=== PATIENT | male | born 1950 | race Hispanic/Latino ===

== ENCOUNTER 2017-08-15 17:18 | Inpatient (IN) | payer MEDICARE ==
[~2017-08-15] VITALS: Ht 175.3 cm; Wt 84.6 kg
--- NOTE | 2017-08-15 18:51 | Diagnostic Imaging Report ---
PROCEDURE: A single AP view of the chest. COMPARISON: None. INDICATIONS: SHORT OF BREATH FINDINGS: Lines/tubes: None. Lungs: Lungs are well-inflated. Diffuse interstitial opacities extending from the bailee, predominantly involving the left lung, and to a lesser degree, the right lower lung. No consolidation. Pleura: There is no pleural effusion or pneumothorax. Heart and mediastinum: Enlarged cardiac silhouette. Central pulmonary venous congestion. Bones: No acute bony abnormality. IMPRESSION: 1. findings may represent interstitial pulmonary edema/decompensated CHF. Atypical pneumonia/ infection is a consideration, in the appropriate clinical setting Ismael Elliott M.D. Dictated by: Ismael Elliott M.D. on 08/15/2017 at 19:00 Electronically approved by: Ismael Elliott M.D. on 08/15/2017 at 19:00
[2017-08-15 18:55] LABS: BASOPHILS % 0.4 % (0.0-1.0); EOSINOPHILS # (AUTO) 0.3 (0.0-0.4); EOSINOPHILS % 2.9 % (0.0-6.0); LYMPHOCYTES % 9.2 % (18.0-39.1); MEAN CORPUSCULAR HEMOGLOBIN 17.7 pg (28-32); MEAN CORPUSCULAR HGB CONC 27.8 g/dL (31-35); MEAN CORPUSCULAR VOLUME 63.9 fL (81-99); MONOCYTES # (AUTO) 1.6 (0.2-0.8); NEUTROPHILS # (AUTO) 7.5 (2.1-6.9); NEUTROPHILS % 71.4 % (38.7-80.0); PLATELET COUNT 135 x10e3/uL (140-360); RED CELL DISTRIBUTION WIDTH 20.9 % (11.7-14.4)
[2017-08-15 18:58] LABS: HEMOGLOBIN 5.5 g/dL (14.0-18.0)
[2017-08-15 18:59] LABS: HEMATOCRIT 19.8 % (38.2-49.6)
[2017-08-15 19:02] LABS: INR 1.41
[2017-08-15 19:03] LABS: PARTIAL THROMBOPLASTIN TIME 38.5 seconds (23.8-35.5)
[2017-08-15 19:04] LABS: CLARITY,URINE SL CLOUDY (CLEAR); COLOR,URINE STRAW (YELLOW)
[2017-08-15 19:05] LABS: KETONES,URINE TRACE (NEGATIVE); LEUKOCYTE ESTERASE ,URINE NEGATIVE (NEGATIVE); NITRITE,URINE NEGATIVE (NEGATIVE); PROTEIN,URINE DIPSTICK NEGATIVE (NEGATIVE); URINE UROBILINOGEN 8 mg/dL (0.2 - 1)
[2017-08-15 19:08] LABS: BILIRUBIN,URINE 1+ (NEGATIVE)
[2017-08-15 19:11] LABS: ALANINE AMINOTRANSFERASE 23 IU/L (0-55); ALBUMIN 2.3 g/dL (3.5-5.0); ALBUMIN/GLOBULIN RATIO 0.6 (0.8-2.0); ALKALINE PHOSPHATASE 85 IU/L (40-150); ANION GAP 9.3 mmol/L (8-16); BLOOD UREA NITROGEN 16 mg/dL (7-26); BUN/CREATININE RATIO 19 (6-25); CALCIUM 7.4 mg/dL (8.4-10.2); CARBON DIOXIDE 23 mmol/L (22-29); CHLORIDE 109 mmol/L (98-107); CREATINE KINASE 191 IU/L (30-200); CREATININE, SERUM 0.85 mg/dL (0.72-1.25); EST GLOMERULAR FILTRATION RATE > 60 ML/MIN (60-); GLUCOSE 157 mg/dL (74-118); POTASSIUM 3.3 mmol/L (3.5-5.1); SODIUM 138 mmol/L (136-145)
[2017-08-15 19:21] LABS: EPITHELIAL CELLS,URINE FEW /LPF
[2017-08-15] MEDS ORDERED: PANTOPRAZOLE 40 MG 10ML VIAL IV STA (20:09)
[2017-08-15] MEDS ORDERED: OCTREOTIDE ACETATE 0.05 MG/ML AMP IV STA (20:09)
[2017-08-15 20:56] LABS: HYPOCHROMASIA MARKED; LYMPHOCYTES % (MANUAL) 4 % (19-48); MONOCYTES % (MANUAL) 12 % (3.4-9.0); NEUTROPHILS % (MANUAL) 84 % (40-74)
[2017-08-15 20:57] LABS: ANISOCYTOSIS SLIG; PLATELET ESTIMATE SLIGHTLY DECREASED; PLATELET MORPHOLOGY COMMENT FEW LARGE; POIKILOCYTOSIS SLIGHT; RBC MORPHOLOGY COMMENT ABNORMAL
[2017-08-15] MEDS ORDERED: SODIUM CHLORIDE 0.9% 250ML 250 ML IV ONE (21:00)
[2017-08-15] MEDS: OCTREOTIDE ACETATE 500 MCG in SODIUM CHLORIDE 0.9% 250ML 250 ML IV SCH (21:14)
[2017-08-15] MEDS: AZITHROMYCIN 500MG/NS 250 ML 250 ML IV SCH (23:15)
[2017-08-15] MEDS ORDERED: PHYTONADIONE 10 MG/ML AMP PO ONE (23:15)
[2017-08-15] MEDS ORDERED: ALBUTEROL SULF 0.083% NEB SOLN 3 ML NEB NEB STA (23:23)
[2017-08-15] MEDS ORDERED: FUROSEMIDE INJ 10 MG/ML 2 ML VIAL IV ONE (23:30)
[2017-08-15] MEDS ORDERED: IPRATROPIUM BROMIDE 0.02% 2.5 ML NEB NEB ONE (23:30)
--- NOTE | 2017-08-15 23:35 | Diagnostic Imaging Report ---
EXAM: US ABDOMEN COMPLETE DATE: 08/15/2017 12:00 AM Time stamp on exam: 2245 hours INDICATION: Cirrhosis COMPARISON: None TECHNIQUE: Transverse and longitudinal avery scale and color doppler sonographic images of the upper abdomen were obtained. FINDINGS: LIVER 13.3 cm in the right midclavicular line. Cirrhotic liver morphology. SPLEEN 13.2 cm in maximum diameter. Normal echogenicity, no masses. GALLBLADDER No gallstones. Mild wall thickening likely related to portal hypertension. Negative sonographic Gadrner's sign. BILE DUCTS No intra nor extra-hepatic biliary dilation. Common bile duct measures 0.3 cm PANCREAS: Obscured by bowel gas RIGHT KIDNEY: 11.5 x 6 x 6.1 cm Echogenicity: Normal Collecting System: No hydronephrosis Stones: None Cyst/Mass: None LEFT KIDNEY: 11 x 5.8 x 5.8 cm Echogenicity: Normal Collecting System: No hydronephrosis Stones: None Cyst/Mass: None VESSELS: Aorta: Poorly visualized secondary to bowel gas Inferior Vena Cava: Poorly visualized secondary to bowel gas Main Portal Vein: 0.9 cm, normal size with hepatopetal flow. FREE FLUID: Partially visualized right pleural effusion and moderate volume ascites right upper quadrant. IMPRESSION: Cirrhosis with portal hypertension and moderate volume ascites in the right upper quadrant. Signed by: Dr. Mai Tracy M.D. on 08/15/2017 11:31 PM
[2017-08-15] MEDS: CEFTRIAXONE SOD 1 GM VIAL IV SCH (23:50)
[2017-08-16] MEDS ORDERED: SODIUM CHLORIDE 0.9% 50ML 50 ML ONE (00:20)
[2017-08-16] MEDS ORDERED: IOPAMIDOL 370 MG/ML 200 ML INFUS..BTL INJ ONE (00:20)
[2017-08-16] MEDS ORDERED: SODIUM CHLORIDE 0.9% 250ML 250 ML ONE ×3 (01:14→14:08)
--- NOTE | 2017-08-16 01:15 | Diagnostic Imaging Report ---
EXAM: CT CHEST W DATE: 08/16/2017 12:02 AM Time stamp on exam: 0033 hours INDICATION: Shortness of breath with positive d-dimer, cirrhosis and ascites COMPARISON: None TECHNIQUE: Multidetector CT scanning of the chest was performed. Coronal and sagittal multiplanar reformations were obtained. PE protocol performed. IV Contrast: 62 cc Isovue-370 CTDIvol has been reviewed. It is below the limits set by the Radiation Protocol Committee (RPC). FINDINGS: LUNGS AND AIRWAYS: The trachea and major bronchi are unremarkable. Interstitial thickening and dense centrilobular groundglass opacities predominantly in the bilateral upper lobes and to a lesser extent the lung bases and middle lobe. PLEURA: Moderate layering pleural effusions bilaterally. HEART, MEDIASTINUM, VESSELS: The heart is mildly enlarged. Trace pericardial effusion. No mediastinal mass or lymphadenopathy. No thoracic aortic aneurysm. No evidence of a pulmonary embolism. UPPER ABDOMEN: Cirrhotic liver morphology, splenomegaly, moderate volume ascites and splenic varices. MUSCULOSKELETAL: No acute findings. IMPRESSION: 1. No evidence of a pulmonary embolism. 2. Lung findings likely represent endobronchial spread of atypical infection. The differential diagnosis includes hypersensitivity pneumonitis. 3. Cirrhosis with portal hypertension, moderate volume ascites in the upper abdomen and moderate bilateral layering pleural effusions. Signed by: Dr. Mai Tracy M.D. on 08/16/2017 1:11 AM
[2017-08-16] MEDS ORDERED: METHYLPREDNISOLONE SOD SUCC 125 MG/2ML VIAL ONE (02:36)
[2017-08-16] MEDS ORDERED: DIPHENHYDRAMINE HCL INJ 1 ML ONE (02:37)
[2017-08-16] MEDS ORDERED: DIPHENHYDRAMINE HCL INJ 50 MG/ML VIAL IV ONE (03:00)
[2017-08-16] MEDS ORDERED: METHYLPREDNISOLONE SOD SUCC 125 MG/2ML VIAL IV ONE (03:00)
[2017-08-16] MEDS ORDERED: PHYTONADIONE 10 MG/ML AMP SQ ONE (04:15)
[2017-08-16 04:22] LABS: ABG PH 7.38 (7.31-7.41)
--- NOTE | 2017-08-16 04:35 | Diagnostic Imaging Report ---
EXAM: CHEST SINGLE (PORTABLE), AP 1 view ORDER DATE: 08/16/2017 4:10 AM Time stamp on exam: 0419 hours INDICATION: Worsening shortness of breath COMPARISON: CT of the chest August 16, 2017 FINDINGS: LINES/TUBES: None LUNGS: Bilateral reticulonodular changes and confluent airspace opacities predominantly in the bilateral upper lungs and to a lesser extent the lung bases. PLEURA: No effusions or pneumothorax. HEART AND MEDIASTINUM: Mild cardiac enlargement. BONES AND SOFT TISSUES: No acute findings. IMPRESSION: Findings consistent with multifocal atypical infection. Signed by: Dr. Mai Tracy M.D. on 08/16/2017 4:32 AM
[2017-08-16 06:34] LABS: INR 1.46
[2017-08-16 06:35] LABS: PARTIAL THROMBOPLASTIN TIME 39.5 seconds (23.8-35.5)
[2017-08-16 06:40] LABS: BASOPHILS % 0.2 % (0.0-1.0); EOSINOPHILS # (AUTO) 0.1 (0.0-0.4); EOSINOPHILS % 1.1 % (0.0-6.0); LYMPHOCYTES # (AUTO) 0.5 (1.0-3.2); LYMPHOCYTES % 4.4 % (18.0-39.1); MEAN CORPUSCULAR HEMOGLOBIN 18.2 pg (28-32); MEAN CORPUSCULAR HGB CONC 28.7 g/dL (31-35); MEAN CORPUSCULAR VOLUME 63.6 fL (81-99); MONOCYTES # (AUTO) 0.6 (0.2-0.8); MONOCYTES % 5.3 % (4.4-11.3); NEUTROPHILS # (AUTO) 9.2 (2.1-6.9); NEUTROPHILS % 87.9 % (38.7-80.0); PLATELET COUNT 112 x10e3/uL (140-360); RED BLOOD COUNT 2.58 x10e6/uL (4.3-5.7); RED CELL DISTRIBUTION WIDTH 20.6 % (11.7-14.4)
[2017-08-16 06:44] LABS: HEMATOCRIT 16.4 % (38.2-49.6); HEMOGLOBIN 4.7 g/dL (14.0-18.0)
[2017-08-16 06:49] LABS: PROTHROMBIN TIME 18.5 seconds (11.9-14.5)
[2017-08-16 07:00] LABS: ALANINE AMINOTRANSFERASE 21 IU/L (0-55); ALBUMIN 2.1 g/dL (3.5-5.0); ALBUMIN/GLOBULIN RATIO 0.6 (0.8-2.0); ALKALINE PHOSPHATASE 79 IU/L (40-150); ANION GAP 8.8 mmol/L (8-16); BLOOD UREA NITROGEN 14 mg/dL (7-26); BUN/CREATININE RATIO 18 (6-25); CALCIUM 7.2 mg/dL (8.4-10.2); CARBON DIOXIDE 24 mmol/L (22-29); CHLORIDE 110 mmol/L (98-107); CREATINE KINASE 199 IU/L (30-200); CREATININE, SERUM 0.78 mg/dL (0.72-1.25); EST GLOMERULAR FILTRATION RATE > 60 ML/MIN (60-); GLUCOSE 128 mg/dL (74-118); POTASSIUM 3.8 mmol/L (3.5-5.1); SODIUM 139 mmol/L (136-145)
[2017-08-16 07:20] VITALS: BP 123/79
[2017-08-16 07:30] VITALS: BP 123/79
[2017-08-16] MEDS ORDERED: FUROSEMIDE INJ 10 MG/ML 4 ML VIAL IV ONE (07:30)
[2017-08-16 07:50] VITALS: BP 130/75
--- NOTE | 2017-08-16 08:17 | Diagnostic Imaging Report ---
PROCEDURE:CHEST SINGLE (PORTABLE) TECHNIQUE:Portable AP chest INDICATION:Central line placement COMPARISON:[facility], DX, CHEST SINGLE (PORTABLE), 08/16/2017, 4:19. FINDINGS: See conclusion. CONCLUSION: 1. Right internal jugular central venous catheter tip about 7 cm from the atrial caval junction, terminating in the upper SVC. 2. Bilateral airspace opacities consistent with pulmonary edema increased from 4:19 AM. No evidence of pneumothorax. 3. No sizable pleural effusion. 4. Stable cardiomegaly. Dictated by: Cornelius Lainez M.D. on 08/16/2017 at 8:26 Electronically approved by: Cornelius Lainez M.D. on 08/16/2017 at 8:26
[2017-08-16] MEDS: OCTREOTIDE ACETATE 500 MCG in SODIUM CHLORIDE 0.9% 250ML 250 ML IV SCH ×2 (08:48→20:48)
[2017-08-16 08:53] LABS: LYMPHOCYTES % (MANUAL) 1 % (19-48); NEUTROPHILS % (MANUAL) 98 % (40-74); NUCLEATED RED BLOOD CELLS 2; PLATELET ESTIMATE ADEQUATE; PLATELET MORPHOLOGY COMMENT FEW LARGE; RBC MORPHOLOGY COMMENT ABNORMAL
[2017-08-16 08:54] LABS: ANISOCYTOSIS SLIG; MICROCYTOSIS SLIG; POIKILOCYTOSIS SLIG; TARGET CELLS FEW
[2017-08-16] MEDS ORDERED: ETOMIDATE 2 MG/ML 10 ML INJ IV STA (09:00)
[2017-08-16] MEDS ORDERED: SUCCINYLCHOLINE 200 MG/10 ML SYR IV STA (09:00)
[2017-08-16] MEDS: PANTOPRAZOLE 40 MG 10ML VIAL IV SCH ×2 (09:02→21:53)
[2017-08-16] MEDS ORDERED: PHYTONADIONE 10 MG/ML AMP SQ SCH (09:15)
[2017-08-16] MEDS: PROPOFOL IV EMULSION 10MG/ML 100 ML IV SCH (09:18)
[2017-08-16] MEDS: AZITHROMYCIN 500MG/NS 250 ML 250 ML IV SCH (09:52)
--- NOTE | 2017-08-16 10:11 | Diagnostic Imaging Report ---
PROCEDURE:CHEST SINGLE (PORTABLE) TECHNIQUE:Portable AP chest INDICATION:Intubation COMPARISON:[facility], , CHEST SINGLE (PORTABLE), 08/16/2017, 8:07. FINDINGS: See conclusion. CONCLUSION: 1. Endotracheal tube tip is 6 cm from the mariposa. 2. Other findings are unchanged from 8:07 AM. Dictated by: Cornelius Lainez M.D. on 08/16/2017 at 10:20 Electronically approved by: Cornelius Lainez M.D. on 08/16/2017 at 10:20
[2017-08-16] MEDS: CEFTRIAXONE SOD 1 GM VIAL IV SCH ×2 (11:00→23:18)
[2017-08-16 11:22] LABS: ABG HCO3 25 mmol/L (23-28); ABG PCO2 52 mmHg (41-51); ABG PH 7.28 (7.31-7.41); ABG PO2 247 mmHg (80-105)
[2017-08-16] MEDS: FUROSEMIDE INJ 10 MG/ML 2 ML VIAL IV PRN (17:10)
[2017-08-16 18:28] LABS: BASOPHILS % 0.1 % (0.0-1.0); LYMPHOCYTES # (AUTO) 0.6 (1.0-3.2); LYMPHOCYTES % 5.2 % (18.0-39.1); MEAN CORPUSCULAR HEMOGLOBIN 21.3 pg (28-32); MEAN CORPUSCULAR HGB CONC 30.7 g/dL (31-35); MEAN CORPUSCULAR VOLUME 69.3 fL (81-99); MONOCYTES # (AUTO) 0.6 (0.2-0.8); MONOCYTES % 4.6 % (4.4-11.3); NEUTROPHILS # (AUTO) 10.7 (2.1-6.9); NEUTROPHILS % 89.2 % (38.7-80.0); PLATELET COUNT 106 x10e3/uL (140-360); RED BLOOD COUNT 3.29 x10e6/uL (4.3-5.7)
[2017-08-16] MEDS ORDERED: SUCCINYLCHOLINE CHLORIDE 20 MG/ML 10ML VIAL ONE (18:33)
[2017-08-16] MEDS ORDERED: ETOMIDATE 2 MG/ML 10 ML INJ IV ONE (18:33)
[2017-08-16 18:34] LABS: HEMATOCRIT 22.8 % (38.2-49.6)
[2017-08-16 18:49] LABS: CREATINE KINASE MB 2.2 ng/mL (0.00-5.00)
[2017-08-16 19:00] VITALS: BP 102/58
[2017-08-16] MEDS ORDERED: CALCIUM GLUCONATE 10% INJ 9.3 MEQ in SODIUM CHLORIDE 0.9% 100 ML 100 ML IV ONE (19:00)
[2017-08-16] MEDS ORDERED: SODIUM CHLORIDE 0.9% 250ML 250 ML IV ONE (19:15)
[2017-08-16] MEDS ORDERED: CALCIUM GLUCONATE 10% INJ 0.465 MEQ/ML VIAL ONE (21:39)
[2017-08-16 21:44] LABS: HEMATOCRIT 23.6 % (38.2-49.6)
[2017-08-16 21:46] LABS: HEMOGLOBIN 7.2 g/dL (14.0-18.0)
[2017-08-16 21:53] LABS: ANION GAP 9.7 mmol/L (8-16); BLOOD UREA NITROGEN 18 mg/dL (7-26); BUN/CREATININE RATIO 21 (6-25); CARBON DIOXIDE 25 mmol/L (22-29); CHLORIDE 108 mmol/L (98-107); CREATININE, SERUM 0.84 mg/dL (0.72-1.25); EST GLOMERULAR FILTRATION RATE > 60 ML/MIN (60-); GLUCOSE 148 mg/dL (74-118); POTASSIUM 3.7 mmol/L (3.5-5.1); SODIUM 139 mmol/L (136-145)
[2017-08-16] MEDS: FUROSEMIDE INJ 10 MG/ML 4 ML VIAL IV SCH (21:54)
[2017-08-16] MEDS ORDERED: PHYTONADIONE 10MG/ML 20 MG in SODIUM CHLORIDE 0.9% 100 ML 100 ML IV ONE (23:45)
[2017-08-17] VITALS (17 sets, daily range): BP systolic 80–118; BP diastolic 46–66
[2017-08-17] MEDS ORDERED: PHYTONADIONE 10 MG/ML AMP IV ONE
[2017-08-17] MEDS ORDERED: SODIUM CHLORIDE 0.9% 250ML 250 ML ONE ×2 (00:02→01:24)
[2017-08-17] MEDS: OCTREOTIDE ACETATE 500 MCG in SODIUM CHLORIDE 0.9% 250ML 250 ML IV SCH ×3 (00:05→21:37)
[2017-08-17] MEDS: MIDAZOLAM HCL 25 MG in SODIUM CHLORIDE 0.9% 50ML 45 ML IV PRN ×2 (00:30→06:22)
[2017-08-17] MEDS ORDERED: SODIUM CHLORIDE 0.9% IV ONE (03:00)
[2017-08-17] MEDS ORDERED: VANCOMYCIN HCL IV ONE (03:00)
[2017-08-17] MEDS: PROPOFOL IV EMULSION 10MG/ML 100 ML IV SCH (03:27)
[2017-08-17] MEDS ORDERED: SODIUM CHLORIDE 0.9% 500ML 500 ML ONE (03:36)
[2017-08-17] MEDS ORDERED: VANCOMYCIN 1GM/NS 250 ML 500 ML ONE (03:37)
[2017-08-17] MEDS: FUROSEMIDE INJ 10 MG/ML 2 ML VIAL IV PRN (03:42)
[2017-08-17] MEDS: FUROSEMIDE INJ 10 MG/ML 4 ML VIAL IV SCH ×3 (04:55→17:38)
--- NOTE | 2017-08-17 05:38 | Diagnostic Imaging Report ---
EXAM: CHEST SINGLE (PORTABLE), AP 1 view ORDER DATE: 08/17/2017 5:00 AM Time stamp on exam: 0515 hours INDICATION: CHF COMPARISON: AP view of the chest October 14, 2017 FINDINGS: LINES/TUBES: Endotracheal tube terminates 3.2 cm above the mariposa. Right internal jugular vein central line terminates in expected location of the mid superior vena cava. LUNGS: Diffuse bilateral interstitial and alveolar opacities. PLEURA: No effusions or pneumothorax. HEART AND MEDIASTINUM: Stable enlargement of the cardiomediastinal silhouette. BONES AND SOFT TISSUES: No acute findings. IMPRESSION: Interval placement of endotracheal tube and internal jugular vein central line. Otherwise, stable appearance of the chest with findings consistent with multifocal pneumonia. Signed by: Dr. Mai Tracy M.D. on 08/17/2017 5:35 AM
[2017-08-17 05:40] LABS: BASOPHILS % 0.1 % (0.0-1.0); HEMATOCRIT 26.9 % (38.2-49.6); HEMOGLOBIN 8.5 g/dL (14.0-18.0); LYMPHOCYTES # (AUTO) 0.9 (1.0-3.2); LYMPHOCYTES % 4.7 % (18.0-39.1); MEAN CORPUSCULAR HEMOGLOBIN 22.6 pg (28-32); MEAN CORPUSCULAR HGB CONC 31.6 g/dL (31-35); MEAN CORPUSCULAR VOLUME 71.5 fL (81-99); MONOCYTES # (AUTO) 1.3 (0.2-0.8); MONOCYTES % 6.5 % (4.4-11.3); NEUTROPHILS # (AUTO) 16.9 (2.1-6.9); NEUTROPHILS % 87.7 % (38.7-80.0); PLATELET COUNT 107 x10e3/uL (140-360); RED BLOOD COUNT 3.76 x10e6/uL (4.3-5.7); RED CELL DISTRIBUTION WIDTH 25.3 % (11.7-14.4)
[2017-08-17 05:59] LABS: ALANINE AMINOTRANSFERASE 17 IU/L (0-55); ALBUMIN 1.9 g/dL (3.5-5.0); ALBUMIN/GLOBULIN RATIO 0.5 (0.8-2.0); ALKALINE PHOSPHATASE 68 IU/L (40-150); ANION GAP 8.4 mmol/L (8-16); BLOOD UREA NITROGEN 20 mg/dL (7-26); BUN/CREATININE RATIO 24 (6-25); CARBON DIOXIDE 26 mmol/L (22-29); CHLORIDE 109 mmol/L (98-107); CREATINE KINASE 83 IU/L (30-200); CREATININE, SERUM 0.82 mg/dL (0.72-1.25); EST GLOMERULAR FILTRATION RATE > 60 ML/MIN (60-); GLUCOSE 136 mg/dL (74-118); LIPASE 305 U/L (8-78); MAGNESIUM 1.8 MG/DL (1.3-2.1); POTASSIUM 3.4 mmol/L (3.5-5.1); SODIUM 140 mmol/L (136-145)
[2017-08-17 06:04] LABS: CALCIUM 6.9 mg/dL (8.4-10.2)
[2017-08-17 06:12] LABS: ANISOCYTOSIS MODERATE; HYPOCHROMASIA MARKED; MICROCYTOSIS MODERATE; PLATELET ESTIMATE SLIGHTLY DECREASED; PLATELET MORPHOLOGY COMMENT FEW LARGE; POLYCHROMASIA FEW; RBC MORPHOLOGY COMMENT ABNORMAL; TARGET CELLS FEW
[2017-08-17 06:19] LABS: THYROID STIMULATING HORMONE 0.439 uIU/mL (0.350-4.940)
[2017-08-17] MEDS: AZITHROMYCIN 500MG/NS 250 ML 250 ML IV SCH (10:31)
[2017-08-17] MEDS: PANTOPRAZOLE 40 MG 10ML VIAL IV SCH ×2 (10:31→21:37)
[2017-08-17] MEDS: CEFTRIAXONE SOD 1 GM VIAL IV SCH ×2 (11:08→23:18)
[2017-08-17] MEDS ORDERED: INFLUENZA VIRUS VAC SPLIT INJ 0.5 ML SYR IM ONE (12:00)
[2017-08-17] MEDS ORDERED: PNEUMOCOCCAL VACCINE POLYVALENT 23 MCG/0.5 ML VIAL IM ONE (12:00)
[2017-08-17] MEDS ORDERED: NOREPINEPHRINE BITARTRATE/ NS 250 ML ONE (12:06)
[2017-08-17] MEDS ORDERED: NOREPINEPHRINE BITARTRATE/ NS 250 ML IV SCH (12:15)
[2017-08-17 12:41] LABS: BASOPHILS % 0.1 % (0.0-1.0); EOSINOPHILS % 0.1 % (0.0-6.0); HEMATOCRIT 30.8 % (38.2-49.6); HEMOGLOBIN 9.8 g/dL (14.0-18.0); LYMPHOCYTES # (AUTO) 1.4 (1.0-3.2); LYMPHOCYTES % 5.3 % (18.0-39.1); MEAN CORPUSCULAR HEMOGLOBIN 22.4 pg (28-32); MEAN CORPUSCULAR HGB CONC 31.8 g/dL (31-35); MEAN CORPUSCULAR VOLUME 70.5 fL (81-99); MONOCYTES # (AUTO) 1.6 (0.2-0.8); MONOCYTES % 5.8 % (4.4-11.3); NEUTROPHILS # (AUTO) 23.7 (2.1-6.9); NEUTROPHILS % 87.6 % (38.7-80.0); PLATELET COUNT 136 x10e3/uL (140-360); RED BLOOD COUNT 4.37 x10e6/uL (4.3-5.7); RED CELL DISTRIBUTION WIDTH 25.4 % (11.7-14.4)
[2017-08-17] MEDS ORDERED: CALCIUM GLUCONATE 10% INJ 0.465 MEQ/ML VIAL ONE (12:46)
[2017-08-17] MEDS ORDERED: CALCIUM GLUCONATE 10% INJ 4.65 MEQ in SODIUM CHLORIDE 0.9% 50ML 50 ML IV ONE ×2 (13:30→16:30)
--- NOTE | 2017-08-17 13:38 | Operative Report ---
DATE OF PROCEDURE: August 17, 2017 REFERRING PHYSICIAN: Dr. Foster Forman PROCEDURE PERFORMED: Esophagogastroduodenoscopy. INDICATIONS FOR EGD: Anemia, history of melena, history of cirrhosis of the liver. MEDICATION: The patient is on a vent. Please see the anesthesiologist's note. PROCEDURE: With the patient in the supine position and under adequate general endotracheal anesthesia, the flexible fiberoptic Olympus gastroscope was introduced into the esophagus under direct visualization without any difficulty. Grade 1 to 2 esophageal varices were noted with the varices being predominantly grade 1 without active bleeding or stigmata of recent hemorrhage. The scope was then advanced with ease into the stomach, and some changes compatible with portal hypertensive gastropathy were noted in the antrum and distal body predominantly. Again, no active bleeding and no stigmata of recent hemorrhage was noted. The pylorus was of normal contour and shape. It was intubated with ease, and the scope was advanced all the way to the 2nd portion of the duodenum. The scope was then withdrawn slowly. Mucosa overlying the proximal 2nd portion and duodenal bulb appeared to be within normal limits. The scope was then withdrawn back into the stomach and retroflexed. A cluster of esophageal varices was noted in the fundus without active bleeding or stigmata of recent hemorrhage. The scope was then straightened out. The stomach was decompressed. Scope was subsequently withdrawn. Patient tolerated the procedure well. IMPRESSION 1. Esophageal varices, grade 1 to 2 but predominantly grade 1 without active bleeding or stigmata of recent hemorrhage. 2. Cluster of varices, fundus, without active bleeding or stigmata of recent hemorrhage. 3. Portal hypertensive gastropathy. PLAN: Follow H and H. Findings do not necessarily explain the patient's anemia or blood loss. Might benefit from a colonoscopy. Job#: [id number] cc:FOSTER FORMAN MD
[2017-08-17] MEDS ORDERED: POTASSIUM CHLORIDE 40 MEQ in SODIUM CHLORIDE 0.9% 250ML 250 ML IV ONE (16:30)
[2017-08-17] MEDS ORDERED: POTASSIUM CHLORIDE 100 ML IV ONE (16:30)
[2017-08-17] MEDS ORDERED: POTASSIUM CHLORIDE 20MEQ/100ML 200 ML IV ONE (16:30)
[2017-08-17] MEDS ORDERED: POTASSIUM CHLORIDE 20MEQ/100ML 100 ML IV ONE (16:45)
[2017-08-17] MEDS ORDERED: CALCIUM GLUCONATE 10% INJ 9.3 MEQ in SODIUM CHLORIDE 0.9% 100 ML 100 ML IV ONE (17:30)
[2017-08-17] MEDS ORDERED: SODIUM CHLORIDE 0.9% 1000ML 1,000 ML ONE (17:44)
[2017-08-17] MEDS ORDERED: KETAMINE HCL INJ 50 MG/ML 10 ML VIAL ONE (19:06)
[2017-08-17] MEDS: POTASSIUM CHLORIDE 20MEQ/100ML 100 ML IV SCH (21:37)
[2017-08-17 22:33] LABS: BASOPHILS % 0.2 % (0.0-1.0); EOSINOPHILS # (AUTO) 0.2 (0.0-0.4); EOSINOPHILS % 0.9 % (0.0-6.0); HEMATOCRIT 30.4 % (38.2-49.6); HEMOGLOBIN 9.6 g/dL (14.0-18.0); LYMPHOCYTES # (AUTO) 2.1 (1.0-3.2); LYMPHOCYTES % 8.4 % (18.0-39.1); MEAN CORPUSCULAR HEMOGLOBIN 22.3 pg (28-32); MEAN CORPUSCULAR HGB CONC 31.6 g/dL (31-35); MEAN CORPUSCULAR VOLUME 70.7 fL (81-99); MONOCYTES # (AUTO) 2.1 (0.2-0.8); MONOCYTES % 8.5 % (4.4-11.3); NEUTROPHILS # (AUTO) 19.9 (2.1-6.9); NEUTROPHILS % 80.7 % (38.7-80.0); PLATELET COUNT 142 x10e3/uL (140-360); RED CELL DISTRIBUTION WIDTH 26.1 % (11.7-14.4)
--- NOTE | 2017-08-17 23:05 | History and Physical ---
PRIMARY CARE PHYSICIAN: Unknown. CHIEF COMPLAINT: Anemia. HISTORY OF PRESENT ILLNESS: Mr. Guerra is a 67-year-old gentleman who was instructed to go to the ER by his clinic due to low blood counts. The patient was seen in clinic several days ago. He was called yesterday to report to the ER where he was found to have a hemoglobin of 5.5. REVIEW OF SYSTEMS: Unobtainable as the patient is intubated. PAST MEDICAL HISTORY: Sketchy. The patient has a history of cirrhosis due to chronic hepatitis C that was treated successfully with Harvoni 2 years ago. PAST SURGICAL HISTORY: He has no previous surgical history. MEDICATIONS: He has no home meds listed. ALLERGIES: HE HAS A STATED ALLERGY TO PENICILLIN AND CODEINE. FAMILY HISTORY: Unknown. SOCIAL HISTORY: The patient is . He does not smoke, drink or use illegal drugs. He had been generally independently functioning. PHYSICAL EXAM: PSYCHIATRIC: Unobtainable as the patient is intubated. VITAL SIGNS: Blood pressure currently 102/58. He has not been hypertensive. Pulse 62 and regular. Respiratory rate 24. O2 sat 97% better after intubation. Temperature 97.6. HEENT: Head is atraumatic. His eyes are anicteric. He is orally intubated. NECK: Is supple with no mass or thyromegaly. LYMPHATIC SYSTEM: No palpable cervical, axillary or inguinal adenopathy. CARDIOVASCULAR: Heart has a regular rate and rhythm without extra heart sound. He has 1+ pitting edema of both lower extremities. RESPIRATORY: Lungs reveal diminished breath sounds, but otherwise clear, somewhat coarse in nature. He is being ventilated. GASTROINTESTINAL: Abdomen is soft without organomegaly, masses or tenderness. Normal bowel sounds present. CUTANEOUS: Skin is warm and dry to touch with no rash or skin breakdown. MUSCULOSKELETAL: His joints are in normal alignment without erythema or swelling. Has no calf tenderness. NEUROLOGIC: Currently sedated; however, does move all extremities when sedation weaned. DIAGNOSTIC STUDIES: Ultrasound shows cirrhosis with portal hypertension and moderate ascites. First chest x-ray shows pulmonary edema versus pneumonia. CT chest done due to elevated D-dimer shows no pulmonary embolus and atypical bilateral multifocal pneumonia. Last chest x-ray after intubation again showed pulmonary edema versus multifocal bilateral pneumonia. His flu screen was negative. UA was clear. Initial blood gas with pH 7.38, PCO2 of 34, PO2 88. Second blood gas pH 7.28, PCO2 of 52, PO2 247, that is after intubation. The patient developed respiratory distress while in the ER and was urgently intubated. His lactic acid level 23.4. Troponin 0.013, 0.014.. BNP 339.3. Chemistry showed normal electrolytes. CO2 23. Creatinine 0.85. BUN 16 for a normal GFR. Calcium 7.4. Glucose 157. His transaminase, bilirubin and alkaline phos are normal. CBC shows a white count of 10.45 with 71% neutrophils, 9% lymphocytes, 15% monocytes. Hemoglobin 5.5, hematocrit 19.8 and platelet count 135,000. IMPRESSION AND PLAN 1. Severe sepsis due to pneumonia. The patient is admitted for IV Zithromax and Rocephin. 2. Acute respiratory failure due to pneumonia and hypoxia. The patient was intubated. Will be admitted to ICU on ventilator with pulmonary consulted for ventilator management. 3. Acute pulmonary edema. The patient will be started on IV Lasix q.6 hours, most likely due to hypoosmotic state. 4. Upper GI bleed and severe acute blood loss anemia. The patient will be on Protonix drip and octreotide drip. Will transfuse 4 units of red cells, 2 units of fresh frozen plasma and GI has been consulted for urgent upper endoscopy. 5. Cirrhosis with coagulopathy. The patient will be given fresh frozen plasma, as noted. For prophylaxis again the patient will be using SCDs for DVT prophylaxis. No need for anticoagulation since he is already auto anticoagulated and Protonix for GI prophylaxis. Job#: [id number]
[2017-08-18] VITALS (43 sets, daily range): BP systolic 97–118; BP diastolic 43–78
[2017-08-18 06:04] LABS: BASOPHILS % 0.2 % (0.0-1.0); EOSINOPHILS # (AUTO) 0.5 (0.0-0.4); EOSINOPHILS % 2.7 % (0.0-6.0); HEMATOCRIT 31.5 % (38.2-49.6); HEMOGLOBIN 9.8 g/dL (14.0-18.0); LYMPHOCYTES # (AUTO) 2.1 (1.0-3.2); LYMPHOCYTES % 11.6 % (18.0-39.1); MEAN CORPUSCULAR HEMOGLOBIN 22.1 pg (28-32); MEAN CORPUSCULAR HGB CONC 31.1 g/dL (31-35); MEAN CORPUSCULAR VOLUME 71.1 fL (81-99); MONOCYTES # (AUTO) 1.9 (0.2-0.8); MONOCYTES % 10.6 % (4.4-11.3); NEUTROPHILS % 72.8 % (38.7-80.0); PLATELET COUNT 119 x10e3/uL (140-360); RED BLOOD COUNT 4.43 x10e6/uL (4.3-5.7); RED CELL DISTRIBUTION WIDTH 26.3 % (11.7-14.4)
[2017-08-18 06:25] LABS: ALANINE AMINOTRANSFERASE 20 IU/L (0-55); ALBUMIN 1.9 g/dL (3.5-5.0); ALBUMIN/GLOBULIN RATIO 0.5 (0.8-2.0); ALKALINE PHOSPHATASE 82 IU/L (40-150); ANION GAP 8.4 mmol/L (8-16); BLOOD UREA NITROGEN 25 mg/dL (7-26); BUN/CREATININE RATIO 32 (6-25); CALCIUM 7.1 mg/dL (8.4-10.2); CARBON DIOXIDE 27 mmol/L (22-29); CHLORIDE 110 mmol/L (98-107); CREATININE, SERUM 0.77 mg/dL (0.72-1.25); EST GLOMERULAR FILTRATION RATE > 60 ML/MIN (60-); GLUCOSE 91 mg/dL (74-118); MAGNESIUM 1.9 MG/DL (1.3-2.1); PHOSPHORUS 1.7 MG/DL (2.3-4.7); POTASSIUM 3.4 mmol/L (3.5-5.1); SODIUM 142 mmol/L (136-145)
--- NOTE | 2017-08-18 07:10 | Diagnostic Imaging Report ---
EXAM: CHEST SINGLE (PORTABLE), AP 1 view ORDER DATE: 08/18/2017 5:00 AM Time stamp on exam: 0602 hours INDICATION: Intubated COMPARISON: AP view of the chest August 17, 2017 FINDINGS: LINES/TUBES: Stable position of endotracheal tube and right internal jugular vein central line. LUNGS: Stable diffuse bilateral airspace opacities. PLEURA: No effusions or pneumothorax. HEART AND MEDIASTINUM: Stable. BONES AND SOFT TISSUES: No acute findings. IMPRESSION: No interval change in exam. Signed by: Dr. Mai Tracy M.D. on 08/18/2017 7:06 AM
[2017-08-18 08:16] LABS: EOSINOPHILS % (MANUAL) 2 % (0-7); LYMPHOCYTES % (MANUAL) 6 % (19-48); MONOCYTES % (MANUAL) 6 % (3.4-9.0); NEUTROPHILS % (MANUAL) 86 % (40-74)
[2017-08-18 08:22] LABS: HYPOCHROMASIA MODERATE
[2017-08-18 08:23] LABS: ANISOCYTOSIS MODERATE; PLATELET ESTIMATE SLIGHTLY DECREASED; PLATELET MORPHOLOGY COMMENT FEW LARGE; POIKILOCYTOSIS SLIGHT
[2017-08-18 08:24] LABS: RBC MORPHOLOGY COMMENT ABNORMAL
[2017-08-18] MEDS: PROPOFOL IV EMULSION 10MG/ML 100 ML IV SCH (09:00)
[2017-08-18] MEDS: POTASSIUM CHLORIDE 20MEQ/100ML 100 ML IV SCH ×2 (10:11→21:00)
[2017-08-18] MEDS: OCTREOTIDE ACETATE 500 MCG in SODIUM CHLORIDE 0.9% 250ML 250 ML IV SCH ×2 (10:11→19:01)
[2017-08-18] MEDS: AZITHROMYCIN 500MG/NS 250 ML 250 ML IV SCH (10:11)
[2017-08-18] MEDS: PANTOPRAZOLE 40 MG 10ML VIAL IV SCH ×2 (10:11→21:00)
[2017-08-18] MEDS: FUROSEMIDE INJ 10 MG/ML 4 ML VIAL IV SCH ×2 (10:11→21:00)
[2017-08-18] MEDS ORDERED: NOREPINEPHRINE BITARTRATE/ NS 250 ML IV PRN (10:15)
[2017-08-18] MEDS ORDERED: PROPOFOL IV EMULSION 10MG/ML 100 ML IV PRN (10:15)
[2017-08-18] MEDS: CEFTRIAXONE SOD 1 GM VIAL IV SCH ×2 (11:24→23:37)
[2017-08-18] MEDS ORDERED: POTASSIUM PHOSPHATE 20 MM in SODIUM CHLORIDE 0.9% 250ML 250 ML IV ONE (12:35)
--- NOTE | 2017-08-18 13:18 | Progress Note ---
DATE: August 18, 2017 PULMONARY MEDICINE PROGRESS NOTE SUBJECTIVE: Mr. Guerra was seen and examined at bedside. The patient continues to have intubated state. He is on Versed 3 mg per hour. Urine output is tremendous as he was on Lasix 3 times a day yesterday, and today he is on twice a day scheduled. The patient had 1.7 L in, 3.0 L out documented. The patient's chest x-ray is still stable with moderate to large bilateral opacities. REVIEW OF SYSTEMS: Cannot get as he is intubated. OBJECTIVE VITALS: Afebrile. Vital signs noted per electronic record. GENERAL: In no acute distress. He moves when sedation is off but remains mostly sedated and confused. HEENT: Normocephalic, atraumatic. NECK: Supple. Throat midline. LUNGS: Bilateral air entry, a few rhonchi. CARDIOVASCULAR: S1, S2. No murmurs, rubs or gallops. ABDOMEN: Soft, nontender. EXTREMITIES: No clubbing, no cyanosis. There is stable edema, about 2 to 3+. INTEGUMENT: No rash, no purpura. LABS: 3.4 potassium, 25 BUN, 0.77 creatinine, 18 white count, 31 hematocrit, 119 platelets. BNP is 151. Phosphorus 1.7, calcium 7.1, albumin 12.9. IMPRESSION AND PLAN 1. Acute respiratory failure, intubated. 2. Fluid overload. 3. Admit for acute gastrointestinal bleed, severe. 4. Portal/gastric hypertension, although no active evidence of bleed on upper endoscopy. 5. Abnormal chest x-ray, possible severe pneumonia. 6. Multiple electrolyte abnormalities. Replete electrolytes. Will follow up closely. Echo came back with 50% ejection fraction. Will consider extubating tomorrow after some good urinary output. Follow up the I's and O's. Continue antibiotics for possible urinary tract infection with gram-negative rods. Follow up as x-ray hopefully gets better. Of note, x-ray is still significantly abnormal, but he is urinating a lot, which is a good sign. Job#: [id number]
--- NOTE | 2017-08-18 20:41 | Consultation ---
DATE OF CONSULTATION: August 17, 2017 PULMONARY/CRITICAL CARE CONSULT REFERRING PHYSICIAN: Dr. Forman. REASON FOR REFERRAL: Acute respiratory failure. HISTORY: Mr. Guerra is a 67-year-old gentleman with acute respiratory failure. Patient presented to emergency room. Patient noted to have very high heart rate, tachypnea, increased blood pressure, increased temperature. Patient appeared short of breath. Patient with shortness of breath. Onset a few days ago. No cough, no sputum production, no fevers. Patient had blood work just the day previous and had him come to the emergency room for low blood count. When patient came to the emergency room, chest x-ray consistent with interstitial pulmonary edema, decompensated CHF and atypical pneumonia. Hemoglobin was 5.5, hematocrit was 19.8, platelets 135,000. Patient with creatinine of 0.8, albumin 2.3, BNP level of 339. Patient presents for acute respiratory failure after he was intubated due to worsening shortness of breath. PAST MEDICAL HISTORY: Hepatitis C, cirrhosis, history of EGD. SOCIAL HISTORY: Limited, cannot get. Previous records suggest no smoking, no alcohol. FAMILY HISTORY: Noncontributory to this. MEDICATIONS AND ALLERGIES: REVIEWED PER ELECTRONIC RECORD. PENICILLIN AND CODEINE ARE STATED ALLERGIES. REVIEW OF SYSTEMS: Cannot get as he is intubated. OBJECTIVE GENERAL: Patient is currently afebrile. VITAL SIGNS: Noted per electronic record. Originally 88% oxygen saturation on room air coming into emergency room. HEENT: Normocephalic, atraumatic. NECK: Supple. Throat midline. LUNGS: Bilateral air entry, limited. A few rhonchi heard. CARDIOVASCULAR: S1, S2. No murmurs, rubs or gallops. ABDOMEN: Soft, nontender. EXTREMITIES: No clubbing, no cyanosis. There is 2+ edema. INTEGUMENT: No rash, no purpura. LABS: White count 11, hematocrit 20, platelets 135,000. Potassium 3.3, BUN 16, creatinine 0.85. Albumin 2.3. Chest x-ray and CT chest were done and reviewed. These included no evidence of PE, lung findings suggestive of pneumonia versus fluid overload, cirrhosis and portal hypertension, moderate volume ascites, moderate bilateral pleural effusions. IMPRESSIONS AND PLAN 1. Acute respiratory failure, intubated. 2. Reported gastrointestinal bleed, unclear etiology. 3. Abnormal chest radiography. 4. Bilateral large lung infiltrates. 5. Bilateral pleural effusions. 6. Treat for pneumonia. 7. Treat for fluid overload and anasarca. 8. History of cirrhosis. 9. History of portal hypertension. 10. Mild coagulopathy. 11. Thrombocytopenia. Continue current treatment. Check pleural cultures. Check influenza assay. Keep him intubated for now. EGD and possible colonoscopy in the morning. Continue sedation for now. Follow up closely. ET tube sightly high now at 25 cm ad armando. Will repeat chest x-ray and evaluate. Greater than 30 minutes in direct care today. Thank you very much Dr. Forman for this consult. Do not hesitate to contact if I can help him in any way. Job#: [id number] LISA
[2017-08-18 20:47] LABS: BASOPHILS % 0.2 % (0.0-1.0); EOSINOPHILS # (AUTO) 0.4 (0.0-0.4); EOSINOPHILS % 3.2 % (0.0-6.0); HEMOGLOBIN 9.2 g/dL (14.0-18.0); LYMPHOCYTES # (AUTO) 1.5 (1.0-3.2); LYMPHOCYTES % 13.8 % (18.0-39.1); MEAN CORPUSCULAR HEMOGLOBIN 22.1 pg (28-32); MEAN CORPUSCULAR HGB CONC 30.7 g/dL (31-35); MEAN CORPUSCULAR VOLUME 71.9 fL (81-99); MONOCYTES # (AUTO) 1.4 (0.2-0.8); MONOCYTES % 12.6 % (4.4-11.3); NEUTROPHILS # (AUTO) 7.7 (2.1-6.9); NEUTROPHILS % 68.8 % (38.7-80.0); PLATELET COUNT 107 x10e3/uL (140-360); RED BLOOD COUNT 4.17 x10e6/uL (4.3-5.7); RED CELL DISTRIBUTION WIDTH 27.4 % (11.7-14.4)
[2017-08-19] VITALS (46 sets, daily range): BP systolic 82–115; BP diastolic 47–71
[2017-08-19] MEDS: MIDAZOLAM HCL 25 MG in SODIUM CHLORIDE 0.9% 50ML 45 ML IV PRN ×2 (01:37→06:47)
[2017-08-19] MEDS: OCTREOTIDE ACETATE 500 MCG in SODIUM CHLORIDE 0.9% 250ML 250 ML IV SCH ×2 (05:04→14:25)
[2017-08-19 05:48] LABS: BASOPHILS % 0.4 % (0.0-1.0); EOSINOPHILS # (AUTO) 0.5 (0.0-0.4); EOSINOPHILS % 4.8 % (0.0-6.0); HEMATOCRIT 30.7 % (38.2-49.6); HEMOGLOBIN 9.3 g/dL (14.0-18.0); LYMPHOCYTES # (AUTO) 1.5 (1.0-3.2); LYMPHOCYTES % 14.6 % (18.0-39.1); MEAN CORPUSCULAR HGB CONC 30.3 g/dL (31-35); MEAN CORPUSCULAR VOLUME 72.6 fL (81-99); MONOCYTES # (AUTO) 1.2 (0.2-0.8); MONOCYTES % 12.1 % (4.4-11.3); NEUTROPHILS # (AUTO) 6.7 (2.1-6.9); NEUTROPHILS % 66.6 % (38.7-80.0); PLATELET COUNT 104 x10e3/uL (140-360); RED BLOOD COUNT 4.23 x10e6/uL (4.3-5.7); RED CELL DISTRIBUTION WIDTH 27.4 % (11.7-14.4)
[2017-08-19 06:05] LABS: ANION GAP 10.4 mmol/L (8-16); BLOOD UREA NITROGEN 23 mg/dL (7-26); BUN/CREATININE RATIO 31 (6-25); CARBON DIOXIDE 28 mmol/L (22-29); CHLORIDE 110 mmol/L (98-107); CREATININE, SERUM 0.74 mg/dL (0.72-1.25); EST GLOMERULAR FILTRATION RATE > 60 ML/MIN (60-); GLUCOSE 83 mg/dL (74-118); MAGNESIUM 1.7 MG/DL (1.3-2.1); PHOSPHORUS 2.7 MG/DL (2.3-4.7); POTASSIUM 3.4 mmol/L (3.5-5.1); SODIUM 145 mmol/L (136-145)
--- NOTE | 2017-08-19 06:37 | Diagnostic Imaging Report ---
EXAM: CHEST SINGLE (PORTABLE), AP 1 view ORDER DATE: 08/19/2017 5:00 AM Time stamp on exam: 0557 hours INDICATION: Anemia COMPARISON: AP view of the chest August 18, 2017 FINDINGS: LINES/TUBES: Stable endotracheal tube, right internal jugular vein central line. LUNGS: Stable bilateral airspace opacities. PLEURA: No effusions or pneumothorax. HEART AND MEDIASTINUM: Stable BONES AND SOFT TISSUES: No acute findings. IMPRESSION: No interval change. Signed by: Dr. Mia Tracy M.D. on 08/19/2017 6:33 AM
[2017-08-19] MEDS: AZITHROMYCIN 500MG/NS 250 ML 250 ML IV SCH (09:33)
[2017-08-19] MEDS: PANTOPRAZOLE 40 MG 10ML VIAL IV SCH ×2 (09:33→20:55)
[2017-08-19] MEDS: FUROSEMIDE INJ 10 MG/ML 4 ML VIAL IV SCH ×2 (09:33→20:55)
[2017-08-19] MEDS: POTASSIUM CHLORIDE 20MEQ/100ML 100 ML IV SCH ×2 (09:33→20:55)
[2017-08-19] MEDS: CEFTRIAXONE SOD 1 GM VIAL IV SCH ×2 (13:35→23:15)
--- NOTE | 2017-08-19 14:35 | Diagnostic Imaging Report ---
EXAM: Abdomen, one view INDICATION: Pain. COMPARISON: None available. FINDINGS: LINES: Enteric feeding catheter with tip projecting over the expected region of the gastric fundus. Bowel: No air fluid levels.. No pneumoperitoneum.. Moderate amount of retained feces and air are noted in the colon and rectum. No calcifications project over the renal shadows, expected course of the ureters bilaterally, and bladder. Soft tissues: Normal. Bones: No acute osseous abnormality. Degenerative changes of the lumbar spine and pelvis. Impression: No acute radiographic abnormality. Signed by: Dr. Sudeep Hinson M.D. on 08/19/2017 2:32 PM
[2017-08-19] MEDS ORDERED: POTASSIUM CHLORIDE 20MEQ/100ML 200 ML IV ONE (16:00)
--- NOTE | 2017-08-19 17:07 | Progress Note ---
DATE: August 19, 2017 PULMONARY MEDICINE PROGRESS NOTE SUBJECTIVE: Mr. Guerra was seen and examined at the bedside. He was seen to have a stable x-ray with moderate bilateral infiltrates. Abdominal x-ray was unremarkable with coiled feeding tube. He remains on octreotide IV but he has been changed to intermittent proton pump inhibitor. No clinical bleeding. Jevity 1.5 was to be started, 1.4 liters in, 5.2 liters out. He remains intubated on ventilator. After serial evaluation, the patient was seen to come off sedation well. He was seen to have continued events of ability to accept the ventilator. REVIEW OF SYSTEMS: Cannot get as he is intubated. OBJECTIVE VITAL SIGNS: Noted reviewed per electronic record, stable. GENERAL: Off sedation, he is awake and appears calm on ventilator. LUNGS: Bilateral air entry, few rhonchi bilaterally. On suctioning there are moderate to large secretions. EXTREMITIES: No clubbing or cyanosis. There is still 2+ edema, but much better than before. LABORATORY DATA: Potassium 3.4, BUN 23, creatinine 0.74, white count 10, hematocrit 31, platelets 104,000. BNP 152. IMPRESSION 1. Acute respiratory failure, intubated/extubated. 2. Abnormal chest radiography, bilateral infiltrates. 3. Fluid overload, improving. 4. Cirrhosis. 5. Gastrointestinal bleeding. PLAN: Continue current treatment. Continue proton pump inhibitor. After evaluation, we will give him trial extubation. The patient is able to tolerate spontaneous breathing. Will evaluate him in a few hours, and see if he is ready to start eating orally. Replete potassium aggressively. Follow up on more Lasix. Continue antibiotics for what appears to be pneumonitis. Follow up cultures until finalization. Greater than 30 minutes in direct care today. Multiple evaluations and interventions. Will follow along closely. Job#: [id number]
[2017-08-19] MEDS: DEXTROSE 5% 1,000 ML IV SCH (18:33)
[2017-08-20] VITALS (32 sets, daily range): BP systolic 95–119; BP diastolic 49–85
[2017-08-20] MEDS: OCTREOTIDE ACETATE 500 MCG in SODIUM CHLORIDE 0.9% 250ML 250 ML IV SCH ×3 (01:10→21:43)
[2017-08-20 05:54] LABS: BASOPHILS % 0.3 % (0.0-1.0); EOSINOPHILS # (AUTO) 0.6 (0.0-0.4); EOSINOPHILS % 5.9 % (0.0-6.0); HEMATOCRIT 29.6 % (38.2-49.6); LYMPHOCYTES # (AUTO) 1.1 (1.0-3.2); LYMPHOCYTES % 11.8 % (18.0-39.1); MEAN CORPUSCULAR HEMOGLOBIN 22.4 pg (28-32); MEAN CORPUSCULAR HGB CONC 30.4 g/dL (31-35); MEAN CORPUSCULAR VOLUME 73.8 fL (81-99); MONOCYTES # (AUTO) 1.1 (0.2-0.8); MONOCYTES % 11.3 % (4.4-11.3); NEUTROPHILS # (AUTO) 6.6 (2.1-6.9); PLATELET COUNT 101 x10e3/uL (140-360); RED BLOOD COUNT 4.01 x10e6/uL (4.3-5.7); RED CELL DISTRIBUTION WIDTH 27.7 % (11.7-14.4)
[2017-08-20 06:27] LABS: ANION GAP 7.4 mmol/L (8-16); BLOOD UREA NITROGEN 18 mg/dL (7-26); BUN/CREATININE RATIO 24 (6-25); CALCIUM 7.2 mg/dL (8.4-10.2); CARBON DIOXIDE 28 mmol/L (22-29); CHLORIDE 109 mmol/L (98-107); CREATININE, SERUM 0.75 mg/dL (0.72-1.25); EST GLOMERULAR FILTRATION RATE > 60 ML/MIN (60-); GLUCOSE 117 mg/dL (74-118); LIPASE 24 U/L (8-78); MAGNESIUM 1.7 MG/DL (1.3-2.1); POTASSIUM 3.4 mmol/L (3.5-5.1); SODIUM 141 mmol/L (136-145)
--- NOTE | 2017-08-20 06:30 | Diagnostic Imaging Report ---
EXAM: CHEST SINGLE (PORTABLE), AP 1 view ORDER DATE: 08/20/2017 5:00 AM Time stamp on exam: 0552 hours INDICATION: Pneumonia COMPARISON: AP view of the chest August 19, 2017 FINDINGS: LINES/TUBES: Stable position of right internal jugular vein central line. Interval removal of the endotracheal tube. LUNGS: Stable bilateral airspace opacities. PLEURA: No effusions or pneumothorax. HEART AND MEDIASTINUM: Stable appearance BONES AND SOFT TISSUES: No acute findings. IMPRESSION: No interval change. Signed by: Dr. Mai Tracy M.D. on 08/20/2017 6:26 AM
[2017-08-20] MEDS: AZITHROMYCIN 500MG/NS 250 ML 250 ML IV SCH (10:03)
[2017-08-20] MEDS: PANTOPRAZOLE 40 MG 10ML VIAL IV SCH ×2 (10:03→21:57)
[2017-08-20] MEDS: FUROSEMIDE INJ 10 MG/ML 4 ML VIAL IV SCH (10:03)
[2017-08-20] MEDS: CEFTRIAXONE SOD 1 GM VIAL IV SCH ×2 (10:03→23:24)
[2017-08-20] MEDS: POTASSIUM CHLORIDE 20MEQ/100ML 100 ML IV SCH ×2 (10:03→21:57)
[2017-08-20] MEDS ORDERED: POTASSIUM CHLORIDE 20MEQ/100ML 100 ML IV ONE (16:30)
[2017-08-20] MEDS: DEXTROSE 5% 1,000 ML IV SCH (16:30)
[2017-08-20] MEDS ORDERED: POTASSIUM CHLORIDE 20 MEQ TAB CR PO ONE (16:30)
[2017-08-21] VITALS (7 sets, daily range): BP systolic 96–108; BP diastolic 56–67
--- NOTE | 2017-08-21 04:13 | Progress Note ---
DATE: August 20, 2017 PULMONARY MEDICINE PROGRESS NOTE SUBJECTIVE: Mr. Guerra was seen and examined at the bedside. He remains spontaneously breathing. He is calm. He is handling secretions as he is expectorating the amount all the way. In 1.2 L, out 5.2 L. Oxygen saturation 92% on 2 L per minute of oxygen. Marin in with good urine output. Chest x-ray stable pneumonitis initially noted. REVIEW OF SYSTEMS: No headaches, no diarrhea. OBJECTIVE VITAL SIGNS: Afebrile. Vital signs noted per the chart record. GENERAL: No acute distress, alert and calm. HEENT: Normocephalic and atraumatic. NECK: Supple. Throat midline. LUNGS: Bilateral air entry. Few crackles. CARDIOVASCULAR: S1 and S2. No murmurs, rubs, or gallops. ABDOMEN: Soft and nontender. EXTREMITIES: No clubbing. No cyanosis. There is no large edema. It is only 1+ today. INTEGUMENT: No rash or purpura. LABS: Potassium 2.4, creatinine 0.7, white count 9.4, and platelets 101,000. IMPRESSIONS 1. Acute respiratory failure, intubated, then extubated. 2. Pneumonia, unclear if this was the predominant thing that led to presentation. 3. Critical anemia and some level of gastrointestinal blood loss on admission as another critical condition on presentation. 4. Hypokalemia. 5. Weakness. 6. Fluid overload, much better. PLAN 1. Continue diuretics at this time. We will decrease the diuretic dose however. 2. We will also continue to start him on diet as much tolerated. 3. Give more potassium repletion noting he has good urine output. We will consider getting the Marin out by tomorrow. 4. Patient will get repeat blood work and check the electrolytes as well as the platelets tomorrow. 5. We will follow closely. 6. Continue treatment for the possibility of a urinary tract infection as well. Job#: [id number]
[2017-08-21] MEDS: OCTREOTIDE ACETATE 500 MCG in SODIUM CHLORIDE 0.9% 250ML 250 ML IV SCH ×2 (04:29→17:03)
--- NOTE | 2017-08-21 06:33 | Diagnostic Imaging Report ---
EXAM: CHEST SINGLE (PORTABLE), AP 1 view ORDER DATE: 08/21/2017 5:00 AM Time stamp on exam: 0540 hours INDICATION: Pneumonia COMPARISON: AP view of the chest August 20, 2017 FINDINGS: LINES/TUBES: Stable position right internal jugular vein central line. LUNGS: Stable diffuse bilateral airspace opacities. PLEURA: No effusions or pneumothorax. HEART AND MEDIASTINUM: Stable appearance. BONES AND SOFT TISSUES: No acute findings. IMPRESSION: No interval change. Signed by: Dr. Mai Tracy M.D. on 08/21/2017 6:30 AM
[2017-08-21 07:07] LABS: BASOPHILS # (AUTO) 0.1 (0.0-0.1); BASOPHILS % 0.6 % (0.0-1.0); EOSINOPHILS # (AUTO) 0.6 (0.0-0.4); EOSINOPHILS % 5.1 % (0.0-6.0); HEMATOCRIT 30.8 % (38.2-49.6); HEMOGLOBIN 9.1 g/dL (14.0-18.0); LYMPHOCYTES # (AUTO) 1.3 (1.0-3.2); LYMPHOCYTES % 12.1 % (18.0-39.1); MEAN CORPUSCULAR HEMOGLOBIN 21.9 pg (28-32); MEAN CORPUSCULAR HGB CONC 29.5 g/dL (31-35); MEAN CORPUSCULAR VOLUME 74.2 fL (81-99); MONOCYTES # (AUTO) 1.3 (0.2-0.8); MONOCYTES % 11.6 % (4.4-11.3); NEUTROPHILS # (AUTO) 7.5 (2.1-6.9); NEUTROPHILS % 69.9 % (38.7-80.0); PLATELET COUNT 116 x10e3/uL (140-360); RED BLOOD COUNT 4.15 x10e6/uL (4.3-5.7)
[2017-08-21 07:26] LABS: ALANINE AMINOTRANSFERASE 20 IU/L (0-55); ALKALINE PHOSPHATASE 77 IU/L (40-150); ANION GAP 8.7 mmol/L (8-16); BILIRUBIN,DIRECT 0.5 mg/dL (0.0-5.0); BLOOD UREA NITROGEN 15 mg/dL (7-26); BUN/CREATININE RATIO 19 (6-25); CALCIUM 7.1 mg/dL (8.4-10.2); CARBON DIOXIDE 26 mmol/L (22-29); CHLORIDE 105 mmol/L (98-107); CREATININE, SERUM 0.78 mg/dL (0.72-1.25); EST GLOMERULAR FILTRATION RATE > 60 ML/MIN (60-); GLUCOSE 111 mg/dL (74-118); MAGNESIUM 1.5 MG/DL (1.3-2.1); POTASSIUM 3.7 mmol/L (3.5-5.1); SODIUM 136 mmol/L (136-145)
[2017-08-21 07:43] LABS: B-TYPE NATRIURETIC PEPTIDE2 203.1 pg/mL (0-100)
[2017-08-21 08:38] LABS: ANISOCYTOSIS MODE; HYPOCHROMASIA SLIGHT; POIKILOCYTOSIS SLIGHT; RBC MORPHOLOGY COMMENT ABNORMAL; TARGET CELLS FEW
[2017-08-21 08:39] LABS: PLATELET ESTIMATE SLIGHTLY DECREASED; PLATELET MORPHOLOGY COMMENT FEW LARGE
[2017-08-21] MEDS: POTASSIUM CHLORIDE 20MEQ/100ML 100 ML IV SCH ×2 (09:00→20:44)
[2017-08-21] MEDS: FUROSEMIDE INJ 10 MG/ML 4 ML VIAL IV SCH (09:23)
[2017-08-21] MEDS: PANTOPRAZOLE 40 MG 10ML VIAL IV SCH ×2 (09:23→20:44)
[2017-08-21] MEDS: AZITHROMYCIN 500MG/NS 250 ML 250 ML IV SCH (10:00)
[2017-08-21] MEDS: CEFTRIAXONE SOD 1 GM VIAL IV SCH ×2 (12:10→23:40)
[2017-08-21] MEDS: SPIRONOLACTONE 25 MG TAB PO SCH (13:13)
--- NOTE | 2017-08-21 14:19 | Progress Note ---
DATE: August 21, 2017 PULMONARY MEDICINE PROGRESS NOTE SUBJECTIVE: Mr. Guerra was seen and examined at the bedside. Has 92% oxygen saturation on 2 L per minute by nasal cannula. Had 2.1 L in and 2.3 L out. The patient did have a bowel movement. Patient remains with octreotide infusion in place, furthermore on IV q.12 h. proton pump inhibitor. No clinical GI bleeding. REVIEW OF SYSTEMS: No headaches, no nosebleed. OBJECTIVE VITAL SIGNS: Afebrile. Vital signs noted per the electronic record. GENERAL: No acute distress, alert and calm in bed. HEENT: Normocephalic and atraumatic. NECK: Supple. Throat midline. LUNGS: Bilateral air entry. Rare rhonchi. CARDIOVASCULAR: S1 and S2. No murmurs, rubs, or gallops. ABDOMEN: Soft and nontender. EXTREMITIES: No clubbing. No cyanosis. There is no edema. INTEGUMENT: No rash or purpura. LABS: 11 white count, 31 hematocrit, 116 platelets, 3.7 potassium, 0.8 creatinine, calcium 7.1, albumin 2.0. Chest x-ray with no interval change. Stable and diffuse bilateral air space opacities. IMPRESSION AND PLAN 1. Acute respiratory failure, resolved. 2. Abnormal chest radiography, bilateral pneumonitis. 3. Admit for additional critical anemia, gastrointestinal bleed. 4. Additional fluid overload component. 5. Esophageal varices, portal hypertension, although no recent bleeding or stigmata of hemorrhage per esophagogastroduodenoscopy. 6. History of cirrhosis and hepatitis C. At this time, we will continue to follow closely. Keep the patient on low doses of Lasix, currently at 40 mg of Lasix each day. Low dose of Aldactone will be added as well. The patient remains on IV antibiotics. Sputum cultures came back unremarkable. Continue treatment for possible Klebsiella urinary tract infection. Patient remains weak and will be given physical therapy today. Continue close followup. Job#: [id number]
[2017-08-21] MEDS ORDERED: CALCIUM GLUCONATE 10% INJ 13.95 MEQ in SODIUM CHLORIDE 0.9% 100 ML 100 ML IV ONE (15:00)
[2017-08-21] MEDS: CALCIUM CARBONATE 500 MG CHEWABLE TABS PO SCH (17:00)
[2017-08-22] VITALS (8 sets, daily range): BP systolic 98–108; BP diastolic 54–68
[2017-08-22] MEDS: OCTREOTIDE ACETATE 500 MCG in SODIUM CHLORIDE 0.9% 250ML 250 ML IV SCH (03:16)
[2017-08-22 06:51] LABS: BASOPHILS # (AUTO) 0.1 (0.0-0.1); BASOPHILS % 0.6 % (0.0-1.0); EOSINOPHILS # (AUTO) 0.7 (0.0-0.4); EOSINOPHILS % 7.1 % (0.0-6.0); HEMATOCRIT 30.2 % (38.2-49.6); HEMOGLOBIN 9.1 g/dL (14.0-18.0); LYMPHOCYTES # (AUTO) 1.2 (1.0-3.2); MEAN CORPUSCULAR HEMOGLOBIN 22.1 pg (28-32); MEAN CORPUSCULAR HGB CONC 30.1 g/dL (31-35); MEAN CORPUSCULAR VOLUME 73.3 fL (81-99); MONOCYTES # (AUTO) 1.3 (0.2-0.8); MONOCYTES % 12.5 % (4.4-11.3); NEUTROPHILS # (AUTO) 6.9 (2.1-6.9); NEUTROPHILS % 66.9 % (38.7-80.0); PLATELET COUNT 116 x10e3/uL (140-360); RED BLOOD COUNT 4.12 x10e6/uL (4.3-5.7); RED CELL DISTRIBUTION WIDTH 28.6 % (11.7-14.4)
[2017-08-22 07:12] LABS: ANION GAP 8.9 mmol/L (8-16); BLOOD UREA NITROGEN 12 mg/dL (7-26); BUN/CREATININE RATIO 15 (6-25); CALCIUM 7.5 mg/dL (8.4-10.2); CARBON DIOXIDE 25 mmol/L (22-29); CHLORIDE 105 mmol/L (98-107); CREATININE, SERUM 0.78 mg/dL (0.72-1.25); EST GLOMERULAR FILTRATION RATE > 60 ML/MIN (60-); GLUCOSE 99 mg/dL (74-118); MAGNESIUM 1.6 MG/DL (1.3-2.1); POTASSIUM 3.9 mmol/L (3.5-5.1); SODIUM 135 mmol/L (136-145)
--- NOTE | 2017-08-22 07:50 | Diagnostic Imaging Report ---
PROCEDURE: A single AP view of the chest. COMPARISON: Portable chest 08/21/2017. INDICATIONS: SHORTNESS OF BREATH. CHF. POST EXTUBATION FINDINGS: Lines/tubes: Right internal jugular temporary central venous catheter with tip projecting over the expected region of the superior vena cava. Lungs: Bilateral multifocal airspace opacities. No parenchymal mass. Pleura: There is no pleural effusion or pneumothorax. Heart and mediastinum: The heart and the mediastinum are unremarkable. Bones: No acute bony abnormality. Degenerative changes of the thoracic spine. IMPRESSION: Bilateral multifocal airspace opacities may represent a developing pneumonia. Dictated by: Sudeep Hinson M.D. on 08/22/2017 at 8:00 Electronically approved by: Sudeep Hinson M.D. on 08/22/2017 at 8:00
[2017-08-22] MEDS: CALCIUM CARBONATE 500 MG CHEWABLE TABS PO SCH ×2 (09:34→17:35)
[2017-08-22] MEDS: FUROSEMIDE INJ 10 MG/ML 4 ML VIAL IV SCH (09:34)
[2017-08-22] MEDS: PANTOPRAZOLE 40 MG 10ML VIAL IV SCH ×2 (09:34→20:55)
[2017-08-22] MEDS: SPIRONOLACTONE 25 MG TAB PO SCH (09:34)
--- NOTE | 2017-08-22 10:23 | Progress Note ---
DATE: August 22, 2017 PULMONARY MEDICINE PROGRESS NOTE SUBJECTIVE: Mr. Guerra was seen and examined at bedside. Patient continues with slow progress. Spontaneously breathing without any distress. Intermittent cough still noted. Patient without any new respiratory distress episodes. REVIEW OF SYSTEMS: No headaches. No rash. OBJECTIVE VITAL SIGNS: Noted per electronic record. GENERAL: No acute distress. Alert and calm. HEENT: Normocephalic and atraumatic. NECK: Supple. Throat midline. LUNGS: Bilateral air entry. Few rhonchi. CARDIOVASCULAR: S1 and S2. No murmurs, rubs or gallops. ABDOMEN: Soft and nontender. EXTREMITIES: No clubbing. No cyanosis. There is only trace to 1+ edema. INTEGUMENT: No rash. No purpura. LABS: Sodium 135, potassium 3.9, creatinine 0.8. White count 10, hematocrit 30 and 116,000 platelets. IMPRESSION AND PLAN 1. Acute respiratory failure, resolving. 2. Bilateral pneumonitis. 3. Fluid overload. 4. Early anasarca, much improved. 5. Admit with additional severe anemia and gastrointestinal blood loss. Continue to wean off the oxygen. Follow up closely. Continue antibiotics for infection. Patient will also have steady mobilization as much as he can tolerate. Diuretics still ongoing, including Aldactone plus Lasix. Will follow up closely. Job#: [id number] GOLD
[2017-08-22] MEDS: POTASSIUM CHLORIDE 20 MEQ TAB CR PO SCH (10:30)
[2017-08-22] MEDS: CEFTRIAXONE SOD 1 GM VIAL IV SCH ×2 (11:30→23:56)
[2017-08-22] MEDS: BENZONATATE 100 MG CAP PO PRN (20:55)
--- NOTE | 2017-08-22 23:53 | Consultation ---
DATE OF CONSULTATION: August 22, 2017 UROLOGY CONSULTATION REASON FOR CONSULTATION: Bleeding from the penis. HISTORY OF PRESENT ILLNESS: Ander Guerra is a 67-year-old man with cirrhosis. He denies previous hematuria, dysuria, urinary tract infections, or urolithiasis. The patient apparently has a urinary tract infection during this admission and today there was severe gross bleeding noted from the patient's penis and urological consultation was sought. Patient denies any previous urological instrumentation, but the bleeding has been significant. The patient denies previous urolithiasis and denies any voiding complaints. PAST MEDICAL/SURGICAL HISTORY 1. Cirrhosis due to chronic hepatitis C that was treated successfully with Harvoni 2 years ago. 2. Status post tonsillectomy. MEDICATIONS: Please refer to the MAR. ALLERGIES: PENICILLIN AND CODEINE. FAMILY HISTORY: Noncontributory to the active urological problems. SOCIAL HISTORY: The patient denies current smoking, drugs, or use of ethanol. The patient did drink rather heavily after his mother . The patient is an artist. REVIEW OF SYSTEMS: Consistent with the above history of present illness and past medical history, otherwise negative for all other systems. PHYSICAL EXAMINATION GENERAL: Chronically ill-appearing man lying in a chair in no apparent distress. VITALS: He is currently afebrile. Vital signs currently stable. ABDOMEN: Soft, nondistended. It is full as one would expect with some degree of ascites, but it is relatively soft and nontender. GENITOURINARY: Testes descended bilaterally. Testes and epididymides bilaterally nontender. Patient has a normal penis. It looks uncircumcised with blood dripping from the meatus. For the remaining physical examination systems, please refer to the admission history and physical on the chart. LABORATORY STUDIES: Urine culture on August 15, 2016, was positive for klebsiella that was almost pansensitive and the patient was on culture-specific antibiotics. Blood cultures were negative. White blood cell count 10,260. It was elevated at 11,[address] the way up to 27,090, but has since normalized. Patient's hemoglobin is 9.1 which has been stable. Platelets are low at 116,000. Patient's sodium is slightly low at 135. His calcium is low is 7.5. There is urine in a next to the bedside that is blood tinged. There is no urologically significant imaging in the computer at this time. ASSESSMENT 1. Gross hematuria. 2. Blood per urethra. 3. Urinary tract infection that has been treated. 4. Severe edema of the lower extremities. 5. Leukocytosis that improved. 6. Thrombocytopenia that is stable. 7. Hypocalcemia. 8. Hyponatremia. 9. Anemia. PLAN: The patient's bleeding is rather significant. I think it is best to perform a cystoscopic examination to see what is bleeding prior to instrumentation blindly. I will the patient in emergent fashion for the morning. Thank you very much for involving us in the care of your patient. Will be happy to follow him along with you as well as an outpatient should his insurance company allow us to do so. Job#: [id number]
[2017-08-23] VITALS (7 sets, daily range): BP systolic 99–118; BP diastolic 63–87
[2017-08-23] MEDS ORDERED: IOPAMIDOL 370 MG/ML 200 ML INFUS..BTL INJ ONE (00:12)
[2017-08-23] MEDS ORDERED: SODIUM CHLORIDE 0.9% 250ML 250 ML ONE ×2 (00:13→12:59)
--- NOTE | 2017-08-23 02:01 | Diagnostic Imaging Report ---
EXAM: CT Abdomen and Pelvis WITHOUT and WITH contrast INDICATION: Acute GI bleeding. COMPARISON: None. TECHNIQUE: Abdomen and pelvis were scanned utilizing a multidetector helical scanner from the lung base to the pubic symphysis before and after administration of IV contrast. Coronal and sagittal reformations were obtained. Routine protocol was performed. Scan was performed when during portal venous phase. IV CONTRAST: 150 mL of Isovue-370 ORAL CONTRAST: None RADIATION DOSE: Total DLP: 1280.75 mGy*cm Estimated effective dose: (DLP x 0.015 x size factor) mSv COMPLICATIONS: None FINDINGS: LINES and TUBES: None. LOWER THORAX: Small bilateral pleural effusions. There are areas of interlobular septae thickening and groundglass opacities in the lung bases HEPATOBILIARY: The liver contour appears nodular No focal hepatic lesions. No biliary ductal dilation. GALLBLADDER: No radio-opaque stones or sludge. No wall thickening. SPLEEN: Mild splenomegaly PANCREAS: No focal masses or ductal dilatation. ADRENALS: No adrenal nodules KIDNEYS/URETERS: Kidneys enhance symmetrically. No hydronephrosis. No cystic or solid mass lesions. No stones. GI TRACT: No abnormal distention, wall thickening, or evidence of bowel obstruction. There are diverticula within the colon without evidence of diverticulitis. Appendix is normal. PELVIC ORGANS/BLADDER: Unremarkable. LYMPH NODES: No lymphadenopathy. VESSELS: Large gastroesophageal varices are present with prominent varix at the gastric mucosa best seen on postcontrast examination series 6, image 35 which might represent the source of bleeding. Multiple splenorenal varices are present. Mild atherosclerotic disease of the thoracoabdominal aorta present. PERITONEUM / RETROPERITONEUM: There is moderate of amount of free fluid in the abdomen and pelvis. BONES: There are mild degenerative changes in the lumbar spine. SOFT TISSUES: There is mild anarsarca. IMPRESSION: 1. Large gastroesophageal and splenorenal shunt secondary to portal hypertension with prominent gastric varix at the submucosal/mucosal most likely the source of GI bleeding. 2. Diverticulosis without evidence of diverticulitis. 3. Cirrhotic liver with evidence of portal hypertension demonstrated by splenomegaly, ascites or pleural effusions and varices Signed by: Dr. Vinay Murray M.D. on 08/23/2017 1:57 AM
[2017-08-23 07:21] LABS: ANION GAP 9.8 mmol/L (8-16); BLOOD UREA NITROGEN 15 mg/dL (7-26); BUN/CREATININE RATIO 18 (6-25); CALCIUM 7.4 mg/dL (8.4-10.2); CARBON DIOXIDE 25 mmol/L (22-29); CHLORIDE 105 mmol/L (98-107); CREATININE, SERUM 0.83 mg/dL (0.72-1.25); EST GLOMERULAR FILTRATION RATE > 60 ML/MIN (60-); GLUCOSE 87 mg/dL (74-118); POTASSIUM 3.8 mmol/L (3.5-5.1); SODIUM 136 mmol/L (136-145)
[2017-08-23] MEDS ORDERED: PNEUMOCOCCAL VACCINE POLYVALENT 23 MCG/0.5 ML VIAL IM ONE (07:30)
[2017-08-23] MEDS ORDERED: INFLUENZA VIRUS VAC SPLIT INJ 0.5 ML SYR IM ONE (07:30)
[2017-08-23 08:34] LABS: BASOPHILS % 0.4 % (0.0-1.0); EOSINOPHILS # (AUTO) 0.6 (0.0-0.4); EOSINOPHILS % 6.2 % (0.0-6.0); HEMATOCRIT 25.4 % (38.2-49.6); LYMPHOCYTES # (AUTO) 1.3 (1.0-3.2); LYMPHOCYTES % 12.5 % (18.0-39.1); MEAN CORPUSCULAR HEMOGLOBIN 22.3 pg (28-32); MEAN CORPUSCULAR HGB CONC 30.7 g/dL (31-35); MEAN CORPUSCULAR VOLUME 72.8 fL (81-99); MONOCYTES # (AUTO) 1.2 (0.2-0.8); MONOCYTES % 12.2 % (4.4-11.3); NEUTROPHILS # (AUTO) 6.8 (2.1-6.9); PLATELET COUNT 118 x10e3/uL (140-360); RED BLOOD COUNT 3.49 x10e6/uL (4.3-5.7)
[2017-08-23 08:39] LABS: HEMOGLOBIN 7.8 g/dL (14.0-18.0)
[2017-08-23] MEDS: FUROSEMIDE INJ 10 MG/ML 4 ML VIAL IV SCH (08:59)
[2017-08-23] MEDS: PANTOPRAZOLE 40 MG 10ML VIAL IV SCH ×2 (08:59→20:33)
[2017-08-23] MEDS: SPIRONOLACTONE 25 MG TAB PO SCH (09:00)
[2017-08-23] MEDS: CALCIUM CARBONATE 500 MG CHEWABLE TABS PO SCH ×2 (09:00→17:19)
[2017-08-23] MEDS ORDERED: SODIUM CHLORIDE 0.9% 250ML 250 ML IV ONE ×2 (09:45→13:45)
[2017-08-23] MEDS ORDERED: BELLADONNA/OPIUM 60 MG SUPP PR ONE (10:41)
[2017-08-23] MEDS ORDERED: IOPAMIDOL 610MG/1ML 300 MG/ML VIAL IV ONE (10:42)
[2017-08-23] MEDS: CEFTRIAXONE SOD 1 GM VIAL IV SCH ×2 (14:10→23:46)
[2017-08-23] MEDS: POTASSIUM CHLORIDE 20 MEQ TAB CR PO SCH (14:10)
[2017-08-23] MEDS ORDERED: MAGNESIUM SULFATE 2GM/50ML 50 ML IV ONE (16:00)
[2017-08-23] MEDS ORDERED: MIDAZOLAM HCL 2 MG/2 ML VIAL ONE (17:46)
[2017-08-23] MEDS ORDERED: FENTANYL CITRATE/PF 100MCG/2 ML INJ ONE (17:46)
[2017-08-23] MEDS ORDERED: SODIUM CHLORIDE 0.9% 50ML 50 ML ONE (17:48)
[2017-08-23] MEDS ORDERED: ONDANSETRON HCL INJ 2 MG/ML VIAL ONE (18:21)
[2017-08-23] MEDS ORDERED: DESFLURANE 240 ML BTL INH ONE (18:21)
[2017-08-23] MEDS ORDERED: DEXAMETHASONE SOD PHOS INJ 4 MG/ML VIAL ONE (18:21)
[2017-08-23] MEDS ORDERED: PROPOFOL IV EMULSION 10 MG/ML 20 ML VIAL ONE (18:21)
[2017-08-23] MEDS ORDERED: LIDOCAINE HCL 2% LOCAL INJ 5 ML SDV VIAL INJ ONE (18:21)
[2017-08-23 18:22] LABS: HEMATOCRIT 30.7 % (38.2-49.6); HEMOGLOBIN 9.4 g/dL (14.0-18.0)
[2017-08-23] MEDS: BENZONATATE 100 MG CAP PO PRN (23:46)
[2017-08-24 02:00] VITALS: BP 99/63
[2017-08-24 06:09] VITALS: BP 110/72
[2017-08-24 06:21] LABS: BASOPHILS % 0.2 % (0.0-1.0); EOSINOPHILS # (AUTO) 0.1 (0.0-0.4); EOSINOPHILS % 0.9 % (0.0-6.0); HEMATOCRIT 28.3 % (38.2-49.6); HEMOGLOBIN 8.6 g/dL (14.0-18.0); LYMPHOCYTES # (AUTO) 1.2 (1.0-3.2); LYMPHOCYTES % 7.5 % (18.0-39.1); MEAN CORPUSCULAR HEMOGLOBIN 22.6 pg (28-32); MEAN CORPUSCULAR HGB CONC 30.4 g/dL (31-35); MEAN CORPUSCULAR VOLUME 74.3 fL (81-99); MONOCYTES # (AUTO) 1.1 (0.2-0.8); MONOCYTES % 7.4 % (4.4-11.3); NEUTROPHILS # (AUTO) 12.8 (2.1-6.9); NEUTROPHILS % 83.3 % (38.7-80.0); PLATELET COUNT 135 x10e3/uL (140-360); RED BLOOD COUNT 3.81 x10e6/uL (4.3-5.7)
[2017-08-24 06:42] LABS: ANION GAP 9.7 mmol/L (8-16); BLOOD UREA NITROGEN 15 mg/dL (7-26); BUN/CREATININE RATIO 21 (6-25); CALCIUM 7.1 mg/dL (8.4-10.2); CARBON DIOXIDE 25 mmol/L (22-29); CHLORIDE 105 mmol/L (98-107); CREATININE, SERUM 0.73 mg/dL (0.72-1.25); EST GLOMERULAR FILTRATION RATE > 60 ML/MIN (60-); GLUCOSE 89 mg/dL (74-118); MAGNESIUM 1.9 MG/DL (1.3-2.1); PHOSPHORUS 1.8 MG/DL (2.3-4.7); POTASSIUM 3.7 mmol/L (3.5-5.1); SODIUM 136 mmol/L (136-145)
--- NOTE | 2017-08-24 06:52 | Diagnostic Imaging Report ---
EXAMINATION: CHEST SINGLE (PORTABLE) INDICATION: Pneumonia COMPARISON: 08/22/2017 FINDINGS: TUBES and LINES: Right IJ central line catheter in good position. LUNGS: Lungs are not well inflated. There are bibasilar atelectasis. There is perihilar interstital opacities, consistent with interstitial edema. PLEURA: No pleural effusion or pneumothorax. HEART AND MEDIASTINUM: Cardiac size is mildly enlarged. There are atherosclerotic calcifications within the aorta. BONES AND SOFT TISSUES: No acute osseous lesion. Soft tissues are unremarkable. UPPER ABDOMEN: No free air under the diaphragm. IMPRESSION: Findings are compatible with multifocal infection versus pulmonary edema. These findings have not changed since prior examination Signed by: Dr. Vinay Murray M.D. on 08/24/2017 6:48 AM
[2017-08-24 07:13] LABS: ANISOCYTOSIS MODERATE; EOSINOPHILS % (MANUAL) 1 % (0-7); LYMPHOCYTES % (MANUAL) 8 % (19-48); MONOCYTES % (MANUAL) 5 % (3.4-9.0); NEUTROPHILS % (MANUAL) 86 % (40-74)
[2017-08-24 07:15] LABS: PLATELET ESTIMATE SLIGHTLY DECREASED; RBC MORPHOLOGY COMMENT ABNORMAL
[2017-08-24 07:16] LABS: HYPOCHROMASIA MODERATE; PLATELET MORPHOLOGY COMMENT FEW GIANT
[2017-08-24 07:17] LABS: POIKILOCYTOSIS MODERATE
[2017-08-24 07:18] LABS: TARGET CELLS FEW
[2017-08-24 08:00] VITALS: BP 104/62
[2017-08-24] MEDS: SPIRONOLACTONE 25 MG TAB PO SCH (09:00)
[2017-08-24] MEDS: POTASSIUM CHLORIDE 20 MEQ TAB CR PO SCH (09:49)
[2017-08-24] MEDS: FUROSEMIDE INJ 10 MG/ML 4 ML VIAL IV SCH (09:49)
[2017-08-24] MEDS: CALCIUM CARBONATE 500 MG CHEWABLE TABS PO SCH ×2 (09:49→16:02)
[2017-08-24] MEDS: PANTOPRAZOLE 40 MG 10ML VIAL IV SCH ×2 (09:49→21:38)
[2017-08-24] MEDS: CEFTRIAXONE SOD 1 GM VIAL IV SCH ×2 (09:49→23:45)
[2017-08-24 11:39] VITALS: BP 97/57
[2017-08-24] MEDS: BENZONATATE 100 MG CAP PO PRN (13:30)
[2017-08-24 16:04] VITALS: BP 104/64
[2017-08-24 20:00] VITALS: BP 102/56
[2017-08-25] VITALS (9 sets, daily range): BP systolic 93–111; BP diastolic 51–62
[2017-08-25 06:01] LABS: BASOPHILS # (AUTO) 0.1 (0.0-0.1); BASOPHILS % 0.6 % (0.0-1.0); EOSINOPHILS # (AUTO) 0.6 (0.0-0.4); EOSINOPHILS % 5.7 % (0.0-6.0); HEMATOCRIT 28.2 % (38.2-49.6); HEMOGLOBIN 8.8 g/dL (14.0-18.0); LYMPHOCYTES # (AUTO) 1.5 (1.0-3.2); LYMPHOCYTES % 14.6 % (18.0-39.1); MEAN CORPUSCULAR HEMOGLOBIN 23.3 pg (28-32); MEAN CORPUSCULAR HGB CONC 31.2 g/dL (31-35); MEAN CORPUSCULAR VOLUME 74.6 fL (81-99); MONOCYTES # (AUTO) 1.5 (0.2-0.8); MONOCYTES % 14.1 % (4.4-11.3); NEUTROPHILS # (AUTO) 6.7 (2.1-6.9); NEUTROPHILS % 64.2 % (38.7-80.0); PLATELET COUNT 150 x10e3/uL (140-360); RED BLOOD COUNT 3.78 x10e6/uL (4.3-5.7)
[2017-08-25 06:14] LABS: ANION GAP 8.4 mmol/L (8-16); BLOOD UREA NITROGEN 15 mg/dL (7-26); BUN/CREATININE RATIO 20 (6-25); CALCIUM 7.1 mg/dL (8.4-10.2); CARBON DIOXIDE 25 mmol/L (22-29); CHLORIDE 106 mmol/L (98-107); CREATININE, SERUM 0.76 mg/dL (0.72-1.25); EST GLOMERULAR FILTRATION RATE > 60 ML/MIN (60-); GLUCOSE 88 mg/dL (74-118); MAGNESIUM 1.6 MG/DL (1.3-2.1); PHOSPHORUS 1.9 MG/DL (2.3-4.7); POTASSIUM 3.4 mmol/L (3.5-5.1); SODIUM 136 mmol/L (136-145)
[2017-08-25 08:09] LABS: EOSINOPHILS % (MANUAL) 7 % (0-7); LYMPHOCYTES % (MANUAL) 8 % (19-48); MONOCYTES % (MANUAL) 6 % (3.4-9.0); NEUTROPHILS % (MANUAL) 75 % (40-74)
[2017-08-25 08:11] LABS: TARGET CELLS FEW
[2017-08-25 08:12] LABS: HYPOCHROMASIA MODERATE; POIKILOCYTOSIS SLIGHT
[2017-08-25 08:13] LABS: ANISOCYTOSIS MODERATE; PLATELET ESTIMATE SLIGHTLY DECREASED; PLATELET MORPHOLOGY COMMENT FEW LARGE; RBC MORPHOLOGY COMMENT ABNORMAL
[2017-08-25] MEDS: SPIRONOLACTONE 25 MG TAB PO SCH (09:00)
[2017-08-25] MEDS: PANTOPRAZOLE 40 MG 10ML VIAL IV SCH ×2 (09:17→20:39)
[2017-08-25] MEDS: FUROSEMIDE INJ 10 MG/ML 4 ML VIAL IV SCH (09:17)
[2017-08-25] MEDS: POTASSIUM CHLORIDE 20 MEQ TAB CR PO SCH (09:18)
[2017-08-25] MEDS: CALCIUM CARBONATE 500 MG CHEWABLE TABS PO SCH ×2 (09:18→17:32)
[2017-08-25] MEDS: CEFTRIAXONE SOD 1 GM VIAL IV SCH (12:08)
[2017-08-25] MEDS ORDERED: POTASSIUM CHLORIDE 20 MEQ TAB CR PO NR (13:00)
[2017-08-25] MEDS: BENZONATATE 100 MG CAP PO PRN (20:39)
[2017-08-25] MEDS ORDERED: CALCIUM GLUCONATE 10% INJ 4.65 MEQ in SODIUM CHLORIDE 0.9% 50ML 50 ML IV ONE (22:00)
[2017-08-25] MEDS ORDERED: MAGNESIUM SULFATE 2GM/50ML 50 ML IV ONE (22:00)
[2017-08-25] MEDS ORDERED: POTASSIUM PHOSPHATE 20 MM in SODIUM CHLORIDE 0.9% 250ML 250 ML IV SCH (22:00)
[2017-08-26] VITALS (7 sets, daily range): BP systolic 98–112; BP diastolic 51–67
[2017-08-26] MEDS ORDERED: CALCIUM GLUCONATE 10% INJ 0.465 MEQ/ML VIAL ONE (00:56)
[2017-08-26] MEDS ORDERED: SODIUM CHLORIDE 0.9% 50ML 50 ML ONE (01:01)
[2017-08-26 07:13] LABS: BASOPHILS # (AUTO) 0.1 (0.0-0.1); BASOPHILS % 0.7 % (0.0-1.0); EOSINOPHILS # (AUTO) 0.6 (0.0-0.4); EOSINOPHILS % 7.1 % (0.0-6.0); HEMATOCRIT 27.3 % (38.2-49.6); HEMOGLOBIN 8.5 g/dL (14.0-18.0); LYMPHOCYTES # (AUTO) 1.3 (1.0-3.2); LYMPHOCYTES % 14.6 % (18.0-39.1); MEAN CORPUSCULAR HEMOGLOBIN 23.2 pg (28-32); MEAN CORPUSCULAR HGB CONC 31.1 g/dL (31-35); MEAN CORPUSCULAR VOLUME 74.6 fL (81-99); MONOCYTES # (AUTO) 1.3 (0.2-0.8); MONOCYTES % 14.9 % (4.4-11.3); NEUTROPHILS # (AUTO) 5.5 (2.1-6.9); NEUTROPHILS % 62.1 % (38.7-80.0); PLATELET COUNT 147 x10e3/uL (140-360); RED BLOOD COUNT 3.66 x10e6/uL (4.3-5.7)
[2017-08-26 07:19] LABS: CALCIUM IONIZED 1.1 mmol/L (1.09-1.30)
--- NOTE | 2017-08-26 07:21 | Diagnostic Imaging Report ---
Examination: Single AP view of the chest. COMPARISON: August 24, 2017 INDICATION: Pneumonia DISCUSSION: Lines/tubes: Right IJ catheter with tip overlying the superior vena cava. Lungs: Multifocal interstitial and alveolar opacities. Pleura: There is no pleural effusion or pneumothorax. Heart and mediastinum: Prominent heart size. Bones and soft tissues: No acute bony abnormalities. IMPRESSION: Stable interstitial and alveolar opacities. Signed by: Dr. Wilfred Crain M.D. on 08/26/2017 7:18 AM
[2017-08-26 07:44] LABS: ANION GAP 8.5 mmol/L (8-16); BLOOD UREA NITROGEN 14 mg/dL (7-26); BUN/CREATININE RATIO 19 (6-25); CALCIUM 7.3 mg/dL (8.4-10.2); CARBON DIOXIDE 25 mmol/L (22-29); CHLORIDE 108 mmol/L (98-107); CREATININE, SERUM 0.74 mg/dL (0.72-1.25); EST GLOMERULAR FILTRATION RATE > 60 ML/MIN (60-); GLUCOSE 70 mg/dL (74-118); MAGNESIUM 1.9 MG/DL (1.3-2.1); PHOSPHORUS 2.5 MG/DL (2.3-4.7); POTASSIUM 3.5 mmol/L (3.5-5.1); SODIUM 138 mmol/L (136-145)
[2017-08-26 08:50] LABS: ANISOCYTOSIS MODERATE; HYPOCHROMASIA MODERATE; MICROCYTOSIS MODERATE; PLATELET ESTIMATE ADEQUATE; PLATELET MORPHOLOGY COMMENT NORMAL; POIKILOCYTOSIS MODERATE; RBC MORPHOLOGY COMMENT ABNORMAL; TARGET CELLS MODERATE
[2017-08-26] MEDS: CALCIUM CARBONATE 500 MG CHEWABLE TABS PO SCH ×2 (09:00→17:00)
[2017-08-26] MEDS: PANTOPRAZOLE 40 MG 10ML VIAL IV SCH ×2 (09:00→20:16)
[2017-08-26] MEDS: POTASSIUM CHLORIDE 20 MEQ TAB CR PO SCH (09:00)
[2017-08-26] MEDS: SPIRONOLACTONE 25 MG TAB PO SCH (09:00)
[2017-08-26] MEDS: FUROSEMIDE INJ 10 MG/ML 4 ML VIAL IV SCH (09:00)
--- NOTE | 2017-08-26 15:55 | Progress Note ---
DATE: August 26, 2017 PULMONARY MEDICINE PROGRESS NOTE SUBJECTIVE: Mr. Guerra was seen and examined at bedside. Chest x-ray shows bilateral large lung infiltrates. He continues to be able to walk. No significant dizziness. Marin is in place. No hematuria, though. REVIEW OF SYSTEMS: No headaches. No rash. OBJECTIVE VITAL SIGNS: Afebrile. Vital signs noted per electronic record. GENERAL: No acute distress. Alert and calm. HEENT: Normocephalic and atraumatic. NECK: Supple. Throat midline. LUNGS: Bilateral air entry. A few rhonchi. CARDIOVASCULAR: S1 and S2. No murmurs, rubs or gallops. ABDOMEN: Soft and nontender. EXTREMITIES: No clubbing. No cyanosis. No edema. INTEGUMENT: No rash. No purpura. LABS: Include 2.5 potassium, 0.7 creatinine, 8.8 white count, 27 hematocrit. IMPRESSION AND PLAN 1. Bilateral large pneumonitis. 2. Cirrhosis. 3. Gastrointestinal bleed. 4. Acute respiratory failure, resolved. The patient will be assessed for discharge either today or tomorrow. Continue ambulating to get him stronger. Continue antibiotics while he is here. Diuretics will be ongoing. Patient is slowly improving. He needs to follow up in pulmonary outpatient clinic given his very severe and complicated pneumonia. Job#: [id number] ALEKS
[2017-08-27] VITALS (7 sets, daily range): BP systolic 107–118; BP diastolic 55–67
[2017-08-27] MEDS: BENZONATATE 100 MG CAP PO PRN ×2 (06:31→20:58)
[2017-08-27 07:08] LABS: BASOPHILS # (AUTO) 0.1 (0.0-0.1); BASOPHILS % 0.7 % (0.0-1.0); EOSINOPHILS # (AUTO) 0.9 (0.0-0.4); EOSINOPHILS % 12.4 % (0.0-6.0); HEMATOCRIT 28.6 % (38.2-49.6); HEMOGLOBIN 8.9 g/dL (14.0-18.0); LYMPHOCYTES # (AUTO) 1.3 (1.0-3.2); LYMPHOCYTES % 17.4 % (18.0-39.1); MEAN CORPUSCULAR HEMOGLOBIN 23.3 pg (28-32); MEAN CORPUSCULAR HGB CONC 31.1 g/dL (31-35); MEAN CORPUSCULAR VOLUME 74.9 fL (81-99); MONOCYTES # (AUTO) 0.9 (0.2-0.8); MONOCYTES % 12.6 % (4.4-11.3); NEUTROPHILS # (AUTO) 4.2 (2.1-6.9); NEUTROPHILS % 56.4 % (38.7-80.0); PLATELET COUNT 141 x10e3/uL (140-360); RED BLOOD COUNT 3.82 x10e6/uL (4.3-5.7)
[2017-08-27 07:27] LABS: ANION GAP 8.8 mmol/L (8-16); BLOOD UREA NITROGEN 13 mg/dL (7-26); BUN/CREATININE RATIO 20 (6-25); CALCIUM 7.3 mg/dL (8.4-10.2); CARBON DIOXIDE 23 mmol/L (22-29); CHLORIDE 106 mmol/L (98-107); CREATININE, SERUM 0.64 mg/dL (0.72-1.25); EST GLOMERULAR FILTRATION RATE > 60 ML/MIN (60-); GLUCOSE 79 mg/dL (74-118); MAGNESIUM 1.7 MG/DL (1.3-2.1); PHOSPHORUS 2.7 MG/DL (2.3-4.7); POTASSIUM 3.8 mmol/L (3.5-5.1); SODIUM 134 mmol/L (136-145)
[2017-08-27] MEDS: SPIRONOLACTONE 25 MG TAB PO SCH (09:00)
[2017-08-27] MEDS: PANTOPRAZOLE 40 MG 10ML VIAL IV SCH ×2 (09:00→20:58)
[2017-08-27] MEDS: FUROSEMIDE INJ 10 MG/ML 4 ML VIAL IV SCH (09:00)
[2017-08-27] MEDS: POTASSIUM CHLORIDE 20 MEQ TAB CR PO SCH (09:00)
[2017-08-27] MEDS: CALCIUM CARBONATE 500 MG CHEWABLE TABS PO SCH ×2 (09:00→17:00)
[2017-08-27 10:43] LABS: EOSINOPHILS % (MANUAL) 16 % (0-7); LYMPHOCYTES % (MANUAL) 11 % (19-48); MONOCYTES % (MANUAL) 10 % (3.4-9.0); NEUTROPHILS % (MANUAL) 63 % (40-74)
[2017-08-27 10:44] LABS: RBC MORPHOLOGY COMMENT ABNORMAL
[2017-08-27 10:45] LABS: ANISOCYTOSIS MARKED; MICROCYTOSIS SLIG; PLATELET ESTIMATE ADEQUATE; PLATELET MORPHOLOGY COMMENT NORMAL; POLYCHROMASIA FEW
[2017-08-27] MEDS ORDERED: SODIUM CHLORIDE 0.9% 50ML 50 ML ONE (11:45)
--- NOTE | 2017-08-27 13:57 | Progress Note ---
DATE: August 27, 2017 PULMONARY MEDICINE PROGRESS NOTE SUBJECTIVE: Mr. Guerra was seen and examined at bedside. He continues with slow strengthening. Has 96% oxygen saturation on room air FiO2. Had 2.4 L in and 2.2 L out. Patient did have a bowel movement recorded. Patient overall tolerating his diet well. REVIEW OF SYSTEMS: No double vision. No headaches. OBJECTIVE VITAL SIGNS: Afebrile. Vital signs noted per electronic record. GENERAL: No acute distress. HEENT: Normocephalic and atraumatic. NECK: Supple. Throat midline. LUNGS: Bilateral air entry. A few rhonchi. Mostly clear appearing. CARDIOVASCULAR: S1 and S2. No murmurs, rubs or gallops. ABDOMEN: Soft and nontender. EXTREMITIES: No clubbing. No cyanosis. There is no significant edema. INTEGUMENT: No rash. No purpura. LABS: 7.5 white count, 29 hematocrit, 141 platelets, 2.8 potassium, 13 BUN, 0.7 creatinine, calcium 7.3, magnesium 1.7, phosphorus 2.7. IMPRESSION AND PLAN 1. Acute respiratory failure, resolved. 2. Severe large pneumonia. 3. Gastrointestinal bleed, possibly due to portal hypertension versus other source. During esophagogastroduodenoscopy, there was no direct stigmata of recent bleeding. 4. Fluid overload, much improved. 5. Weakness, improved. At this time, the patient will need to continue PT and OT. Continue diuretics, making him slightly dry. Intermittent electrolytes will need to be checked. Patient will have slight decrease of Aldactone due to the falling sodium. Antibiotics were given, and then they were stopped. We need to ensure the patient has chest x-ray followup until resolution. If it does not, he will need a CAT scan to assess the lungs for parenchymal disease, especially given the severity of his initial CAT scan. Will follow along closely. Job#: [id number]
[2017-08-28 00:30] VITALS: BP 117/65
[2017-08-28 06:22] VITALS: BP 113/57
[2017-08-28 07:40] VITALS: BP 107/69
[2017-08-28] MEDS: FUROSEMIDE INJ 10 MG/ML 4 ML VIAL IV SCH (08:38)
[2017-08-28] MEDS: SPIRONOLACTONE 25 MG TAB PO SCH (08:38)
[2017-08-28] MEDS: PANTOPRAZOLE 40 MG 10ML VIAL IV SCH ×2 (08:38→21:01)
[2017-08-28] MEDS: CALCIUM CARBONATE 500 MG CHEWABLE TABS PO SCH ×2 (08:39→16:24)
[2017-08-28] MEDS: POTASSIUM CHLORIDE 20 MEQ TAB CR PO SCH (08:39)
[2017-08-28 11:29] VITALS: BP 101/66
--- NOTE | 2017-08-28 13:36 | Progress Note ---
DATE: OBJECTIVE VITAL SIGNS: Afebrile. Vital signs noted per electronic record. GENERAL: No acute distress. Alert and calm. HEENT: Normocephalic, atraumatic. NECK: Supple. Throat midline. LUNGS: Bilateral air entry, few rhonchi CARDIOVASCULAR: S1, S2. No murmurs, rubs or gallops. ABDOMEN: Soft and nontender. EXTREMITIES: No clubbing or cyanosis. No edema. INTEGUMENT: No rash. No purpura. LABS: White count 7.5, hematocrit 29, platelets 141, eosinophil 16% on blood today. Sodium 134, potassium 3.8. IMPRESSION AND PLAN 1. Severe pneumonia. 2. Hypoxemia, continued. 3. Weakness, improved. 4. Severe anemia and presumed acute gastrointestinal bleed. 5. Portal hypertension without definite stigmata of acute bleeding on esophagogastroduodenoscopy. 6. . Job#: [id number] PATRICK
[2017-08-28 16:05] VITALS: BP 106/61
[2017-08-28 20:00] VITALS: BP 100/63
[2017-08-29] VITALS: BP 95/54
[2017-08-29 00:33] VITALS: BP 100/63
[2017-08-29 04:00] VITALS: BP 99/56
[2017-08-29 06:50] LABS: ANION GAP 7.7 mmol/L (8-16); BLOOD UREA NITROGEN 13 mg/dL (7-26); BUN/CREATININE RATIO 18 (6-25); CALCIUM 7.3 mg/dL (8.4-10.2); CARBON DIOXIDE 24 mmol/L (22-29); CHLORIDE 107 mmol/L (98-107); CREATININE, SERUM 0.72 mg/dL (0.72-1.25); EST GLOMERULAR FILTRATION RATE > 60 ML/MIN (60-); GLUCOSE 141 mg/dL (74-118); MAGNESIUM 1.6 MG/DL (1.3-2.1); POTASSIUM 3.7 mmol/L (3.5-5.1); SODIUM 135 mmol/L (136-145)
[2017-08-29 07:39] VITALS: BP 105/72
[2017-08-29 07:45] VITALS: BP 105/72
[2017-08-29] MEDS: CALCIUM CARBONATE 500 MG CHEWABLE TABS PO SCH (09:00)
[2017-08-29] MEDS: FUROSEMIDE INJ 10 MG/ML 4 ML VIAL IV SCH (09:00)
[2017-08-29] MEDS: SPIRONOLACTONE 25 MG TAB PO SCH (09:00)
[2017-08-29] MEDS: PANTOPRAZOLE 40 MG 10ML VIAL IV SCH (09:00)
[2017-08-29] MEDS: POTASSIUM CHLORIDE 20 MEQ TAB CR PO SCH (09:00)
[2017-08-29] MEDS ORDERED: TYLENOL WITH C1 EACH PO (09:33)
[2017-08-29] MEDS ORDERED: ZOFRAN ODT4 MG PO (09:34)
[2017-08-29] MEDS ORDERED: CIPRO500 MG PO (09:34)
--- NOTE | 2017-08-29 10:23 | Progress Note ---
DATE: August 29, 2017 PULMONARY MEDICINE PROGRESS NOTE SUBJECTIVE: Mr. Guerra was seen and examined at bedside. He remains slowly improving. Oxygen saturation 96% on 2 L per minute FIO2. Patient walks without dizziness. In 1.2 L and 3.7 L out. Bowel movements daily without any bleeding from the GI tract. Paperwork performed last evening regarding oxygen. REVIEW OF SYSTEMS: No bleeding. No rash. OBJECTIVE VITALS: Afebrile. Vital signs noted per electronic record. GENERAL: In no acute distress. Alert and calm. HEENT: Normocephalic and atraumatic. NECK: Supple. Throat midline. LUNGS: Bilateral air entry. Slightly decreased breath sounds. Rare rhonchi. CARDIOVASCULAR: S1 and S2. No murmurs, rubs or gallops. ABDOMEN: Soft and nontender. EXTREMITIES: No clubbing. No cyanosis. There is no edema. INTEGUMENT: No rash. No purpura. LABS: Sodium 135, potassium 3.7, BUN 13, creatinine 0.7. IMPRESSION AND PLAN 1. Severe pneumonia. 2. Additional fluid overload. 3. Electrolyte abnormalities, improving. 4. Severe anemia on admit and presumably some gastrointestinal bleed. Acute esophagogastroduodenoscopy without stigmata of acute bleeding, but more portal hypertension evidence noted. Continue training with the Marin. Home oxygen to be delivered. Continue to mobilize the patient. P.o. diet. Possible discharge today if he continues to improve. Job#: [id number] GOLD
[2017-08-29 11:48] VITALS: BP 102/68
[2017-08-29] MEDS ORDERED: INFLUENZA VIRUS VAC SPLIT INJ 0.5 ML SYR IM NR (15:00)
[2017-09-01] MEDS ORDERED: PNEUMOCOCCAL VACCINE POLYVALENT 23 MCG/0.5 ML VIAL IM NR (14:15)
[2017-09-01] MEDS ORDERED: INFLUENZA VIRUS VAC SPLIT INJ 0.5 ML SYR IM NR (14:15)
== END 2017-08-29 15:16 | disposition home health service (06) | DRG 871 ==
LOC: ER 17:18 → ERHOLD 23:20 → ICU 08-16 19:24 → MED/SURG3 08-20 17:07
PROVIDERS: ADMIT Internal Medicine; ATTEND Internal Medicine
PROC: 5A1945Z Respiratory Ventilation, 24-96 Consecutive Hours (ICD-10-PCS; 2017-08-15)
PROC: 30250N1 (ICD-10-PCS; 2017-08-15)
PROC: 0BH17EZ Insertion of Endotracheal Airway into Trachea, Via Natural or Artificial Opening (ICD-10-PCS; 2017-08-15)
PROC: 0DJ08ZZ Inspection of Upper Intestinal Tract, Via Natural or Artificial Opening Endoscopic (ICD-10-PCS; 2017-08-17)
PROC: 30250K1 (ICD-10-PCS; principal; 2017-08-21)
PROC: BT1B1ZZ Fluoroscopy of Bladder and Urethra using Low Osmolar Contrast (ICD-10-PCS; 2017-08-23)
DX: A41.9 Sepsis, unspecified organism (principal); J18.9 Pneumonia, unspecified organism; J96.90 Respiratory failure, unspecified, unspecified whether with hypoxia or hypercapnia; I50.33 Acute on chronic diastolic (congestive) heart failure; J81.0 Acute pulmonary edema; D68.4 Acquired coagulation factor deficiency; I85.10 Secondary esophageal varices without bleeding; N39.0 Urinary tract infection, site not specified; K76.6 Portal hypertension; E87.1 Hypo-osmolality and hyponatremia; D62 Acute posthemorrhagic anemia; R65.20 Severe sepsis without septic shock; K74.60 Unspecified cirrhosis of liver; K31.89 Other diseases of stomach and duodenum; B18.2 Chronic viral hepatitis C; D69.59 Other secondary thrombocytopenia; E83.51 Hypocalcemia; Z23 Encounter for immunization; E87.6 Hypokalemia; I11.0 Hypertensive heart disease with heart failure; B96.1 Klebsiella pneumoniae [K. pneumoniae] as the cause of diseases classified elsewhere; E83.39 Other disorders of phosphorus metabolism; E83.42 Hypomagnesemia
CPT/HCPCS: 31500; 36415; 36430; 36555; 36600; 43235; 71045; 71260; 74018; 74178; 74420; 76700; 80048; 80053; 80076; 81001; 82140; 82330; 82550; 82553; 82805; 83605; 83690; 83735; 83880; 84100; 84443; 84484; 85014; 85018; 85025; 85379; 85610; 85730; 86078; 86850; 86900; 86920; 87040; 87070; 87086; 87186; 87205; 87400; 90732; 93005; 93306; 94002; 94003; 94640; 94660; 96367; 96374; 96375; 96376; 99285; J0330; J0456; J0610; J0696; J1100; J1200; J1940; J2001; J2250; J2353; J2354; J2405; J2930; J3370; J3430; J3480; J7030; J7040; J7050; J7070; P9016; P9017; Q9967

== ENCOUNTER 2018-02-12 20:44 | Inpatient (IN) | payer MEDICARE ==
[~2018-02-12] VITALS: Ht 175.3 cm; Wt 84.4 kg
[~2018-02-12 20:44] MED LIST: CIPRO500 MG PO; TYLENOL WITH C1 EACH PO; ZOFRAN ODT4 MG PO
[2018-02-12] MEDS ORDERED: LACTULOSE20 GM/30 M PO (20:59)
[2018-02-12] MEDS ORDERED: SPIRONOLACTONE25 MG PO (20:59)
[2018-02-12] MEDS ORDERED: PANTOPRAZOLE SO40 MG PO (20:59)
[2018-02-12] MEDS ORDERED: TAMSULOSIN HCL0.4 MG PO (20:59)
[2018-02-12] MEDS ORDERED: PANTOPRAZOLE 40 MG 10ML VIAL IV ONE (21:15)
[2018-02-12 21:18] LABS: BASOPHILS % 0.4 % (0.0-1.0); EOSINOPHILS % 0.6 % (0.0-6.0); HEMATOCRIT 26.9 % (38.2-49.6); HEMOGLOBIN 8.7 g/dL (14.0-18.0); LYMPHOCYTES # (AUTO) 0.8 (1.0-3.2); LYMPHOCYTES % 16.5 % (18.0-39.1); MEAN CORPUSCULAR HEMOGLOBIN 25.7 pg (28-32); MEAN CORPUSCULAR HGB CONC 32.3 g/dL (31-35); MEAN CORPUSCULAR VOLUME 79.4 fL (81-99); MONOCYTES # (AUTO) 0.8 (0.2-0.8); MONOCYTES % 16.5 % (4.4-11.3); NEUTROPHILS # (AUTO) 3.2 (2.1-6.9); NEUTROPHILS % 65.6 % (38.7-80.0); RED BLOOD COUNT 3.39 x10e6/uL (4.3-5.7); RED CELL DISTRIBUTION WIDTH 22.4 % (11.7-14.4)
[2018-02-12 21:19] LABS: PLATELET COUNT 100 x10e3/uL (140-360)
[2018-02-12 21:26] LABS: INR 1.52; PARTIAL THROMBOPLASTIN TIME 36.3 seconds (23.8-35.5); PROTHROMBIN TIME 17.2 seconds (11.9-14.5)
[2018-02-12 21:36] LABS: ALANINE AMINOTRANSFERASE 38 IU/L (0-55); ALBUMIN 2.9 g/dL (3.5-5.0); ALBUMIN/GLOBULIN RATIO 0.8 (0.8-2.0); ALKALINE PHOSPHATASE 104 IU/L (40-150); ANION GAP 15.5 mmol/L (8-16); BLOOD UREA NITROGEN 15 mg/dL (7-26); BUN/CREATININE RATIO 13 (6-25); CALCIUM 8.5 mg/dL (8.4-10.2); CARBON DIOXIDE 17 mmol/L (22-29); CHLORIDE 110 mmol/L (98-107); CREATINE KINASE 565 IU/L (30-200); CREATININE, SERUM 1.13 mg/dL (0.72-1.25); EST GLOMERULAR FILTRATION RATE > 60 ML/MIN (60-); GLUCOSE 139 mg/dL (74-118); MAGNESIUM 1.9 MG/DL (1.3-2.1); POTASSIUM 3.5 mmol/L (3.5-5.1); SODIUM 139 mmol/L (136-145)
[2018-02-12 21:55] LABS: THYROID STIMULATING HORMONE 5.012 uIU/mL (0.350-4.940)
[2018-02-12] MEDS ORDERED: LIDOCAINE HCL50 ML TOP (21:55)
[2018-02-12] MEDS ORDERED: SODIUM CHLORIDE 0.9% 1000ML 1,000 ML IV STA (22:39)
--- NOTE | 2018-02-12 22:53 | Diagnostic Imaging Report ---
Exam: Head CT without contrast History: Altered mental status Comparison studies: None Technique: Axial images were obtained from the skull base to the vertex. Coronal and sagittal images reconstructed from the axial data. Intravenous contrast: None Findings: Scalp: No abnormalities. Bones: No fractures, blastic or lytic lesions. Brain sulci: Mildly prominent.. Ventricles: Mild compensatory dilatation. No hydrocephalus. Extra-axial spaces: No masses, no fluid collection. Parenchyma: No mass, acute hemorrhage or acute or chronic cortical vascular insults. A few scattered hypodensities in the supratentorial white matter and mildly confluent hypodense changes in the bilateral periatrial periventricular white matter are nonspecific but most compatible with chronic microvascular ischemic changes. Sellar/suprasellar region: No abnormalities. Craniocervical junction: Patent foramen magnum. No Chiari one malformation. Incidental findings: Atherosclerotic calcifications in the carotid siphons. Small bilateral sphenoid sinus retention cysts. IMPRESSION: No acute intracranial abnormalities. Chronic findings: 1. Mild generalized volume loss. 2. Mild microvascular ischemic changes. Signed by: Dr. Daniel Post M.D. on 02/12/2018 10:49 PM
--- NOTE | 2018-02-12 23:02 | Diagnostic Imaging Report ---
CHEST 2 VIEWS, Technique: CHEST 2 VIEWS Comparison: 08/26/2017 Clinical history: Altered mental status, falls DISCUSSION: Right IJ central venous catheter projects over the SVC. Stable mildly enlarged cardiomediastinal silhouette. There are diffuse and patchy bilateral opacities. Question underlying small pleural effusions. Remote right clavicle deformity. IMPRESSION: Bilateral pulmonary opacities, which may reflect edema and/or infection. Recommend short-term follow-up upright PA and lateral to document resolution and exclude underlying chronic lung change. Signed by: Dr Seble Amaya MD on 02/12/2018 10:58 PM
[2018-02-12] MEDS: LEVOFLOXACIN 500MG/D5W 100ML 100 ML IV SCH (23:15)
[2018-02-13] VITALS (11 sets, daily range): BP systolic 101–116; BP diastolic 58–70
[2018-02-13] MEDS ORDERED: PHYTONADIONE 10 MG/ML AMP PO ONE (00:45)
[2018-02-13] MEDS: CEFEPIME HCL 2 GM VIAL IV SCH ×2 (00:49→11:57)
[2018-02-13] MEDS: VANCOMYCIN 1GM/NS 250 ML 250 ML IV SCH ×2 (00:49→08:59)
[2018-02-13 01:25] LABS: BILIRUBIN,URINE NEGATIVE (NEGATIVE); CLARITY,URINE CLEAR (CLEAR); COLOR,URINE YELLOW (YELLOW); KETONES,URINE TRACE (NEGATIVE); LEUKOCYTE ESTERASE ,URINE NEGATIVE (NEGATIVE); NITRITE,URINE NEGATIVE (NEGATIVE); PROTEIN,URINE DIPSTICK TRACE (NEGATIVE); URINE UROBILINOGEN 0.2 mg/dL (0.2 - 1)
[2018-02-13] MEDS ORDERED: LACTULOSE SYRUP 20 GM/30 ML UDC PO SCH (02:00)
[2018-02-13] MEDS: OCTREOTIDE ACETATE 600 MCG in SODIUM CHLORIDE 0.9% 250ML 300 ML IV SCH ×3 (02:22→23:59)
[2018-02-13] MEDS ORDERED: METRONIDAZOLE 500MG/NS 100ML 100 ML IV STA (02:38)
[2018-02-13] MEDS ORDERED: SODIUM CHLORIDE 0.9% 250ML 250 ML ONE ×3 (04:02→16:02)
[2018-02-13] MEDS ORDERED: METRONIDAZOLE 500MG/NS 100ML 100 ML IV SCH (06:00)
[2018-02-13 06:26] LABS: BASOPHILS % 0.3 % (0.0-1.0); EOSINOPHILS # (AUTO) 0.1 (0.0-0.4); HEMATOCRIT 22.6 % (38.2-49.6); HEMOGLOBIN 7.3 g/dL (14.0-18.0); LYMPHOCYTES # (AUTO) 1.2 (1.0-3.2); LYMPHOCYTES % 30.7 % (18.0-39.1); MEAN CORPUSCULAR HEMOGLOBIN 25.5 pg (28-32); MEAN CORPUSCULAR HGB CONC 32.3 g/dL (31-35); MONOCYTES # (AUTO) 0.7 (0.2-0.8); MONOCYTES % 17.8 % (4.4-11.3); NEUTROPHILS # (AUTO) 1.9 (2.1-6.9); NEUTROPHILS % 48.9 % (38.7-80.0); PLATELET COUNT 70 x10e3/uL (140-360); RED BLOOD COUNT 2.86 x10e6/uL (4.3-5.7); RED CELL DISTRIBUTION WIDTH 21.9 % (11.7-14.4)
[2018-02-13 06:54] LABS: CREATINE KINASE MB 4.1 ng/mL (0-5.0)
[2018-02-13] MEDS: SODIUM CHLORIDE 0.9% 1000ML 1,000 ML IV SCH ×3 (07:14→21:01)
[2018-02-13] MEDS: METRONIDAZOLE 500MG/NS 100ML 100 ML IV SCH ×3 (08:01→21:01)
[2018-02-13] MEDS: PANTOPRAZOLE 40 MG 10ML VIAL IV SCH ×2 (08:59→21:01)
[2018-02-13] MEDS: LACTULOSE SYRUP 20 GM/30 ML UDC PO SCH ×3 (08:59→21:01)
[2018-02-13] MEDS: LEVOFLOXACIN 500MG/D5W 100ML 100 ML IV SCH (09:00)
--- NOTE | 2018-02-13 13:55 | History and Physical ---
PRIMARY CARE PHYSICIAN: Dr. Hale at [facility] I am covering for Dr. Waddell. REASON FOR ADMISSION: Confusion. HISTORY OF PRESENT ILLNESS: Mr. Andre Guerra is a 68-year-old male. He has history of cirrhosis of liver and he follows up with GI as outpatient and he also has history of some chronic lung infiltrates. He has pulmonary follow up as outpatient as well. He lives at home with his sister who is the next of kin. Per the sister, last night he was confused. She stated that he has been compliant with his medications and she brought him into the emergency room for evaluation. In the emergency room he had workup done. He was found to have ammonia level of 256. He was started on lactulose. Currently he is a little bit more awake and alert. His friend is at the bedside. He stated that he has quit alcohol about 4 years ago. He also had a hemoglobin as low as 7.3. He is receiving first unit of PRBC. The sister denied any history of bloody stools but his stool guaiac was positive and GI has been consulted as well. His lactic acid was elevated on admission hence the patient has received IV antibiotics. Cultures have been sent. Chest x-ray showed evidence of infiltrates but the patient denies any fever, shortness of breath or any chest pain. REVIEW OF SYSTEMS GENERAL: He is afebrile. Denies any focal weakness. EYES: Denies any blurry vision. ENT: Denies any ear, nose or throat pain or drainage. CARDIOVASCULAR: Denies any chest pain, shortness of breath, palpitations or syncopal episodes. RESPIRATORY: Denies any cough, shortness of breath or sputum production. GI: Denies any nausea, vomiting, abdominal pain or diarrhea. NEURO: He had some confusion that is currently improving. MUSCULOSKELETAL: Denies any joint pain or swelling. PSYCH: Denies any mood changes, suicidal or homicidal ideation. GENITOURINARY: He had urinary retention and he had Marin catheter placed in the emergency room. PAST MEDICAL HISTORY: Includes history of cirrhosis of liver, chronic anemia, thrombocytopenia, history of pulmonary infiltrates. PAST SURGICAL HISTORY: None. SOCIAL HISTORY: He lives at home with his sister. No history of smoking. He quit alcohol use about 4 years ago. No history of drug use. ALLERGIES: PENICILLIN AND CODEINE. FAMILY HISTORY: Mother and father both are . Father had history of cardiac disease and mother had cirrhosis of liver. HOME MEDICATIONS: Reviewed per MAR. PHYSICAL EXAMINATION VITAL SIGNS: At this time, temperature 97.3, heart rate is 69, respirations 15, blood pressure 101/61, SpO2 of 100% on room air. GENERAL: The patient is currently awake, alert and oriented. He is currently not in any acute distress. HEENT: Head is normocephalic, atraumatic. NECK: Supple. No raised JVD. CARDIOVASCULAR: Rate and rhythm regular. LUNGS: Occasional rhonchi noted. GI: Abdomen is soft, nontender. Bowel sounds present. NEURO: Cranial nerves II-XII grossly intact. Power and tone is normal in the bilateral upper and lower extremities. PSYCH: Normal mood and affect. INTEGUMENTARY: No ulcers or rash noted. MUSCULOSKELETAL: No joint swelling or tenderness noted. LABS: CBC--WBC count of 3.94, hemoglobin 7.3, hematocrit 22.6, platelet count 70,000. Chemistry--BMP sodium 139, potassium 3.5, chloride 110, CO2 17, BUN of 15, creatinine 1.13 and blood glucose of 139. CK is 565. Ammonia level was 256. It has trended down to 125. A TSH level is 5.012. ASSESSMENT: A 68-year-old male with 1. Altered mental status and hepatic encephalopathy. 2. Guaiac positive stool with anemia. 3. Urinary retention. 4. Pulmonary infiltrates. 5. Elevated lactic acid on presentation. PLAN: The patient will be admitted to the hospital. Will continue lactulose and will continue empiric antibiotics and will consult pulmonary given the pulmonary infiltrates and given the guaiac positive stool and anemia, GI will be consulted as well and urology was consulted for urinary retention. The patient was started on Flomax. I have discussed with the patient's sister over the phone regarding the plan of care. Code status: Full code. Surrogate decision-maker is his sister. Job#: [id number] MACY Cc: DR HALE AT [facility]
[2018-02-13] MEDS: RIFAXIMIN 550 MG TABLET PO SCH (18:20)
--- NOTE | 2018-02-13 19:35 | Consultation ---
DATE OF CONSULTATION: February 13, 2018 UROLOGY CONSULTATION, INITIAL VISIT ATTENDING PHYSICIAN: Sonya Villarreal MD REASON FOR VISIT: Urinary retention. HISTORY OF PRESENT ILLNESS: This is a 68-year-old patient that was admitted to the hospital through the emergency room. He is complaining about change in mental status and some confusion. He had falls on the day of admission. He states the confusion started several days ago. Usually, he is alert and oriented times 3. He did have similar symptoms in the past. REVIEW OF SYSTEMS: Twelve systems reviewed. CONSTITUTIONAL: No fever. No change in weight. No history of any head injury. ABDOMEN: No nausea. No change in bowel movement. : Presently, he had difficulty and inability to void, requiring placement of a catheter. OTHER: All other 12 systems are negative. PAST MEDICAL HISTORY 1. Cirrhosis. 2. Hepatitis C positive. 3. GERD. 4. BPH. MEDICATIONS: See MAR. FAMILY HISTORY: Negative. SOCIAL HISTORY: Never smoked. No use of alcohol or illicit drugs. PHYSICAL EXAMINATION VITALS: Blood pressure 130/80, pulse 88, temperature 97.8. Respirations 18. GENERAL: The patient is alert and oriented times 1 or 2. HEAD: Symmetric. EYES: Normal movement. NECK: No JVD. No masses. CHEST: Clear. HEART: Regular. ABDOMEN: Soft. No organomegaly. EXTERNAL GENITALIA: No palpable masses. Testes in place, unremarkable. Marin catheter in place. RECTAL: Smooth prostate. LOWER EXTREMITIES: He moves all. No significant edema. LABORATORY DATA: Reviewed. Hemoglobin was 7.3, which is quite low. Creatinine normal. INR 1.52. The rest of the labs reviewed. Creatinine 1.13, BUN 15. Potassium 3.5. Sodium 139, chloride 110, bicarb 17. Hemoglobin 7.3. White count 3.94. Bilirubin 0.7. INR 1.52. DIAGNOSES 1. Urinary retention. 2. Cirrhosis. 3. Altered mental status. 4. Severe anemia. 5. Low potassium. PLAN: Plan to keep the Marin catheter for now. In the future, he will need assessment of his voiding and consider additional steps for the BPH. Thank you. We will follow with you. Job#: [id number]
[2018-02-13] MEDS: TAMSULOSIN HCL 0.4 MG CAP PO SCH (21:01)
[2018-02-13 21:53] LABS: BASOPHILS % 0.5 % (0.0-1.0); EOSINOPHILS # (AUTO) 0.1 (0.0-0.4); EOSINOPHILS % 3.4 % (0.0-6.0); HEMATOCRIT 28.3 % (38.2-49.6); HEMOGLOBIN 9.3 g/dL (14.0-18.0); LYMPHOCYTES # (AUTO) 0.9 (1.0-3.2); LYMPHOCYTES % 22.7 % (18.0-39.1); MEAN CORPUSCULAR HEMOGLOBIN 26.6 pg (28-32); MEAN CORPUSCULAR HGB CONC 32.9 g/dL (31-35); MEAN CORPUSCULAR VOLUME 81.1 fL (81-99); MONOCYTES # (AUTO) 0.8 (0.2-0.8); NEUTROPHILS # (AUTO) 2.2 (2.1-6.9); NEUTROPHILS % 53.2 % (38.7-80.0); RED BLOOD COUNT 3.49 x10e6/uL (4.3-5.7); RED CELL DISTRIBUTION WIDTH 20.3 % (11.7-14.4)
[2018-02-13 21:56] LABS: PLATELET COUNT 64 x10e3/uL (140-360)
[2018-02-13 23:34] LABS: CREATINE KINASE MB 3.5 ng/mL (0-5.0)
[2018-02-14] VITALS (8 sets, daily range): BP systolic 103–131; BP diastolic 62–86
[2018-02-14] MEDS: METRONIDAZOLE 500MG/NS 100ML 100 ML IV SCH ×6 (03:00→21:01)
[2018-02-14] MEDS: SODIUM CHLORIDE 0.9% 1000ML 1,000 ML IV SCH ×2 (04:57→18:07)
[2018-02-14 05:42] LABS: BASOPHILS % 0.5 % (0.0-1.0); EOSINOPHILS # (AUTO) 0.2 (0.0-0.4); EOSINOPHILS % 4.4 % (0.0-6.0); HEMATOCRIT 29.2 % (38.2-49.6); HEMOGLOBIN 9.8 g/dL (14.0-18.0); LYMPHOCYTES # (AUTO) 1.1 (1.0-3.2); LYMPHOCYTES % 27.5 % (18.0-39.1); MEAN CORPUSCULAR HEMOGLOBIN 27.1 pg (28-32); MEAN CORPUSCULAR HGB CONC 33.6 g/dL (31-35); MEAN CORPUSCULAR VOLUME 80.7 fL (81-99); MONOCYTES # (AUTO) 0.7 (0.2-0.8); MONOCYTES % 18.4 % (4.4-11.3); NEUTROPHILS # (AUTO) 1.9 (2.1-6.9); NEUTROPHILS % 48.9 % (38.7-80.0); PLATELET COUNT 68 x10e3/uL (140-360); RED BLOOD COUNT 3.62 x10e6/uL (4.3-5.7); RED CELL DISTRIBUTION WIDTH 20.6 % (11.7-14.4)
[2018-02-14 06:04] LABS: INR 1.68; PARTIAL THROMBOPLASTIN TIME 39.8 seconds (23.8-35.5); PROTHROMBIN TIME 18.6 seconds (11.9-14.5)
[2018-02-14 06:22] LABS: ALANINE AMINOTRANSFERASE 30 IU/L (0-55); ALBUMIN 2.5 g/dL (3.5-5.0); ALBUMIN/GLOBULIN RATIO 0.8 (0.8-2.0); ALKALINE PHOSPHATASE 86 IU/L (40-150); ANION GAP 11.3 mmol/L (8-16); BLOOD UREA NITROGEN 5 mg/dL (7-26); BUN/CREATININE RATIO 6 (6-25); CALCIUM 7.6 mg/dL (8.4-10.2); CARBON DIOXIDE 23 mmol/L (22-29); CHLORIDE 109 mmol/L (98-107); CREATININE, SERUM 0.78 mg/dL (0.72-1.25); EST GLOMERULAR FILTRATION RATE > 60 ML/MIN (60-); GLUCOSE 92 mg/dL (74-118); POTASSIUM 3.3 mmol/L (3.5-5.1); SODIUM 140 mmol/L (136-145)
[2018-02-14] MEDS ORDERED: KCL 20MEQ/.9 SOD CHL 1,000 ML IV ONE (08:15)
--- NOTE | 2018-02-14 08:41 | Progress Note ---
DATE: February 14, 2018 PULMONARY MEDICINE PROGRESS NOTE SUBJECTIVE: Mr. Guerra was seen and examined at bedside. He has no respiratory distress at this time. The patient continues intermittently on supplemental oxygen. No king bleeding is being noted by the patient. GI did see the patient, and workup is underway. REVIEW OF SYSTEMS: No bleeding. No rash. OBJECTIVE VITAL SIGNS: Afebrile, vital signs noted per electronic record. GENERAL: In no acute distress, alert and calm. HEENT: Normocephalic, atraumatic. NECK: Supple. Throat midline. LUNGS: Bilateral air entry, rare rhonchi, mostly clear. CARDIOVASCULAR: S1, S2. No murmurs, rubs, or gallops. ABDOMEN: Soft, nontender. EXTREMITIES: No clubbing, no cyanosis, no edema. INTEGUMENT: No rash, no purpura. LABS: 4 white count, 29 hematocrit, 10 hemoglobin, 5 BUN, 0.8 creatinine, potassium 3.3. IMPRESSION AND PLAN 1. Bilateral persistent lung infiltrates. Improved, however, since August 2017. 2. Hypokalemia. 3. Admit for gastrointestinal blood loss anemia partially. 4. Encephalopathy, uremic plus/minus other, resolved. At this time, will continue to follow the patient during the GI workup. As the pulmonary workup is complex, we will just recheck another x-ray. If the x-ray is stable, we will allow the pulmonary workup to be as outpatient. The patient has to have followup with his mechanical sound technician after he gets out of the hospital who is at [facility]. Will give some potassium replenishment. Today, GI reportedly plans a GI bleed scan. Job#: [id number]
[2018-02-14] MEDS: PANTOPRAZOLE 40 MG 10ML VIAL IV SCH ×2 (09:09→21:01)
[2018-02-14] MEDS: RIFAXIMIN 550 MG TABLET PO SCH ×2 (09:09→17:08)
[2018-02-14] MEDS: LACTULOSE SYRUP 20 GM/30 ML UDC PO SCH ×3 (09:09→21:01)
[2018-02-14] MEDS: LEVOFLOXACIN 500MG/D5W 100ML 100 ML IV SCH (10:00)
--- NOTE | 2018-02-14 10:03 | Consultation ---
DATE OF CONSULTATION: February 13, 2018 PULMONARY MEDICINE CONSULT REFERRING PHYSICIAN: Dr. Villarreal PRIMARY CARE PROVIDER: [facility]. CHIEF COMPLAINT: Lung infiltrates. HISTORY: Mr. Guerra is a pleasant 68-year-old gentleman who presented to [facility] with confusion. Patient presented on February 13, 2018 with confusion. His ammonia level was 256. Hemoglobin was 7.3. He has guaiac-positive stools. He was admitted where he was being treated for GI bleeding. Chest x-ray, however, showed small bilateral pulmonary infiltrates. Of note, patient had a critical state in July 2017 and August 2017 hospitalization where he was intubated, had moderate to large bilateral pulmonary infiltrates. These infiltrates were noted on CT chest to be highly suggestive of inflammatory pneumonitis, although there could have been superimposed fluid overload. Patient is currently on room air FiO2. 100% oxygen saturation. Patient is not on any inhalers at home. He is not on any home oxygen. He definitely was seeing a motor brakeman at one point, but he does not recall what it was for at [facility], but it was not for chronic infiltrates as far as he can remember. PAST MEDICAL HISTORY: Cirrhosis, chronic anemia, thrombocytopenia, history of pulmonary infiltrates. MEDICATIONS: Medication list reviewed per electronic record. Medications include Levaquin and Flagyl at this time with octreotide and proton pump inhibitor and other medicines. ALLERGIES: CODEINE AND PENICILLIN. SOCIAL HISTORY: Patient drank alcohol heavily for only 5 years, but quit in 2007. Formally used marijuana and snorted cocaine longtime ago, but quit. Patient smoked cigarettes from 2003 to 2007 only and most of his life was a nonsmoker. He lives with his sister currently. FAMILY HISTORY: Noncontributory to this condition. REVIEW OF SYSTEMS: GENERAL: No weight gain. HEENT: No dry mouth. ENDOCRINE: He is not known to have thyroid disease previous he says. IMMUNOLOGIC: No rheumatoid arthritis known. PULMONARY: No asthma. CARDIAC: He claims his heart is strong. GI: No constipation. : No blood in urine. NEUROLOGIC: No seizures. DERMATOLOGIC: No rashes. OBJECTIVE: VITAL SIGNS: Afebrile, vital signs noted per electronic record. GENERAL: In no acute distress, alert and calm. HEENT: Normocephalic, atraumatic. NECK: Supple. Throat midline. LUNGS: Bilateral air entry, rare rhonchi, mostly clear. CARDIOVASCULAR: S1, S2. No murmurs, rubs, or gallops. ABDOMEN: Soft, nontender. EXTREMITIES: No clubbing, no cyanosis, there is mostly no edema. INTEGUMENT: No rash, no purpura. LABS: 15 BUN, 1.1 creatinine. 3.5 potassium, 17 bicarbonate. 4 white count, 23 hematocrit, 70,000 platelets. Guaiac-positive stools. Ammonia level has decreased from 256 to 125. Lactic acid level was 48. INR was 1.5. IMPRESSION AND PLAN: 1. Bilateral small pulmonary infiltrates. Infiltrates continued to improve since the July and August hospitalization, although definitely are present for a prolonged/significant amount of time and they are persistent. 2. Admit for gastrointestinal bleed. 3. Encephalopathy, hepatic. Resolved. 4. Lactic acidosis. 5. Treat for gastrointestinal bleed. 6. Cirrhosis. 7. Former minimal smoker. 8. Chronic anemia. 9. Thrombocytopenia. 10. History of seeing motor brakeman for unclear, possibly unassociated reasons in past. As x-rays continued to get better, we will allow the gastroenterology workup to continue firstly. The sister was not present but I communicated to the patient about the persistence of infiltrates and that this is remarkable. The persistent infiltrates do reasonably need repeat imaging which would be done with high-resolution chest computerized tomography. However, given the significant and persistent improvement, it would be reasonable to repeat a 2-view chest radiograph in next few days, which I would prefer to avoid extensive inpatient workup. Will follow along closely. Patient should continue smoking cessation and continue abstinence from substances. Thank you very much, Dr. Villarreal and Dr. Kirby for allowing me the chance to participate in the care of Mr. Guerra. Please call for questions. Job#: [id number]
[2018-02-14 11:02] LABS: BASOPHILS % 0.6 % (0.0-1.0); EOSINOPHILS # (AUTO) 0.1 (0.0-0.4); EOSINOPHILS % 3.6 % (0.0-6.0); HEMATOCRIT 30.2 % (38.2-49.6); HEMOGLOBIN 9.7 g/dL (14.0-18.0); LYMPHOCYTES # (AUTO) 0.7 (1.0-3.2); LYMPHOCYTES % 19.6 % (18.0-39.1); MEAN CORPUSCULAR HEMOGLOBIN 26.5 pg (28-32); MEAN CORPUSCULAR HGB CONC 32.1 g/dL (31-35); MEAN CORPUSCULAR VOLUME 82.5 fL (81-99); MONOCYTES # (AUTO) 0.8 (0.2-0.8); MONOCYTES % 23.1 % (4.4-11.3); NEUTROPHILS # (AUTO) 1.8 (2.1-6.9); NEUTROPHILS % 52.8 % (38.7-80.0); PLATELET COUNT 71 x10e3/uL (140-360); RED BLOOD COUNT 3.66 x10e6/uL (4.3-5.7); RED CELL DISTRIBUTION WIDTH 20.6 % (11.7-14.4)
[2018-02-14] MEDS: OCTREOTIDE ACETATE 600 MCG in SODIUM CHLORIDE 0.9% 250ML 300 ML IV SCH (12:06)
--- NOTE | 2018-02-14 16:00 | Diagnostic Imaging Report ---
PROCEDURE: Frontal and lateral views of the chest. COMPARISON: 02/12/18 INDICATIONS: LUNG INFILTRATES FINDINGS: Lines/tubes: None. Lungs: The lungs are well inflated. Mild central vascular congestion. Mild right upper lobe opacification. Pleura: There is no significant pleural effusion or pneumothorax. Heart and mediastinum: The heart and the mediastinum are normal. Bones: No acute bony abnormality. Gaseous distention of a bowel loop under the diaphragm, likely transverse colon. IMPRESSION: Mild right upper lobe opacification representing atelectasis or pneumonia. Mild central vascular congestion. Dictated by: Taj Lane M.D. on 02/14/2018 at 16:06 Electronically approved by: Taj Lane M.D. on 02/14/2018 at 16:06
[2018-02-14 18:27] LABS: BASOPHILS % 0.5 % (0.0-1.0); EOSINOPHILS # (AUTO) 0.1 (0.0-0.4); EOSINOPHILS % 3.3 % (0.0-6.0); HEMATOCRIT 32.6 % (38.2-49.6); HEMOGLOBIN 10.3 g/dL (14.0-18.0); LYMPHOCYTES # (AUTO) 0.9 (1.0-3.2); LYMPHOCYTES % 22.2 % (18.0-39.1); MEAN CORPUSCULAR HEMOGLOBIN 26.5 pg (28-32); MEAN CORPUSCULAR HGB CONC 31.6 g/dL (31-35); MONOCYTES # (AUTO) 0.8 (0.2-0.8); MONOCYTES % 19.6 % (4.4-11.3); NEUTROPHILS # (AUTO) 2.1 (2.1-6.9); NEUTROPHILS % 54.1 % (38.7-80.0); PLATELET COUNT 72 x10e3/uL (140-360); RED BLOOD COUNT 3.88 x10e6/uL (4.3-5.7); RED CELL DISTRIBUTION WIDTH 21.1 % (11.7-14.4)
--- NOTE | 2018-02-14 18:51 | Diagnostic Imaging Report ---
Tagged-RBC GI Bleed Study Clinical information: 68-year-old male with cirrhosis and coagulopathy. Discussion: The patient's own red blood cells were labeled with 19 mCi of technetium-99m pertechnetate using the in vitro method (UltraTag). Dynamic images of the abdomen were obtained through 60 minutes. Distribution of tracer activity appears physiologic throughout the abdomen. No abnormal accumulation of tracer is seen within the gastrointestinal lumen. Impression: No scan evidence of active gastrointestinal bleeding at this time. Signed by: Dr. Anusha Ye M.D. on 02/14/2018 6:48 PM
[2018-02-14] MEDS: TAMSULOSIN HCL 0.4 MG CAP PO SCH (21:01)
[2018-02-15] VITALS (7 sets, daily range): BP systolic 93–116; BP diastolic 62–77
[2018-02-15] MEDS ORDERED: PHYTONADIONE 10 MG/ML AMP SQ STA (01:19)
[2018-02-15 01:49] LABS: BASOPHILS % 0.2 % (0.0-1.0); EOSINOPHILS # (AUTO) 0.2 (0.0-0.4); EOSINOPHILS % 3.9 % (0.0-6.0); HEMATOCRIT 29.2 % (38.2-49.6); HEMOGLOBIN 9.5 g/dL (14.0-18.0); LYMPHOCYTES # (AUTO) 1.2 (1.0-3.2); LYMPHOCYTES % 28.2 % (18.0-39.1); MEAN CORPUSCULAR HEMOGLOBIN 26.7 pg (28-32); MEAN CORPUSCULAR HGB CONC 32.5 g/dL (31-35); MONOCYTES # (AUTO) 0.9 (0.2-0.8); MONOCYTES % 19.7 % (4.4-11.3); NEUTROPHILS # (AUTO) 2.1 (2.1-6.9); NEUTROPHILS % 47.5 % (38.7-80.0); PLATELET COUNT 70 x10e3/uL (140-360); RED BLOOD COUNT 3.56 x10e6/uL (4.3-5.7); RED CELL DISTRIBUTION WIDTH 20.6 % (11.7-14.4)
[2018-02-15] MEDS: OCTREOTIDE ACETATE 600 MCG in SODIUM CHLORIDE 0.9% 250ML 300 ML IV SCH ×2 (02:00→12:00)
[2018-02-15] MEDS: METRONIDAZOLE 500MG/NS 100ML 100 ML IV SCH ×4 (03:25→20:45)
[2018-02-15 05:36] LABS: BASOPHILS % 0.5 % (0.0-1.0); EOSINOPHILS # (AUTO) 0.2 (0.0-0.4); EOSINOPHILS % 4.9 % (0.0-6.0); HEMATOCRIT 29.9 % (38.2-49.6); HEMOGLOBIN 9.5 g/dL (14.0-18.0); LYMPHOCYTES # (AUTO) 1.2 (1.0-3.2); LYMPHOCYTES % 29.2 % (18.0-39.1); MEAN CORPUSCULAR HEMOGLOBIN 26.5 pg (28-32); MEAN CORPUSCULAR HGB CONC 31.8 g/dL (31-35); MEAN CORPUSCULAR VOLUME 83.3 fL (81-99); MONOCYTES # (AUTO) 0.7 (0.2-0.8); MONOCYTES % 18.1 % (4.4-11.3); NEUTROPHILS # (AUTO) 1.9 (2.1-6.9); NEUTROPHILS % 47.1 % (38.7-80.0); PLATELET COUNT 71 x10e3/uL (140-360); RED BLOOD COUNT 3.59 x10e6/uL (4.3-5.7); RED CELL DISTRIBUTION WIDTH 20.6 % (11.7-14.4)
[2018-02-15] MEDS: LEVOFLOXACIN 500MG/D5W 100ML 100 ML IV SCH (08:46)
[2018-02-15] MEDS: SODIUM CHLORIDE 0.9% 1000ML 1,000 ML IV SCH ×3 (08:46→22:18)
[2018-02-15] MEDS: PANTOPRAZOLE 40 MG 10ML VIAL IV SCH ×2 (08:46→20:40)
[2018-02-15] MEDS: RIFAXIMIN 550 MG TABLET PO SCH ×2 (08:46→17:00)
[2018-02-15] MEDS ORDERED: LACTULOSE SYRUP 20 GM/30 ML UDC PO SCH (09:00)
[2018-02-15] MEDS: PROPRANOLOL HCL 10 MG TAB PO SCH ×2 (09:01→17:00)
[2018-02-15] MEDS ORDERED: POTASSIUM CHLORIDE 10 MEQ TABCR PO ONE (09:15)
[2018-02-15 09:44] LABS: ANISOCYTOSIS MODE; HYPOCHROMASIA SLIGHT; PLATELET ESTIMATE SLIGHTLY DECREASED; PLATELET MORPHOLOGY COMMENT FEW LARGE; POIKILOCYTOSIS MODE; RBC MORPHOLOGY COMMENT ABNORMAL; TARGET CELLS FEW
[2018-02-15 11:13] LABS: BASOPHILS % 0.3 % (0.0-1.0); EOSINOPHILS # (AUTO) 0.2 (0.0-0.4); EOSINOPHILS % 4.8 % (0.0-6.0); HEMATOCRIT 29.5 % (38.2-49.6); HEMOGLOBIN 9.3 g/dL (14.0-18.0); LYMPHOCYTES # (AUTO) 0.7 (1.0-3.2); LYMPHOCYTES % 19.9 % (18.0-39.1); MEAN CORPUSCULAR HEMOGLOBIN 26.5 pg (28-32); MEAN CORPUSCULAR HGB CONC 31.5 g/dL (31-35); MONOCYTES # (AUTO) 0.5 (0.2-0.8); MONOCYTES % 14.2 % (4.4-11.3); NEUTROPHILS % 60.5 % (38.7-80.0); PLATELET COUNT 70 x10e3/uL (140-360); RED BLOOD COUNT 3.51 x10e6/uL (4.3-5.7); RED CELL DISTRIBUTION WIDTH 20.6 % (11.7-14.4)
[2018-02-15] MEDS: LACTULOSE SYRUP 20 GM/30 ML UDC PO SCH ×2 (16:23→20:41)
--- NOTE | 2018-02-15 16:52 | Progress Note ---
DATE: February 15, 2018 PULMONARY MEDICINE PROGRESS NOTE SUBJECTIVE: Mr. Guerra was seen and examined at bedside. No further bleeding. Scan for bleeding yesterday came back negative. In addition, patient had no further respiratory distress. Chest x-ray done showing persistence of infiltrates. Patient at this time continues to have steady progress. REVIEW OF SYSTEMS: No bleeding, no rash. OBJECTIVE VITAL SIGNS: Afebrile. Vital signs noted per the chart record. GENERAL: No acute distress, alert and calm. HEENT: Normocephalic, atraumatic. NECK: Supple. Throat midline. LUNGS: Bilateral air entry, few rhonchi. CARDIOVASCULAR: S1, S2. No murmurs, rubs, or gallops. ABDOMEN: Soft, nontender. EXTREMITIES: No clubbing, no cyanosis, there is no edema. INTEGUMENT: No rash, no purpura. LABS: 3 white count, 29 hematocrit, 70 platelets. IMPRESSION AND PLAN 1. Bilateral chronic infiltrates. 2. Possible fluid overload. 3. Admit for gastrointestinal bleed. 4. Admit for hepatic encephalopathy. At this time continue current treatment. Patient did go see the luster applicator at [facility] who received my CD that I had sent to him. Will follow up with him. Patient will need repeat CT chest assessment as next step. Will follow up the GI workup in the meantime. Job#: [id number] MACY CARPENTER
[2018-02-15 18:48] LABS: BASOPHILS % 0.3 % (0.0-1.0); EOSINOPHILS # (AUTO) 0.1 (0.0-0.4); EOSINOPHILS % 2.3 % (0.0-6.0); HEMATOCRIT 32.2 % (38.2-49.6); HEMOGLOBIN 10.2 g/dL (14.0-18.0); LYMPHOCYTES # (AUTO) 0.6 (1.0-3.2); LYMPHOCYTES % 15.3 % (18.0-39.1); MEAN CORPUSCULAR HEMOGLOBIN 26.6 pg (28-32); MEAN CORPUSCULAR HGB CONC 31.7 g/dL (31-35); MEAN CORPUSCULAR VOLUME 83.9 fL (81-99); MONOCYTES # (AUTO) 0.5 (0.2-0.8); MONOCYTES % 12.6 % (4.4-11.3); NEUTROPHILS # (AUTO) 2.8 (2.1-6.9); NEUTROPHILS % 69.5 % (38.7-80.0); RED BLOOD COUNT 3.84 x10e6/uL (4.3-5.7); RED CELL DISTRIBUTION WIDTH 20.6 % (11.7-14.4)
[2018-02-15 18:52] LABS: PLATELET COUNT 74 x10e3/uL (140-360)
[2018-02-15] MEDS: TAMSULOSIN HCL 0.4 MG CAP PO SCH (20:39)
[2018-02-16] VITALS (7 sets, daily range): BP systolic 95–109; BP diastolic 56–76
[2018-02-16 00:37] LABS: BASOPHILS % 0.4 % (0.0-1.0); EOSINOPHILS # (AUTO) 0.2 (0.0-0.4); EOSINOPHILS % 2.8 % (0.0-6.0); HEMATOCRIT 31.3 % (38.2-49.6); HEMOGLOBIN 10.2 g/dL (14.0-18.0); LYMPHOCYTES # (AUTO) 1.2 (1.0-3.2); LYMPHOCYTES % 22.5 % (18.0-39.1); MEAN CORPUSCULAR HEMOGLOBIN 26.6 pg (28-32); MEAN CORPUSCULAR HGB CONC 32.6 g/dL (31-35); MEAN CORPUSCULAR VOLUME 81.5 fL (81-99); MONOCYTES # (AUTO) 0.9 (0.2-0.8); MONOCYTES % 16.9 % (4.4-11.3); NEUTROPHILS # (AUTO) 3.1 (2.1-6.9); NEUTROPHILS % 57.2 % (38.7-80.0); PLATELET COUNT 80 x10e3/uL (140-360); RED BLOOD COUNT 3.84 x10e6/uL (4.3-5.7); RED CELL DISTRIBUTION WIDTH 20.4 % (11.7-14.4)
[2018-02-16] MEDS: OCTREOTIDE ACETATE 500 MCG in SODIUM CHLORIDE 0.9% 250ML 250 ML IV SCH ×3 (00:38→16:00)
[2018-02-16] MEDS: METRONIDAZOLE 500MG/NS 100ML 100 ML IV SCH ×4 (03:26→21:25)
[2018-02-16 05:13] LABS: BASOPHILS % 0.4 % (0.0-1.0); EOSINOPHILS # (AUTO) 0.2 (0.0-0.4); EOSINOPHILS % 3.9 % (0.0-6.0); HEMATOCRIT 31.2 % (38.2-49.6); HEMOGLOBIN 9.9 g/dL (14.0-18.0); LYMPHOCYTES # (AUTO) 1.4 (1.0-3.2); LYMPHOCYTES % 26.9 % (18.0-39.1); MEAN CORPUSCULAR HEMOGLOBIN 26.3 pg (28-32); MEAN CORPUSCULAR HGB CONC 31.7 g/dL (31-35); MONOCYTES % 17.7 % (4.4-11.3); NEUTROPHILS # (AUTO) 2.7 (2.1-6.9); NEUTROPHILS % 50.5 % (38.7-80.0); PLATELET COUNT 81 x10e3/uL (140-360); RED BLOOD COUNT 3.76 x10e6/uL (4.3-5.7); RED CELL DISTRIBUTION WIDTH 21.1 % (11.7-14.4)
[2018-02-16 05:48] LABS: ALANINE AMINOTRANSFERASE 23 IU/L (0-55); ALBUMIN 2.3 g/dL (3.5-5.0); ALKALINE PHOSPHATASE 81 IU/L (40-150); ANION GAP 7.7 mmol/L (8-16); BLOOD UREA NITROGEN 7 mg/dL (7-26); BUN/CREATININE RATIO 9 (6-25); CALCIUM 7.5 mg/dL (8.4-10.2); CARBON DIOXIDE 22 mmol/L (22-29); CHLORIDE 111 mmol/L (98-107); EST GLOMERULAR FILTRATION RATE > 60 ML/MIN (60-); GLUCOSE 81 mg/dL (74-118); POTASSIUM 3.7 mmol/L (3.5-5.1); SODIUM 137 mmol/L (136-145)
[2018-02-16 05:55] LABS: ALBUMIN/GLOBULIN RATIO 0.8 (0.8-2.0)
[2018-02-16] MEDS: SODIUM CHLORIDE 0.9% 1000ML 1,000 ML IV SCH ×2 (08:41→17:42)
[2018-02-16] MEDS: RIFAXIMIN 550 MG TABLET PO SCH ×2 (09:00→17:00)
[2018-02-16] MEDS: LEVOFLOXACIN 500MG/D5W 100ML 100 ML IV SCH (09:00)
[2018-02-16] MEDS: PROPRANOLOL HCL 10 MG TAB PO SCH ×2 (09:00→17:00)
[2018-02-16] MEDS: PANTOPRAZOLE 40 MG 10ML VIAL IV SCH ×2 (09:00→21:25)
[2018-02-16 12:21] LABS: BASOPHILS % 0.5 % (0.0-1.0); EOSINOPHILS # (AUTO) 0.3 (0.0-0.4); EOSINOPHILS % 4.1 % (0.0-6.0); HEMATOCRIT 31.9 % (38.2-49.6); HEMOGLOBIN 10.3 g/dL (14.0-18.0); LYMPHOCYTES # (AUTO) 1.4 (1.0-3.2); MEAN CORPUSCULAR HEMOGLOBIN 26.9 pg (28-32); MEAN CORPUSCULAR HGB CONC 32.3 g/dL (31-35); MEAN CORPUSCULAR VOLUME 83.3 fL (81-99); MONOCYTES # (AUTO) 1.6 (0.2-0.8); MONOCYTES % 23.9 % (4.4-11.3); NEUTROPHILS # (AUTO) 3.2 (2.1-6.9); NEUTROPHILS % 49.2 % (38.7-80.0); PLATELET COUNT 84 x10e3/uL (140-360); RED BLOOD COUNT 3.83 x10e6/uL (4.3-5.7); RED CELL DISTRIBUTION WIDTH 20.8 % (11.7-14.4)
--- NOTE | 2018-02-16 13:04 | Progress Note ---
DATE: February 16, 2018 PULMONARY MEDICINE PROGRESS NOTE SUBJECTIVE: Mr. Guerra continues to do okay. No clinical gross bleeding. Patient without any worsening of his dyspnea. He is on room air at this time right now. He is in bed without word confusion. REVIEW OF SYSTEMS: No bleeding, no rash. OBJECTIVE VITAL SIGNS: Afebrile. Vital signs noted per the chart record. GENERAL: No acute distress, alert and calm. HEENT: Normocephalic, atraumatic. NECK: Supple. Throat midline. LUNGS: Bilateral air entry, few rhonchi. CARDIOVASCULAR: S1 and S2. No murmurs, rubs, or gallops. ABDOMEN: Soft, nontender. EXTREMITIES: No clubbing, no cyanosis, there is no edema. INTEGUMENT: No rash, no purpura. LABS: 31 hematocrit, 0.8 creatinine. IMPRESSION AND PLAN 1. Chronic bilateral pulmonary infiltrates. 2. Possible superimposed fluid overload. 3. Admit with gastrointestinal bleed. 4. Admit with hepatic encephalopathy. 5. Continue to follow up closely. No bleeding being recorded. He is on an octreotide drip per GI. Continue to follow up as well on beta blockers and rifaximin, and ensure encephalopathy improves. In the meantime we will follow his fluid status while he is getting additional fluid; noted order still in place. Followup clinically. Will require outpatient CT chest. Job#: [id number] MACY
[2018-02-16 17:02] LABS: EOSINOPHILS % (MANUAL) 3 % (0-7); LYMPHOCYTES % (MANUAL) 28 % (19-48); MONOCYTES % (MANUAL) 17 % (3.4-9.0); NEUTROPHILS % (MANUAL) 50 % (40-74); RBC MORPHOLOGY COMMENT NORMAL
[2018-02-16 17:03] LABS: PLATELET ESTIMATE MODERATELY DECREASED; PLATELET MORPHOLOGY COMMENT NORMAL
[2018-02-16 19:48] LABS: BASOPHILS % 0.4 % (0.0-1.0); EOSINOPHILS # (AUTO) 0.3 (0.0-0.4); EOSINOPHILS % 5.4 % (0.0-6.0); HEMATOCRIT 30.2 % (38.2-49.6); HEMOGLOBIN 9.8 g/dL (14.0-18.0); LYMPHOCYTES # (AUTO) 1.4 (1.0-3.2); LYMPHOCYTES % 24.3 % (18.0-39.1); MEAN CORPUSCULAR HEMOGLOBIN 26.9 pg (28-32); MEAN CORPUSCULAR HGB CONC 32.5 g/dL (31-35); MONOCYTES # (AUTO) 1.2 (0.2-0.8); MONOCYTES % 21.1 % (4.4-11.3); NEUTROPHILS # (AUTO) 2.7 (2.1-6.9); NEUTROPHILS % 48.4 % (38.7-80.0); RED BLOOD COUNT 3.64 x10e6/uL (4.3-5.7); RED CELL DISTRIBUTION WIDTH 20.5 % (11.7-14.4)
[2018-02-16 19:50] LABS: PLATELET COUNT 84 x10e3/uL (140-360)
[2018-02-16] MEDS: TAMSULOSIN HCL 0.4 MG CAP PO SCH (21:25)
[2018-02-17 00:06] VITALS: BP 110/73
[2018-02-17] MEDS: SODIUM CHLORIDE 0.9% 1000ML 1,000 ML IV SCH ×3 (03:55→23:24)
[2018-02-17 04:59] VITALS: BP 99/52
[2018-02-17 08:00] VITALS: BP 94/68
[2018-02-17] MEDS: PANTOPRAZOLE 40 MG 10ML VIAL IV SCH ×2 (09:00→21:17)
[2018-02-17] MEDS: RIFAXIMIN 550 MG TABLET PO SCH ×2 (09:00→16:55)
[2018-02-17] MEDS: PROPRANOLOL HCL 10 MG TAB PO SCH ×2 (09:00→16:54)
[2018-02-17] MEDS: LEVOFLOXACIN 500MG/D5W 100ML 100 ML IV SCH (09:00)
--- NOTE | 2018-02-17 11:22 | Progress Note ---
DATE: February 17, 2018 PULMONARY MEDICINE PROGRESS NOTE SUBJECTIVE: Mr. Guerra was seen and examined at bedside. He continues to have good progress. Patient still has no evidence of highly active bleeding. Breathing is continuing to stabilize. He is on room air FIO2 right night. REVIEW OF SYSTEMS: No bleeding, no headaches, no emesis. OBJECTIVE VITAL SIGNS: Afebrile. Vital signs noted per electronic record. GENERALLY: No acute distress, alert and calm. HEENT: Normocephalic, atraumatic. NECK: Supple. Throat midline. LUNGS: Bilateral air entry, a few rhonchi. CARDIOVASCULAR: S1 and S2. No murmurs, rubs or gallops. ABDOMINAL: Soft, nontender. EXTREMITIES: No clubbing, no cyanosis. There is no edema. INTEGUMENT: No rash. No purpura. IMPRESSION AND PLAN 1. Possible fluid overload. 2. Interstitial pneumonitis, chronic, persistent. 3. Admit with gastrointestinal bleed. 4. Admit with hepatic encephalopathy. Continue current treatment at this time. Will follow up serial respiratory exams. Chest x-rays can be repeated if more fluid loading is to take place. Continue antibiotics for now. Follow up for further bleeding and continue GI workup as per GI. Job#: [id number] SIN
[2018-02-17 12:00] VITALS: BP 91/55
[2018-02-17 16:00] VITALS: BP 84/69
[2018-02-17 21:06] VITALS: BP 97/50
[2018-02-17] MEDS: TAMSULOSIN HCL 0.4 MG CAP PO SCH (21:17)
[2018-02-18 00:55] VITALS: BP 105/56
[2018-02-18 05:00] VITALS: BP 93/57
[2018-02-18 08:00] VITALS: BP_SYST 109; BP_SYST 136; BP_DIAS 56; BP_DIAS 60
[2018-02-18 10:00] VITALS: BP 109/56
[2018-02-18] MEDS: PROPRANOLOL HCL 10 MG TAB PO SCH (10:00)
[2018-02-18] MEDS: PANTOPRAZOLE 40 MG 10ML VIAL IV SCH (10:00)
[2018-02-18] MEDS: RIFAXIMIN 550 MG TABLET PO SCH (10:00)
[2018-02-18] MEDS: LEVOFLOXACIN 500MG/D5W 100ML 100 ML IV SCH (10:00)
[2018-02-18 12:00] VITALS: BP 102/60
--- NOTE | 2018-02-18 12:38 | Progress Note ---
DATE: February 18, 2018 PULMONARY MEDICINE PROGRESS NOTE SUBJECTIVE: Mr. Guerra was seen and examined at bedside. He continues to have steady mentation. No respiratory distress episodes. No king bleeding as well. REVIEW OF SYSTEMS: No bleeding, no rash, no chest pain, no diarrhea. OBJECTIVE VITAL SIGNS: Vital signs noted per electronic record. GENERALLY: No acute distress, alert and calm. HEENT: Normocephalic, atraumatic. NECK: Supple. Throat midline. LUNGS: Bilateral air entry, a few rare rhonchi. CARDIOVASCULAR: S1 and S2. No murmurs, rubs or gallops. ABDOMINAL: Soft, nontender. EXTREMITIES: No clubbing, no cyanosis. There is no edema. INTEGUMENT: No rash. No purpura. LABS: Potassium , BUN 7, creatinine 0.8. White count 6, hematocrit 30. INR 1.7 a few days ago. IMPRESSION AND PLAN 1. Bilateral chronic interstitial infiltrates. 2. Mild fluid overload possible, stable. 3. Admit for gastrointestinal bleed. 4. Admit for hepatic encephalopathy. Continue current treatment. GI is maintaining workup. Continue to get patient in steadily negative balance as long as he tolerates well. He is still on the levofloxacin, which can be stopped from a pulmonary point of view unless it is for any secondary prophylaxis of SVT, which I do not know if the patient ever had before. This would be per GI. Continue treatment per the GI specialist. Ambulate patient. Hopefully he can be discharged soon. Job#: [id number] EV
--- NOTE | 2018-02-19 19:03 | Discharge Summary ---
ADMISSION DIAGNOSES 1. Encephalopathy, toxic metabolic. 2. End-stage liver disease. 3. Coagulopathy. 4. Anemia concerning for gastrointestinal bleed. 5. Volume overload. DISCHARGE DIAGNOSES 1. Improved encephalopathy. 2. End-stage liver disease. HOSPITALIZATION SUMMARY: Mr. Guerra is a 68-year-old man who was admitted on 02/13/2018 and discharged on 02/18/2018. Hospitalization course significant for encephalopathy which improved with medical therapy including Lactulose and volume overload which improved with diuretics. He had evaluation by gastroenterology. He had diarrhea which resolved following discontinuation of Lactulose. He was also seen by urology for issues with urinary retention and Marin catheter placement. Upon discharge, no bleeding, improved condition, alert and oriented x3. Volume status euvolemic, and with adequate family support, willing to care for the patient at home. He is discharged with followup with his consulting physicians and his primary care provider within the next week to two weeks. Upon discharge, please see medication reconciliation form for home medications. GRACIE GARCIA MD Job#: [id number] GH
== END 2018-02-18 15:30 | disposition home or self-care (01) | DRG 442 ==
LOC: ER 20:44 → ERHOLD 02-13 00:59 → IMCU 02-13 02:45 → MED/SURG2 02-15 14:58
PROVIDERS: ADMIT Internal Medicine; ATTEND Internal Medicine
PROC: 302 Administration, Circulatory, Transfusion (ICD-10-PCS; principal; 2018-02-12)
PROC: 30230N1 Transfusion of Nonautologous Red Blood Cells into Peripheral Vein, Open Approach (ICD-10-PCS; 2018-02-12)
PROC: 30230K1 Transfusion of Nonautologous Frozen Plasma into Peripheral Vein, Open Approach (ICD-10-PCS; 2018-02-12)
DX: K72.90 Hepatic failure, unspecified without coma (principal); E87.2 Acidosis; K92.1 Melena; I85.10 Secondary esophageal varices without bleeding; K76.6 Portal hypertension; D68.4 Acquired coagulation factor deficiency; K70.30 Alcoholic cirrhosis of liver without ascites; E86.0 Dehydration; D69.6 Thrombocytopenia, unspecified; R33.9 Retention of urine, unspecified; D50.0 Iron deficiency anemia secondary to blood loss (chronic); E87.70 Fluid overload, unspecified; F10.21 Alcohol dependence, in remission; E87.6 Hypokalemia; N40.1 Benign prostatic hyperplasia with lower urinary tract symptoms; R33.8 Other retention of urine; B18.2 Chronic viral hepatitis C; K31.89 Other diseases of stomach and duodenum; J84.89 Other specified interstitial pulmonary diseases; R91.8 Other nonspecific abnormal finding of lung field
CPT/HCPCS: 36415; 36430; 51700; 70450; 71046; 78278; 80053; 81001; 82140; 82270; 82550; 82553; 83605; 83735; 83880; 84443; 84484; 85025; 85610; 85730; 86850; 86900; 86920; 87040; 87086; 93005; 96361; 96366; 99284; A9512; J0692; J1956; J2353; J3370; J3430; J7030; J7050; P9016; P9017

== ENCOUNTER 2019-12-05 12:50 | Inpatient (IN) | payer MEDICARE, OTHER ==
[~2019-12-05] VITALS: Ht 175.3 cm; Wt 85.7 kg
[~2019-12-05 12:50] MED LIST changes: +LACTULOSE20 GM/30 M PO; +LIDOCAINE HCL50 ML TOP; +PANTOPRAZOLE SO40 MG PO; +SPIRONOLACTONE25 MG PO; +TAMSULOSIN HCL0.4 MG PO
--- OUTSIDE RECORDS SUMMARY | 2019-12-05 12:52 | XMS REPORT | Clinical Summary ---
Author [facility] Address Unknown Phone Unavailable Care Team Providers Care Director Funeral Name Role Phone Cedrick Hale PCP Unavailable Allergies Comments Active Allergy Reactions Severity Noted Date Codeine Itching Medium 12/01/2016 Doesn't remember reactions. Penicillins Other (See 04/27/2017 Comments) Medications End Date Status Medication Sig Dispensed Refills Start Date Active pantoprazole (PROTONIX) Take 1 tablet 30 tablet 0 40 MG tablet (40 mg total) 7 by mouth daily. Active lactulose (CHRONULAC) 20 Take 30 mLs 1000 mL 1 1 gram/30 mL solution (20 g total) 7 by mouth 3 (three) times daily (goal of 3 daily bowel movements). Active aspirin 81 MG EC tablet Take 81 mg by 0 mouth daily. Active b complex vitamins tablet Take 1 tablet 0 by mouth daily. Active lidocaine (XYLOCAINE) 5 % Apply 1 0 07/18 ointmentIndications: application 8 Other cirrhosis of liver topically 3 (HCC), Chronic hepatitis times daily C without hepatic coma as needed (HCC), Hepatic encephalopathy (HCC), Immunity status testing, Screening for malignant neoplasm, Iron deficiency anemia, unspecified iron deficiency anemia type, Secondary esophageal varices without bleeding (HCC) Active tamsulosin (FLOMAX) 0.4 0.4 mg 2 0 mg Cap 24 hr (two) times 8 capsuleIndications: Other daily . cirrhosis of liver (HCC), Chronic hepatitis C without hepatic coma (HCC), Hepatic encephalopathy (HCC), Immunity status testing, Screening for malignant neoplasm, Iron deficiency anemia, unspecified iron deficiency anemia type, Secondary esophageal varices without bleeding (HCC) Active ZOSTER VACCINE LIVE, PF, One dose now. 0 11/16 SUBQIndications: Other Second dose 8 cirrhosis of liver (HCC), given two to Chronic hepatitis C six months without hepatic coma AFTER first (HCC), Hepatic dose. encephalopathy (HCC), Immunity status testing, Screening for malignant neoplasm, Iron deficiency anemia, unspecified iron deficiency anemia type, Secondary esophageal varices without bleeding (HCC) Active rifAXIMin 550 mg Take 1 tablet 60 tablet 11 01 TabIndications: Hepatic (550 mg 8 encephalopathy (HCC), total) by Other cirrhosis of liver mouth 2 (two) (HCC), Chronic hepatitis times daily. C without hepatic coma (HCC), Immunity status testing, Screening for malignant neoplasm, Iron deficiency anemia, unspecified iron deficiency anemia type, Secondary esophageal varices without bleeding (HCC) Active ferrous sulfate 325 (65 Take 325 mg 0 FE) MG tablet by mouth daily with breakfast. Active spironolactone Take 50 mg by 0 (ALDACTONE) 50 MG tablet mouth daily. Active Problems Problem Noted Date Other cirrhosis of liver 03/01/2018 Last Assessment & Plan: Diagnosis based on the constellation of clinical findings, laboratory parameters and imaging. Etiology is mos t likely due to chronic hepatitis C infection. Her/His condition has decomp ensated with features of portal hypertension and hepatic ecephalopathy. We will get labs today to calculate the MELD score and complete a comprehen sive evaluation for other causes of cirrhosis. Cirrhosis guidelines were re viewed. Chronic hepatitis C without hepatic coma 03/01/2018 Last Assessment & Plan: Hepatitis C, genotype 1b, treated with Harvoni in 2017 with SVR. 05/04/2019 HCV PCR not detected. Hepatic encephalopathy 03/01/2018 Last Assessment & Plan: Blair grade 0-1. No asterixis on e xam. Frequent admission for hepatic encephalopathy . Continue lactulose tit rate lactulose with a goal of 2-3 soft stools daily. We will start rifaxi min. Immunity status testing 03/01/2018 Last Assessment & Plan: CDC recommends that all patients with c hronic liver disease, regardless of etiology, should be immunized to preven t hepatitis A and hepatitis B if they are not already immune. This shou ld be done in addition to other age-appropriate vaccines. We will test for immunity to both viruses - vaccine recommendations will follow. Screening for malignant neoplasm 03/01/2018 Last Assessment & Plan: Cirrhosis, regardless of etiology, is a risk factor for development of hepatocellular carcinoma with an annual incidence of 1.5-7%. We recommend surveillance for HCC with abdominal norma ging and alphafetoprotein every 6 months. US 10/2017 showed no suspicious masses. Next imaging with MRI due 04/2018. We will check AFP. Iron deficiency anemia 03/01/2018 Last Assessment & Plan: Microcytic anemia. 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 He recently required blood transfusion and did not have signs of overt GI bleeding. We will check Iron studies an d recommend iron replacement therapy. Secondary esophageal varices without bleeding 2017 Last Assessment & Plan: Because of the risk for upper GI bleedi ng, all patients with portal hypertension should be screened for gas troesopahgeal varices and/or portal hypertensive gastropathy. EGD 8 showed Varices with no bleeding were found at the gastric cardia There were no stigmata of recent bleeding. 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 Hospitalization in 08/2017 with possible GI bleed GI bleed 04/28/2017 Encounters Care Team Description Date Type Specialty Nuzhat David MD 05/31/2019 Anesthesia Gastroenterology Event [facility] UPPER ENDOSCOPY 05/31/2019 Surgery Gastroenterology [facility] 05/31/2019 Hospital Gastroenterology Encounter after 12/04/2018 Family History Medical History Relation Name Comments Heart disease Father Liver disease Mother Relation Name Status Comments Father Mother Social History Date Tobacco Use Types Packs/Day Years Used Never Smoker Smokeless Tobacco: Never Used Alcohol Use Drinks/Week oz/Week Comments No Sex Assigned at Date Recorded Not on file Industry Job Start Date Occupation Not on file Not on file Not on file Travel End Travel History Travel Start No recent travel history available. Last Filed Vital Signs Time Taken Vital Sign Reading 05/31/2019 3:15 PM PROCUREMENT CLERK Blood Pressure 116/72 05/31/2019 3:15 PM PROCUREMENT CLERK Pulse 75 05/31/2019 3:15 PM PROCUREMENT CLERK Temperature 36.7 C (98.1 F) 05/31/2019 3:15 PM PROCUREMENT CLERK Respiratory Rate 18 05/31/2019 3:15 PM PROCUREMENT CLERK Oxygen Saturation 99% - Inhaled Oxygen - Concentration 05/31/2019 12:14 PM PROCUREMENT CLERK Weight 86.4 kg (190 lb 6.4 oz) 05/31/2019 12:14 PM PROCUREMENT CLERK Height 172.7 cm (5' 8") 05/31/2019 12:14 PM PROCUREMENT CLERK Body Mass Index 28.95 Plan of Treatment Health Maintenance Due Date Last Done Comments COLON CANCER SCREENING 1950 COLONOSCOPY MEDICARE ANNUAL WELLNESS 08/18/2017 (YEAR 2 or FIRST YEAR if no IPPE) PNEUMOCOCCAL 65+ 11/16/2018 11/16/2017 LOW/MEDIUM RISK (2 of 2 - PPSV23) INFLUENZA VACCINE Completed 04/30/2019, 018 Procedures Comments Procedure Name Priority Date/Time Associated Diag nosis REPORT OF PROCEDURE - 05/31/2019 ENDOSCOPY URL 2:41 PM PROCUREMENT CLERK UPPER ENDOSCOPY 05/31/2019 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 after 12/04/2018 Insurance Payer Benefit Subscriber ID Type Phone Address Plan / Group [facility] MEDICARE ADV [facility] ([place]) [place] [address] Advance Directives For more information, please contact: [facility] [address] [place] [address] Date Inactivated Comments Code Status Date Activated 04/30/2017 6:47 PM Full Code 04/28/2017 1:08 AM This code status was determined by: Patient
--- OUTSIDE RECORDS SUMMARY | 2019-12-05 12:53 | XMS REPORT ---
Author Author [facility] t Organization [facility] Address [address] [place] [address] Phone Unavailable Care Team Providers Care Telephone Assembler Name Role Phone NONSTAFF PCP Unavailable Lani ROMERO YICHING Attphys Unavailable FOSTER GAINES Attphys Unavailable CROOMS, RUTHANN JAMISE Attphys Unavailable Lani ROMERO YICHING Admphys Unavailable NEHA GAINESALD Admphys Unavailable CROOMS, RUTHANN JAMISE Admphys Unavailable Payers Payer Name Policy Type Policy Number Effective Date Expiration Date Rebeca french [employer] Medicare Advantage [id number] 2016 00:0 0:[address] [facility] [employer] Medicare Advantage [id number] 2016 00:0 0:00 [facility] Problems Condition Name Condition Details Condition Category Status Onset Date Resolution Date Last Treatment Date Treating Clinician Comments Source Anemia Anemia Problem Active [facility] Ascites Ascites Problem Active [facility] Hepatic cirrhosis Cirrhosis Problem Active [facility] Pneumonia Pneumonia Problem Active [facility] Upper gastrointestinal hemorrhage Upper GI bleed Problem Active [facility] Coagulation disorder Coagulopathy Problem Active [facility] Gastrointestinal hemorrhage GI bleed Problem Active [facility] Hepatic encephalopathy Hepatic encephalopathy Problem Active [facility] Rhabdomyolysis Rhabdomyolysis Problem Active [facility] Retention of urine Urinary retention Problem Active [facility] Allergies, Adverse Reactions, Alerts Allergy Name Allergy Type Status Severity Reaction(s) Onset Date Inacti ve Date Treating Clinician Comments Source Penicillin Allergy to Substance Active Unknown 2017-08-23 00:00:00 [facility] Codeine Allergy to Substance Active Unknown rash 2017-08-15 00:00:00 [facility] Medications Ordered Medication Name Filled Medication Name Start Date Stop Da te Current Medication? Ordering Clinician Indication Dosage Frequency Signature (SIG) Comments Components Source Lactulose 20 Gm/30 Ml Solution Lactulose 20 Gm/30 Ml Solution Yes 60 Four Times Daily [facility] Lidocaine Hcl 50 Ml Btl Lidocaine Hcl 50 Ml Btl Yes 1 Three Times A Day [facility] Pantoprazole Sodium (Protonix) 40 Mg Tablet. Pantopr azole Sodium (Protonix) 40 Mg Tablet. Yes 40 Daily [facility] Spironolactone 25 Mg Tablet Spironolactone 25 Mg Tablet Yes 50 Daily [facility] Tamsulosin Hcl 0.4 Mg Cap.er.24h Tamsulosin Hcl 0.4 Mg Cap.er.24h Yes .4 Daily [facility] Acetaminophen With Codeine (Tylenol With Codeine #3 Tablet) 1 Each Tablet, 300 Mg Oral Acetaminophen With Codeine (Tylenol With Codeine #3 Tablet) 1 Each Tablet, 300 Mg Oral 2018 00:00:00 No 300 Every 4 Hours as needed for Pain [facility] Ciprofloxacin Hcl (Cipro) 500 Mg Tablet, 500 Mg Oral C iprofloxacin Hcl (Cipro) 500 Mg Tablet, 500 Mg Oral 2018 00:00:00 No 500 Daily [facility] Ondansetron (Zofran Odt) 4 Mg Tab.rapdis, 4 Mg Oral On dansetron (Zofran Odt) 4 Mg Tab.rapdis, 4 Mg Oral 2018 00:00:00 No 4 Every 6 Hours as needed for Nausea [facility] Procedures Procedure Date / Time Performed Performing Clinician [facility] e X-ray of chest, two views 2018-02-14 00:00:00 TOYIN CORONADO [facility] Computed tomography of brain without radiopaque contrast 201 02-20-30 00:00:00 YANNICK DESAI [facility] X-ray of chest, two views 2018 00:00:00 YANNICK DESAI [facility] FLUOROSCOPY OF BLADDER AND URETHRA USING L OSM CONTRAST 2017 00:00:[address] [facility] Computed tomography of abdomen and pelvis without then with contrast 2017-08-22 00:00:00 [facility] TRANSFUSE NONAUT FROZEN PLASMA IN [facility] ART, OPEN 5 00:00:00 YANNICK DESAI [facility] INSPECTION OF UPPER INTESTINAL TRACT, ENDO 2017-08-17 00:00:00 H PARTH COYLE [facility] Computed tomography of chest with contrast 2017-08-16 00:00:00 YANNICK FLORES [facility] US abdomen complete 2017-08-15 00:00:00 YANNICK DESAI [facility] RESPIRATORY VENTILATION, 24-96 CONSECUTIVE HOURS 2017-08-15 00:00:00 BHUPENDRA SARMIENTO [facility] TRANSFUSE NONAUT RED BLOOD CELLS IN PERIPH ART, OPEN 2017-07 00:00:00 YANNICK DESAI [facility] INSERTION OF ENDOTRACHEAL AIRWAY INTO TRACHEA, VIA OPENING 2 00:00:00 CAMP HILLYANNICK [facility] Encounters Start Date/Time End Date/Time Encounter Type Admission Type [facility] Care Department Encounter ID Source 2018-02-13 00:59:00 2018-02-18 15:30:00 Discharged Inpatient 1 BENJAMIN ROMERO [facility] [id number] [facility] 2017-08-15 23:20:00 2017-08-29 15:16:00 Discharged Inpatient ER FOSTER GAINES [facility] [id number] [facility] Results Test Description Test Time Test Comments Results Result Comments Source Blood Culture 2018-02-17 21:23:00 Test Item Blood Culture (test code = 66985911) NO GROWTH AFTER 5 DAYS, FINAL REPORT [facility] Blood Kjaro5737-78-13 19:50:00* Test Item Value Reference Range Interpretation Comments White Blood Count (test code = 6690-2) 5.60 4.8-10.8 [facility] HospitalRed Blood Qravt3647-91-79 19:50:00* Test Item Value Reference Range Interpretation Comments Red Blood Count (test code = 789-8) 3.64 4.3-5.7 [facility] HospitalHemoglobin2018-08-03 19:50:00* Test Item Value Reference Range Interpretation Comments Hemoglobin (test code = 92094-0) 9.8 14.0-18.0 [facility] HospitalHematocrit2018-08-03 19:50:00* Test Item Value Reference Range Interpretation Comments Hematocrit (test code = 4544-3) 30.2 38.2-49.6 [facility] HospitalMean Corpuscular Fvtjgl8062-98-24 19:50:00* Test Item Value Reference Range Interpretation Comments Mean Corpuscular Volume (test code = 787-2) 83.0 81-99 [facility] HospitalMean Corpuscular Kutbrmnmrj7888-43-88 19:50:00* Test Item Value Reference Range Interpretation Comments Mean Corpuscular Hemoglobin (test code = 785-6) 26.9 28-32 [facility] HospitalMean Corpuscular Hemoglobin Concent 2018-02-16 19:50:00* Test Item Value Reference Range Interpretation Comments Mean Corpuscular Hemoglobin Concent (test code = 786-4) 32.5 31-35 [facility] HospitalRed Cell Distribution Mzgrw9741-85-22 19:50:00* Test Item Value Reference Range Interpretation Comments Red Cell Distribution Width (test code = 13304-0) 20.5 11.7 -14.4 [facility] HospitalPlatelet Tlckj1863-18-84 19:50:00* Test Item Value Reference Range Interpretation Comments Platelet Count (test code = 777-3) 84 140-360 NO CLOT DETECTED [facility] HospitalNeutrophils (%) (Auto) 2018-02-16 19:50:00* Test Item Value Reference Range Interpretation Comments Neutrophils (%) (Auto) (test code = 20105-2) 48.4 38.7-80.0 [facility] HospitalLymphocytes (%) (Auto)2018-02-16 19:50:00 * Test Item Value Reference Range Interpretation Comments Lymphocytes (%) (Auto) (test code = 736-9) 24.3 18.0-39.1 [facility] HospitalMonocytes (%) (Auto)2018-02-16 19:50:00* Test Item Value Reference Range Interpretation Comments Monocytes (%) (Auto) (test code = 5905-5) 21.1 4.4-11.3 [facility] HospitalEosinophils (%) (Auto)2018-02-16 19:50:00 * Test Item Value Reference Range Interpretation Comments Eosinophils (%) (Auto) (test code = 713-8) 5.4 0.0-6.0 [facility] HospitalBasophils (%) (Auto)2018-02-16 19:50:00* Test Item Value Reference Range Interpretation Comments Basophils (%) (Auto) (test code = 706-2) 0.4 0.0-1.0 [facility] HospitalIM GRANULOCYTES %2018-02-16 19:50:00* Test Item Value Reference Range Interpretation Comments IM GRANULOCYTES % (test code = IM GRANULOCYTES %) 0.4 0.0- 1.0 [facility] HospitalNeutrophils # (Auto)2018-02-16 19:50:00* Test Item Value Reference Range Interpretation Comments Neutrophils # (Auto) (test code = 751-8) 2.7 2.1-6.9 [facility] HospitalLymphocytes # (Auto)2018-02-16 19:50:00* Test Item Value Reference Range Interpretation Comments Lymphocytes # (Auto) (test code = 26744-6) 1.4 1.0-3.2 [facility] HospitalMonocytes # (Auto)2018-02-16 19:50:00* Test Item Value Reference Range Interpretation Comments Monocytes # (Auto) (test code = 742-7) 1.2 0.2-0.8 [facility] HospitalEosinophils # (Auto)2018-02-16 19:50:00* Test Item Value Reference Range Interpretation Comments Eosinophils # (Auto) (test code = 711-2) 0.3 0.0-0.4 [facility] HospitalBasophils # (Auto)2018-02-16 19:50:00* Test Item Value Reference Range Interpretation Comments Basophils # (Auto) (test code = 704-7) 0.0 0.0-0.1 [facility] HospitalAbsolute Immature Granulocyte (auto 2018-02-16 19:50:00* Test Item Value Reference Range Interpretation Comments Absolute Immature Granulocyte (auto (eb t code = Absolute Immature Granulocyte (auto) 0.02 0-0.1 [facility] HospitalDifferential Total Cells Counted 2018-02-16 17:03:00* Test Item Value Reference Range Interpretation Comments Differential Total Cells Counted (test code = Differen tial Total Cells Counted) 100 [facility] HospitalNeutrophils % (Manual)2018-02-16 17:03:00 * Test Item Value Reference Range Interpretation Comments Neutrophils % (Manual) (test code = 40332-7) 50 40-74 [facility] HospitalLymphocytes % (Manual)2018-02-16 17:03:00 * Test Item Value Reference Range Interpretation Comments Lymphocytes % (Manual) (test code = 737-7) 28 19-48 [facility] HospitalMonocytes % (Manual)2018-02-16 17:03:00* Test Item Value Reference Range Interpretation Comments Monocytes % (Manual) (test code = 744-3) 17 3.4-9.0 [facility] HospitalEosinophils % (Manual)2018-02-16 17:03:00 * Test Item Value Reference Range Interpretation Comments Eosinophils % (Manual) (test code = 714-6) 3 0-7 [facility] HospitalReactive Beuegjycejj4474-43-63 17:03:00* Test Item Value Reference Range Interpretation Comments Reactive Lymphocytes (test code = 95637-7) 2 [facility] HospitalPlatelet Wgrlysfl9345-83-40 17:03:00* Test Item Value Reference Range Interpretation Comments Platelet Estimate (test code = 68897-6) MODERATELY DECREASED [facility] HospitalPlatelet Morphology Awwrtce2638-51-17 17:03:00* Test Item Value Reference Range Interpretation Comments Platelet Morphology Comment (test code = 01227-4) NORMAL [facility] HospitalRed Cell Morphology Auuzoxo5840-81-09 17:03:00* Test Item Value Reference Range Interpretation Comments Red Cell Morphology Comment (test code = 6742-1) NORMAL [facility] HospitalAmmonia2018-08-03 06:12:00* Test Item Value Reference Range Interpretation Comments Ammonia (test code = 42232-5) 107 31-123 [facility] HospitalTotal Grnastt0308-44-41 05:56:00* Test Item Value Reference Range Interpretation Comments Total Protein (test code = 2885-2) 5.1 6.5-8.1 [facility] HospitalGlobulin2018-08-03 05:56:00* Test Item Value Reference Range Interpretation Comments Globulin (test code = 80015-7) 2.8 2.3-3.5 [facility] HospitalAlbumin/Globulin Fngut4033-56-45 05:56:00 * Test Item Value Reference Range Interpretation Comments Albumin/Globulin Ratio (test code = 1759-0) 0.8 0.8-2.0 [facility] Gnogr9957-24-63 05:48:00* Test Item Value Reference Range Interpretation Comments Sodium Level (test code = 2951-2) 137 136-145 [facility] HospitalPotassium Szhkf0713-17-58 05:48:00* Test Item Value Reference Range Interpretation Comments Potassium Level (test code = 2823-3) 3.7 3.5-5.1 [facility] HospitalChloride Ejpcq1611-20-93 05:48:00* Test Item Value Reference Range Interpretation Comments Chloride Level (test code = 2075-0) 111 98-107 [facility] HospitalCarbon Dioxide Ipkmf0218-78-35 05:48:00* Test Item Value Reference Range Interpretation Comments Carbon Dioxide Level (test code = 2028-9) 22 22-29 [facility] HospitalAnion Rub4839-88-41 05:48:00* Test Item Value Reference Range Interpretation Comments Anion Gap (test code = 21795-9) 7.7 8-16 [facility] HospitalBlood Urea Tkfnanel8180-37-90 05:48:00* Test Item Value Reference Range Interpretation Comments Blood Urea Nitrogen (test code = 3094-0) 7 7-26 [facility] HospitalCreatinine2018-08-03 05:48:00* Test Item Value Reference Range Interpretation Comments Creatinine (test code = 2160-0) 0.80 0.72-1.25 [facility] HospitalBUN/Creatinine Snanx8657-36-49 05:48:00* Test Item Value Reference Range Interpretation Comments BUN/Creatinine Ratio (test code = 3097-3) 9 6-25 [facility] HospitalEstimat Glomerular Filtration Rate 2018-02-16 05:48:00* Test Item Value Reference Range Interpretation Comments Estimat Glomerular Filtration Rate (test code = 65206-5) 60- >60 Ranges were taken from the National Kidney Disease Education Program and the [employer] literature.Reference ranges:60 or greater: Ngeplq70-73 ( for 3 consecutive months): Chronic kidney disease 15 or less: Kidney failureAudie L. Murphy Memorial VA HospitalGlucose Ikobw0474-14-55 05:48:00* Test Item Value Reference Range Interpretation Comments Glucose Level (test code = RNZ7803) 81 74-118 [facility] HospitalCalcium Logfc0253-83-37 05:48:00* Test Item Value Reference Range Interpretation Comments Calcium Level (test code = 36180-6) 7.5 8.4-10.2 [facility] HospitalTotal Dlqbdqfrs1426-59-36 05:48:00* Test Item Value Reference Range Interpretation Comments Total Bilirubin (test code = 1975-2) 1.0 0.2-1.2 [facility] HospitalAspartate Amino Transf (AST/SGOT) 2018-02-16 05:48:00* Test Item Value Reference Range Interpretation Comments Aspartate Amino Transf (AST/SGOT) (test code = Aspartate Amino Transf (AST/SGOT)) 43 5-34 [facility] HospitalAlanine Aminotransferase (ALT/SGPT) 2018-02-16 05:48:00* Test Item Value Reference Range Interpretation Comments Alanine Aminotransferase (ALT/SGPT) (test code = 1742-6) 23 0-55 [facility] HospitalAlbumin2018-08-03 05:48:00* Test Item Value Reference Range Interpretation Comments Albumin (test code = 1751-7) 2.3 3.5-5.0 [facility] HospitalAlkaline Tmlyjzyjynz5189-32-05 05:48:00* Test Item Value Reference Range Interpretation Comments Alkaline Phosphatase (test code = 6768-6) 81 40-150 [facility] HospitalHypochromasia2018-08-02 09:44:00* Test Item Value Reference Range Interpretation Comments Hypochromasia (test code = 728-6) SLIGHT [facility] HospitalPoikilocytosis2018-08-02 09:44:00* Test Item Value Reference Range Interpretation Comments Poikilocytosis (test code = 779-9) MODE [facility] HospitalAnisocytosis2018-08-02 09:44:00* Test Item Value Reference Range Interpretation Comments Anisocytosis (test code = 702-1) MODE [facility] HospitalTarget Izpum3557-64-59 09:44:00* Test Item Value Reference Range Interpretation Comments Target Cells (test code = 69502-5) FEW [facility] HospitalG I AKGFZ5631-27-42 18:47:00 [facility] [address] [address] Patient Name: CARLTON ROSARIO MR #: [id number] : 1950 Age/Sex: 68/M Req #: [id number] Adm Physician: KAT AREVALO MD Ordered by: PARTH HERRING MD Report #: [id number] Loca tion: [facility] Room/Bed: [place] [address] Procedure: NM/G I BLEED Exam Date: Exam Time: REPORT ST ATUS: Signed Tagged-RBC GI Bleed Study Clinical information: 68-year-old male with cirrhosis and coagulopathy. Discussion: The patient's own red bl ood cells were labeled with 19 mCi of technetium-99m pertechnetate using the i n vitro method (UltraTag). Dynamic images of the abdomen were obtained throug h 60 minutes. Distribution of tracer activity appears physiologic throughou t the abdomen. No abnormal accumulation of tracer is seen within the gastroin testinal lumen. Impression: No scan evidence of active gastrointestin al bleeding at this time. Signed by: Dr. Naomie Ye M.D. on 02/14/2018 6: 48 PM Dictated By: NAOMIE YE MD 47 Transcribed By: KAREN on 02/14/181847 COPY TO: PARTH DYKES MD CHEST 2 TOIHJ7942-90-57 16:06:00 [id number] [address] Patient Name: CARLTON ROSARIO MR #: [id number] : 1950 Age/Sex: 68/M Req #: [id number] Adm Physician: KAT AMAYA MD Ordered by: TOYIN CORONADO MD Report #: [id number] Location: [facility] Room/Bed: [place] [address] Procedure: [id number] DX/CHEST 2 VIEWS Exam Date: 02/14/18 Exam Time: 1538 REPORT STATUS: Signed PROCEDURE: Frontal and lateral views of the c hest. COMPARISON: 02/12/18 INDICATIONS: LUNG INFILTRATES FINDINGS: Lines/tubes: None. Lungs: The lungs are well inflated. Mild central vascular congestion. Mild right upper lobe opacification. Pleur a: There is no significant pleural effusion or pneumothorax. Heart and me diastinum: The heart and the mediastinum are normal. Bones: No acute bon y abnormality. Gaseous distention of a bowel loop under the diaphragm, likely transverse colon. IMPRESSION: Mild right upper lobe opacification representing atelectasis or pneumonia. Mild central vascular congestion. Dictated by: Taj Ramos M.D. on 02/14/2018 at 16:06 Electronically approved by: Taj Ramos M.D. on 02/14/2018 at 16:06 Di ctated By: TAJ RAMOS MD 1606 COPY TO: TOYIN CORONADO MD, [facility] Prothrombin Lino8285-16-47 06:12:00* Test Item Value Reference Range Interpretation Comments Prothrombin Time (test code = 5902-2) 18.6 11.9-14.5 [facility] HospitalProthromb Time International Ratio 2018-02-14 06:12:00* Test Item Value Reference Range Interpretation Comments Prothromb Time International Ratio (test code = 6301-6) 1.68 Oral Anticoagulant Therapy INR Values:1. Low Intensity Therapy 1.5 - 2.02 . Moderate Intensity Therapy 2.0 - 3.03. High Intensity Therapy(1) 2.5 - 3. 54. High Intensity Therapy(2) 3.0 - 4.05. Panic Value INR > 5.0 [facility] HospitalActivated Partial Thromboplast Time 2018-02-14 06:12:00* Test Item Value Reference Range Interpretation Comments Activated Partial Thromboplast Time (test code = 93901-5) 39.8 23.8-35.5 [facility] HospitalCreatine Kinase [id number] 23:36:00* Test Item Value Reference Range Interpretation Comments Creatine Kinase MB (test code = 54615-4) 3.50 0-5.0 [facility] HospitalTroponin [id number] 23:36:00* Test Item Value Reference Range Interpretation Comments Troponin I (test code = VUM1884) 0.011 0-0.300 [facility] HospitalCreatine Ssbjcz3478-54-96 23:30:00* Test Item Value Reference Range Interpretation Comments Creatine Kinase (test code = 2157-6) 494 30-200 [facility] HospitalUrine [id number] 01:56:00* Test Item Value Reference Range Interpretation Comments Urine WBC (test code = 5821-4) NONE 0-5 [facility] HospitalUrine [id number] 01:56:00* Test Item Value Reference Range Interpretation Comments Urine RBC (test code = 15423-4) NONE 0-5 [facility] HospitalUrine Ngyiuthw2112-04-99 01:56:00* Test Item Value Reference Range Interpretation Comments Urine Bacteria (test code = 96079-4) NONE NONE [facility] HospitalUrine Epithelial Fomza7748-75-37 01:56:00 * Test Item Value Reference Range Interpretation Comments Urine Epithelial Cells (test code = 10167-8) NONE NONE [facility] HospitalUrine Ejbgc0352-27-83 01:25:00* Test Item Value Reference Range Interpretation Comments Urine Color (test code = 5778-6) YELLOW YELLOW [facility] HospitalUrine Vliztyh0944-83-70 01:25:00* Test Item Value Reference Range Interpretation Comments Urine Clarity (test code = 53123-6) CLEAR CLEAR [facility] HospitalUrine Specific Ynvgnvh7775-54-55 01:25:00 * Test Item Value Reference Range Interpretation Comments Urine Specific [place] (test code = 5811-5) 1.030 1.010-1.02 5 [facility] HospitalUrine [id number] 01:25:00* Test Item Value Reference Range Interpretation Comments Urine pH (test code = 74308-2) 6 5-7 [facility] Leukocyte Braplbvf9018-50-41 01:25:00* Test Item Value Reference Range Interpretation Comments Urine Leukocyte Esterase (test code = 5799-2) NEGATIVE NEGATIVE [facility] Tthxssw0483-72-49 01:25:00* Test Item Value Reference Range Interpretation Comments Urine Nitrite (test code = 35858-5) NEGATIVE NEGATIVE [facility] Zrywmhs8973-59-49 01:25:00* Test Item Value Reference Range Interpretation Comments Urine Protein (test code = 5804-0) TRACE NEGATIVE [facility] HospitalUrine Glucose (UA)2018-02-13 01:25:00* Test Item Value Reference Range Interpretation Comments Urine Glucose (UA) (test code = 2349-9) NEGATIVE NEGATIVE [facility] Sazmuvt5200-38-82 01:25:00* Test Item Value Reference Range Interpretation Comments Urine Ketones (test code = 76958-6) TRACE NEGATIVE [facility] Zzhdgsnlcvtc2455-18-18 01:25:00* Test Item Value Reference Range Interpretation Comments Urine Urobilinogen (test code = 77014-2) 0.2 0.2-1 [facility] Ykqmxgqiy3813-01-02 01:25:00* Test Item Value Reference Range Interpretation Comments Urine Bilirubin (test code = 1978-6) NEGATIVE NEGATIVE [facility] HospitalUrine Hqbxi9314-86-17 01:25:00* Test Item Value Reference Range Interpretation Comments Urine Blood (test code = 26299-9) NEGATIVE NEGATIVE [facility] HospitalB-Type Natriuretic Jiaanvo8176-40-97 00:39:00* Test Item Value Reference Range Interpretation Comments B-Type Natriuretic Peptide (test code = 61833-2) 29.0 0-100 [facility] Occult Jdwgy1315-93-98 23:27:00* Test Item Value Reference Range Interpretation Comments Stool Occult Blood (test code = 2335-8) POSITIVE NEGATIVE [facility] HospitalCHEST 2 [id number] 22:54:00 [facility] [address] [place] [address] Patient Name: CARLTON ROSARIO MR #: [id number] : Age/Sex: 68/M Req #: [id number] Adm Physician: Ordered by: YANNICK DESAI MD Report #: [id number] Location: ER Room/Bed: Procedure: [id number] DX/CHEST 2 VIEWS Exam Date: 01/16 Exam Time: 2230 REPORT STATUS: Signed C HEST 2 VIEWS, Technique: CHEST 2 VIEWS Comparison: 08/26/2017 Clinic al history: Altered mental status, falls DISCUSSION: Right IJ central v enous catheter projects over the SVC. Stable mildly enlarged cardiomediastinal silhouette. There are diffuse and patchy bilateral opacities. Question underl russell small pleural effusions. Remote right clavicle deformity. IMPRESSION: Bilateral pulmonary opacities, which may reflect edema and/or infection. Rec ommend short-term follow-up upright PA and lateral to document resolution and exclude underlying chronic lung change. Signed by: Dr Terese Rivera MD on 2018 10:58 PM Dictated By: TERESE RIVERA MD 5423 Transcribed By: KAREN on 02/12/18 22 58 COPY TO: YANNICK DESAI MD CT BRAIN [id number] 22:46:00 [address] [address] Patient Name: CARLTON ROSARIO MR #: [id number] : Age/Sex: 68/M Req #: [id number] Adm Physician: BENJAMIN HUNTER MD Ordered by: YANNICK DESAI MD Report #: [id number] Location: [facility]/SURG Room/Bed: [facility] Procedure: [id number] CT/CT BRAIN WO Exam Date: 02/12/18 Exam Time: 2208 REPORT STATUS: Signed ADDENDUM #1 Dose modulation, iterative reconstruction, and/or weight based adjustment of the mA/kV was util ized to reduce the radiation dose to as low as reasonably achievable. Si gned by: Dr. Jesus Sommer M.D. on 03/06/2018 4:38 PM ORIGINAL REPORT Exam: Head CT without contrast History: Altered mental status Comparison studies: None Technique: Axial images were obtained from the skull base to the vertex. Coronal and sagittal images reconstructed from the axial data. Intravenous contrast: None Findings: Scalp: No abnormal ities. Bones: No fractures, blastic or lytic lesions. Brain sulci: Mildly prominent.. Ventricles: Mild compensatory dilatation. No hydrocephalus. Ext ra-axial spaces: No masses, no fluid collection. Parenchyma: No mass, a cute hemorrhage or acute or chronic cortical vascular insults. A few scattered hypodensities in the supratentorial white matter and mildly confluent hypoden se changes in the bilateral periatrial periventricular white matter are nonspe cific but most compatible with chronic microvascular ischemic changes. Sellar/ suprasellar region: No abnormalities. Craniocervical junction: Patent foramen magnum. No Chiari one malformation. Incidental findings: Atherosclerotic calcifications in the carotid siphons. Small bilateral sphenoid sinus retenti on cysts. IMPRESSION: No acute intracranial abnormalities. Chron ic findings: 1. Mild generalized volume loss. 2. Mild microvascular ischem ic changes. Signed by: Dr. Jesus Sommer M.D. on 2018 10:49 PM Dictated By: JESUS SOMMER MD 1638 Transcribed By: KAREN on 02/12/18 2249 COPY TO: YANNICK DESAI MD Thyroid Stimulating Hormone (TSH)2018 21:56:00* Test Item Value Reference Range Interpretation Comments Thyroid Stimulating Hormone (TSH) (test code = 98324-5) 5.012 0.350-4.940 [facility] HospitalLactic Acid [id number] 21:37:00* Test Item Value Reference Range Interpretation Comments Lactic Acid Level (test code = Lactic Acid Level) 45.6 4.5- 19.8 [facility] HospitalMagnesium Hvtzo7664-17-36 21:37:00* Test Item Value Reference Range Interpretation Comments Magnesium Level (test code = 06588-8) 1.9 1.3-2.1 [facility] HospitalPolychromasia2018-02-11 10:47:00* Test Item Value Reference Range Interpretation Comments Polychromasia (test code = 93989-3) FEW [facility] HospitalMicrocytosis2018-02-11 10:47:00* Test Item Value Reference Range Interpretation Comments Microcytosis (test code = 741-9) SLIG [facility] HospitalMacrocytosis2018-02-11 10:47:00* Test Item Value Reference Range Interpretation Comments Macrocytosis (test code = 738-5) MARKED [facility] HospitalPhosphorus Wtndc6085-36-35 07:36:00* Test Item Value Reference Range Interpretation Comments Phosphorus Level (test code = JQZ0945) 2.7 2.3-4.7 [facility] HospitalIonized Scmcnqm6108-92-39 07:19:00* Test Item Value Reference Range Interpretation Comments Ionized Calcium (test code = 28441-6) 1.1 1.09-1.30 [facility] HospitalBasophils % (Manual)2017-08-25 08:13:00* Test Item Value Reference Range Interpretation Comments Basophils % (Manual) (test code = 35784-6) 2 0-1.5 [facility] HospitalDirect Prkatknja1594-59-97 07:32:00* Test Item Value Reference Range Interpretation Comments Direct Bilirubin (test code = 35777-2) 0.5 0.0-5.0 [facility] HospitalLipase2018-02-04 06:27:00* Test Item Value Reference Range Interpretation Comments Lipase (test code = 3040-3) 24 8-78 [facility] HospitalUrine Bofljsu0614-60-98 14:28:00* Test Item Value Reference Range Interpretation Comments Urine Culture (test code = 630-4) Organism: KLEBSIELLA OXYTOCA [facility] HospitalInfluenza Virus Types A,B Antigen 2017-08-17 04:06:00* Test Item Value Reference Range Interpretation Comments Influenza Virus Types A,B Antigen (test code = 68111-3) NEGATIVE NEGATIVE [facility] HospitalArterial Blood [id number] 11:24:00* Test Item Value Reference Range Interpretation Comments Arterial Blood pH (test code = 2744-1) 7.28 7.31-7.41 [facility] HospitalArterial Blood Partial Pressure CO2 2017-08-16 11:24:00* Test Item Value Reference Range Interpretation Comments Arterial Blood Partial Pressure CO2 (test code = 2019-02) 52 41-51 [facility] HospitalArterial Blood Partial Pressure O2 2017-08-16 11:24:00* Test Item Value Reference Range Interpretation Comments Arterial Blood Partial Pressure O2 (test code = 2019-02) 247 80-105 [facility] HospitalArterial Blood [id number] 11:24:00* Test Item Value Reference Range Interpretation Comments Arterial Blood HCO3 (test code = 1960-4) 25 23-28 [facility] HospitalArterial Blood Base Zbfkor3305-89-59 11:24:00* Test Item Value Reference Range Interpretation Comments Arterial Blood Base Excess (test code = 1925-7) -2.0 -2-3 [facility] HospitalArterial Blood Oxygen Saturation 2017-08-16 11:24:00* Test Item Value Reference Range Interpretation Comments Arterial Blood Oxygen Saturation (test code = 2708-6) 100.0 95-98 [facility] HospitalNucleated Red Blood Ffdhf3532-55-62 08:54:00* Test Item Value Reference Range Interpretation Comments Nucleated Red Blood Cells (test code = 54277-2) 2 [facility] HospitalD-Dimer Quantitative (PE/DVT)2017-08-15 23:47:00* Test Item Value Reference Range Interpretation Comments D-Dimer Quantitative (PE/DVT) (test code = 59627-0) 6.59 0. 00-0.45 [facility] HospitalHEPATIC FUNCTION [id number] 06:24:00 * Test Item Value Reference Range Interpretation Comments TOTAL PROTEIN (BEAKER) (test code = 770) 6.5 gm/dL 6.0-8.3 ALBUMIN (BEAKER) (test code = 1145) 2.9 g/dL 3.5-5.0 L BILIRUBIN TOTAL (BEAKER) (test code = 377) 1.0 mg/dL 0.2-1.2 BILIRUBIN DIRECT (BEAKER) (test code = 706) 0.4 mg/dL 0.1-0.5 ALKALINE PHOSPHATASE (BEAKER) (test code = 346) 97 U/L 40-150 AST (SGOT) (BEAKER) (test code = 353) 54 U/L 5-34 H ALT (SGPT) (BEAKER) (test code = 347) 34 U/L 6-55 HEPATIC FUNCTION [id number] 06:30:00* Test Item Value Reference Range Interpretation Comments TOTAL PROTEIN (BEAKER) (test code = 770) 6.2 gm/dL 6.0-8.3 ALBUMIN (BEAKER) (test code = 1145) 2.7 g/dL 3.5-5.0 L BILIRUBIN TOTAL (BEAKER) (test code = 377) 0.7 mg/dL 0.2-1.2 BILIRUBIN DIRECT (BEAKER) (test code = 706) 0.3 mg/dL 0.1-0.5 ALKALINE PHOSPHATASE (BEAKER) (test code = 346) 104 U/L 40-150 AST (SGOT) (BEAKER) (test code = 353) 51 U/L 5-34 H ALT (SGPT) (BEAKER) (test code = 347) 34 U/L 6-55 CBC (HEMOGRAM ONLY)2017-04-29 06:04:00* Test Item Value Reference Range Interpretation Comments WHITE BLOOD CELL COUNT (BEAKER) (test code = 775) 4.3 K/ L 3.5- 10.5 RED BLOOD CELL COUNT (BEAKER) (test code = 761) 4.02 M/ L 4.63-6 .08 L HEMOGLOBIN (BEAKER) (test code = 410) 8.2 GM/DL 13.7-17.5 L HEMATOCRIT (BEAKER) (test code = 411) 28.0 % 40.1-51.0 L MEAN CORPUSCULAR VOLUME (BEAKER) (test code = 753) 69.7 fL 79. 0-92.2 L MEAN CORPUSCULAR HEMOGLOBIN (BEAKER) (test code = 751) 20.4 pg 25.7-32.2 L MEAN CORPUSCULAR HEMOGLOBIN CONC (BEAKER) (test code = 752) 29.3 GM/DL 32.3-36.5 L RED CELL DISTRIBUTION WIDTH (BEAKER) (test code = 412) 21.4 % 11.6-14.4 H PLATELET COUNT (BEAKER) (test code = 756) 99 K/CU MM 150-450 L NUCLEATED RED BLOOD CELLS (BEAKER) (test code = 413) 0 /100 WBC 0 -0 [id number] 08:31:00* Test Item Value Reference Range Interpretation Comments AMMONIA (BEAKER) (test code = 348) 111 mol/L 18-72 H Specimen slightly hemolyzed BASIC METABOLIC [id number] 05:59:00* Test Item Value Reference Range Interpretation Comments SODIUM (BEAKER) (test code = 381) 140 meq/L 136-145 POTASSIUM (BEAKER) (test code = 379) 3.8 meq/L 3.5-5.1 Specimen slightly hemolyzed CHLORIDE (BEAKER) (test code = 382) 112 meq/L 98-107 H CO2 (BEAKER) (test code = 355) 21 meq/L 22-29 L BLOOD UREA NITROGEN (BEAKER) (test code = 354) 9 mg/dL 7-21 CREATININE (BEAKER) (test code = 358) 0.73 mg/dL 0.57-1.25 Specimen slightly hemolyzed GLUCOSE RANDOM (BEAKER) (test code = 652) 79 mg/dL 70-105 CALCIUM (BEAKER) (test code = 697) 8.0 mg/dL 8.4-10.2 L EGFR (BEAKER) (test code = 1092) 107 mL/min/1.73 sq m ESTIMATED GFR IS NOT ACCURATE CREATININE CLEARANCE IN PREDICTING GLOMERULAR FILTRATION RATE. ESTIMATED GFR IS NOT APPLICABLE FOR DIALYSIS PATIENTS. HEPATIC FUNCTION [id number] 05:59:00* Test Item Value Reference Range Interpretation Comments TOTAL PROTEIN (BEAKER) (test code = 770) 6.8 gm/dL 6.0-8.3 Specimen slightly hemolyzed ALBUMIN (BEAKER) (test code = 1145) 2.9 g/dL 3.5-5.0 L Specimen slightly hemolyzed BILIRUBIN TOTAL (BEAKER) (test code = 377) 0.8 mg/dL 0.2-1.2 Specimen slightly hemolyzed BILIRUBIN DIRECT (BEAKER) (test code = 706) 0.3 mg/dL 0.1-0.5 Specimen slightly hemolyzed ALKALINE PHOSPHATASE (BEAKER) (test code = 346) 126 U/L 40-150 AST (SGOT) (BEAKER) (test code = 353) 62 U/L 5-34 H Specimen slightly hemolyzed ALT (SGPT) (BEAKER) (test code = 347) 34 U/L 6-55 Specimen slightly hemolyzed PT/[id number] 05:41:00* Test Item Value Reference Range Interpretation Comments PROTIME (BEAKER) (test code = 759) 16.8 seconds 11.7-14.7 H INR (BEAKER) (test code = 370) 1.4 <=5.9 PARTIAL THROMBOPLASTIN TIME (BEAKER) (test code = 760) 37.7 seconds 22.5-36.0 H RECOMMENDED COUMADIN/WARFARIN INR THERAPY RANGESSTANDARD DOSE: 2.0 - 3.0 Inclu gwendolyn: PROPHYLAXIS for venous thrombosis, systemic embolization; TREATMENT for burke ous thrombosis and/or pulmonary embolus.HIGH RISK: Target INR is 2.5-3.5 for pat ients with mechanical heart valves.CBC W/PLT COUNT & AUTO [id number] 05:39:00* Test Item Value Reference Range Interpretation Comments WHITE BLOOD CELL COUNT (BEAKER) (test code = 775) 4.9 K/ L 3.5- 10.5 RED BLOOD CELL COUNT (BEAKER) (test code = 761) 3.97 M/ L 4.63-6 .08 L HEMOGLOBIN (BEAKER) (test code = 410) 8.0 GM/DL 13.7-17.5 L HEMATOCRIT (BEAKER) (test code = 411) 26.7 % 40.1-51.0 L MEAN CORPUSCULAR VOLUME (BEAKER) (test code = 753) 67.3 fL 79. 0-92.2 L MEAN CORPUSCULAR HEMOGLOBIN (BEAKER) (test code = 751) 20.2 pg 25.7-32.2 L MEAN CORPUSCULAR HEMOGLOBIN CONC (BEAKER) (test code = 752) 30.0 GM/DL 32.3-36.5 L RED CELL DISTRIBUTION WIDTH (BEAKER) (test code = 412) 20.7 % 11.6-14.4 H PLATELET COUNT (BEAKER) (test code = 756) 98 K/CU MM 150-450 L MEAN PLATELET VOLUME (BEAKER) (test code = 754) fL 9.4-12 .4 Unable to report due to abnormal Platelet population distribution. NUCLEATED RED BLOOD CELLS (BEAKER) (test code = 413) 0 /100 WBC 0 -0 NEUTROPHILS RELATIVE PERCENT (BEAKER) (test code = 429) 46 % LYMPHOCYTES RELATIVE PERCENT (BEAKER) (test code = 430) 36 % MONOCYTES RELATIVE PERCENT (BEAKER) (test code = 431) 13 % EOSINOPHILS RELATIVE PERCENT (BEAKER) (test code = 432) 5 % BASOPHILS RELATIVE PERCENT (BEAKER) (test code = 437) 1 % NEUTROPHILS ABSOLUTE COUNT (BEAKER) (test code = 670) 2.25 K/ L 1.78-5.38 LYMPHOCYTES ABSOLUTE COUNT (BEAKER) (test code = 414) 1.75 K/ L 1.32-3.57 MONOCYTES ABSOLUTE COUNT (BEAKER) (test code = 415) 0.64 K/ L 0. 30-0.82 EOSINOPHILS ABSOLUTE COUNT (BEAKER) (test code = 416) 0.24 K/ L 0.04-0.54 BASOPHILS ABSOLUTE COUNT (BEAKER) (test code = 417) 0.03 K/ L 0. 01-0.08 IMMATURE GRANULOCYTES-RELATIVE PERCENT (BEAKER) (test code = 2801) 0 % 0-1 CHEST SINGLE (PORTABLE) [place] [address] Patient Name: CARLTON ROSARIO MR #: [id number] : 1950 Age/Sex: 67/M Req #: [id number] Adm Physician: FOSTER GAINES MD Ordered by: TOYIN CORONADO MD Report #: [id number] Location: MED/SURG3 Room/Bed: [facility] Procedure: [id number] DX/ CHEST SINGLE (PORTABLE) Exam Date: 08/26/17 Exam Shay e: 0610 REPORT STATUS: Signed Examination: Single AP view of the chest. COMPARISON: August 24, 2017 INDICATION: Pneumonia DISCUSSI ON: Lines/tubes: Right IJ catheter with tip overlying the superior vena ca va. Lungs: Multifocal interstitial and alveolar opacities. Pleura: T here is no pleural effusion or pneumothorax. Heart and mediastinum: Promin ent heart size. Bones and soft tissues: No acute bony abnormalities. IMPRESSION: Stable interstitial and alveolar opacities. Signed b y: Dr. Toño Kirkpatrick M.D. on 08/26/2017 7:18 AM Dictated By: TOÑO NICHOLSON MD 7 Transc ribed By: KAREN on 08/26/17717 COPY TO: TOYIN CORONADO MD CHEST SINGLE (PORTABLE) [place] [address] Patient Name: CARLTON ROSARIO MR #: [id number] : 1950 Age/Sex: 67/M Req #: [id number] Adm Physician: FOSTER GAINES MD Ordered by: TOYIN CORONADO MD Report #: [id number] Location: MED/SURG3 Room/Bed: [facility] Procedure: [id number] DX/ CHEST SINGLE (PORTABLE) Exam Date: Exam Time: REPORT STATUS: Signed EXAMINATION: CHEST SINGLE (PORTABLE) INDICA TION: Pneumonia COMPARISON: 08/22/2017 FINDINGS: TUBE S and LINES: Right IJ central line catheter in good position. LUNGS: Lung s are not well inflated. There are bibasilar atelectasis. There is perihila r interstital opacities, consistent with interstitial edema. PLEURA: No pl eural effusion or pneumothorax. HEART AND MEDIASTINUM: Cardiac size is mil dly enlarged. There are atherosclerotic calcifications within the aorta. BONES AND SOFT TISSUES: No acute osseous lesion. Soft tissues are unremarkab le. UPPER ABDOMEN: No free air under the diaphragm. IMPRESSION: Findings are compatible with multifocal infection versus pulmonary edema. These findings have not changed since prior examination Signed by: Dr. Vinay Murray M.D. on 08/24/2017 6:48 AM Dictated By: VINAY GUADALUPE MD E lectronically Signed By: VINAY GUADALUPE MD on 08/24/17647 Transcribed B y: KAREN on 08/24/17647 COPY TO: TOYIN CORONADO MD CT ABDOMEN/PELVIS WOW [place] [address] Patient Name: CARLTON ROSARIO MR #: [id number] : 1950 Age/Sex: 67/M Req #: [id number] Adm Physician: FOSTER GAINES MD Ordered by: CHINTAN HIGGINS MD Report #: [id number] Location: MED/SURG3 Room/Bed: [facility] Procedure: [id number] CT/CT AB DOMEN/PELVIS WOW Exam Date: 08/22/17 Exam Time: 2359 REPORT STATUS: Signed EXAM: CT Abdomen and Pelvis WITHOUT and WITH con trast INDICATION: Acute GI bleeding. COMPARISON: None. TECHNIQUE: Abdom en and pelvis were scanned utilizing a multidetector helical scanner from the lung base to the pubic symphysis before and after administration of IV contras t. Coronal and sagittal reformations were obtained. Routine protocol was perfo rmed. Scan was performed when during portal venous phase. IV CON TRAST: 150 mL of Isovue-370 ORAL CONTRAST: None RADI ATION DOSE: Total DLP: 1280.75 mGy*cm Estimated effective dose: ( DLP x 0.015 x size factor) mSv COMPLICATIONS: None FINDINGS: LINES and TUBES: None. LOWER THORAX: Small bilateral pleural effusion s. There are areas of interlobular septae thickening and groundglass opacities in the lung bases HEPATOBILIARY: The liver contour appears nodular No foc al hepatic lesions. No biliary ductal dilation. GALLBLADDER: No radio-op aque stones or sludge. No wall thickening. SPLEEN: Mild splenomegaly PANCREAS: No focal masses or ductal dilatation. ADRENALS: No adrenal nod ules KIDNEYS/URETERS: Kidneys enhance symmetrically. No hydronephrosis . No cystic or solid mass lesions. No stones. GI TRACT: No abnormal dist ention, wall thickening, or evidence of bowel obstruction. There are divertic rosemary within the colon without evidence of diverticulitis. Appendix is normal. PELVIC ORGANS/BLADDER: Unremarkable. LYMPH NODES: No lymphadenopathy. VESSELS: Large gastroesophageal varices are present with prominent varix at the gastric mucosa best seen on postcontrast examination series 6, image 35 w hich might represent the source of bleeding. Multiple splenorenal varices are present. Mild atherosclerotic disease of the thoracoabdominal aorta prese nt. PERITONEUM / RETROPERITONEUM: There is moderate of amount of free fluid in the abdomen and pelvis. BONES: There are mild degenerative changes in the lumbar spine. SOFT TISSUES: There is mild anarsarca. IMPRESSION: 1. 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 2. Diverticulosis without evidence of dive rticulitis. 3. Cirrhotic liver with evidence of portal hypertension demonstra ricardo by splenomegaly, ascites or pleural effusions and varices Signed by: Dr. Vinay Murray M.D. on 08/23/2017 1:57 AM Dictated By: VINAY JENSEN RA, MD 6 Trans cribed By: KAREN on 08/23/17156 COPY TO: CHINTAN HIGGINS MD CHEST SINGLE (PORTABLE) [place] [address] Patient Name: CARLTON ROSARIO MR #: [id number] : 1950 Age/Sex: 67/M Req #: [id number] Adm Physician: FOSTER GAINES MD Ordered by: TOYIN CORONADO MD Report #: [id number] Location: MED/SURG3 Room/Bed: [facility] Procedure: [id number] DX/ CHEST SINGLE (PORTABLE) Exam Date: 08/22/17 Exam Shay e: 0510 REPORT STATUS: Signed PROCEDURE: A single AP view of the ches t. COMPARISON: Portable chest 08/21/2017. INDICATIONS: SHORTNESS OF BREATH. CHF. POST EXTUBATION FINDINGS: Lines/tubes: Right internal j ugular temporary central venous catheter with tip projecting over the expecte d region of the superior vena cava. Lungs: Bilateral multifocal airspace o pacities. No parenchymal mass. Pleura: There is no pleural effusion or pn eumothorax. Heart and mediastinum: The heart and the mediastinum are unre markable. Bones: No acute bony abnormality. Degenerative changes of the t horacic spine. IMPRESSION: Bilateral multifocal airspace opaciti es may represent a developing pneumonia. Dictated by: Leelee Moreno on 08/22/2017 at 8:00 Electronically approved by: Mackenzie Adam M.D. on 08/22/2017 at 8:00 Dictated By: MACKENZIE ADAM MD Electronically Sig trice By: MACKENZIE ADAM MD on 08/22/17 08 Transcribed By: FELIX on 08/22/17 0800 COPY TO: TOYIN CORONADO MD CHEST SINGLE (PORTABLE) [place] [address] Patient Name: CARLTON ROSARIO MR #: [id number] : 1950 Age/Sex: 67/M Req #: [id number] Adm Physician: FOSTER ARGUETA MD Ordered by: TOYIN CORONADO MD Report #: [id number] Locatio n: MED/SURG3 Room/Bed: 295-1 Procedure: [id number] DX/ CHEST SINGLE (PORTABLE) Exam Date: 08/21/17 Exam Shay e: 529 REPORT STATUS: Signed EXAM: CHEST SINGLE (PORTABLE), AP 1 view ORDER DATE: 08/21/2017 5:00 AM Time stamp on exam: 0540 hours INDICATION: Pne umonia COMPARISON: AP view of the chest August 20, 2017 FINDINGS: LINE S/TUBES: Stable position right internal jugular vein central line. LUNGS: S table diffuse bilateral airspace opacities. PLEURA: No effusions or pneumo thorax. HEART AND MEDIASTINUM: Stable appearance. BONES AND SOFT TISSU ES: No acute findings. IMPRESSION: No interval change. Signed by: Dr. Israel Tracy M.D. on 08/21/2017 6:30 AM Dictated By: ISRAEL VIRGEN MD 9 Transcri bed By: KAREN on 08/21/17629 COPY TO: TOYIN CORONADO MD CHEST SINGLE (PORTABLE) [place] [address] Patient Name: CARLTON ROSARIO MR #: [id number] : 1950 Age/Sex: 67/M Req #: [id number] Adm Physician: FOSTER GAINES MD Ordered by: TOYIN CORONADO MD Report #: [id number] Location: ICU Room/Bed: ICU 195-1 Procedure: [id number] DX/CH EST SINGLE (PORTABLE) Exam Date: 08/20/17 Exam Time: 0525 REPORT STATUS: Signed EXAM: CHEST SINGLE (PORTABLE), AP 1 view ORDER DATE: 08/20/2017 5:00 AM Time stamp on exam: 0552 hours INDICATION: Pneum onia COMPARISON: AP view of the chest August 19, 2017 FINDINGS: LINES/ TUBES: Stable position of right internal jugular vein central line. Interval r emoval of the endotracheal tube. LUNGS: Stable bilateral airspace opacities . PLEURA: No effusions or pneumothorax. HEART AND MEDIASTINUM: Stable appearance BONES AND SOFT TISSUES: No acute findings. IMPRESSION: No interval change. Signed by: Dr. Israel Tracy M.D. on 6:26 AM Dictated By: ISRAEL TRACY MD 5 Transcribed By: KAREN on 08/20/17625 COPY TO: TOYIN CORONADO MD [place] [address] Patient Name: CARLTON ROSARIO MR #: [id number] : 1950 Age/Sex: 67/M Req #: [id number] [facility] Physician: FOSTER GAINES MD Ordered by: TOYIN CORONADO MD Report #: [id number] Location: ICU Room/Bed: ICU 195 Procedure: [id number] DX/AB DOMEN-1VIEW (KUB) Exam Date: Exam Time: REPO RT STATUS: Signed EXAM: Abdomen, one view INDICATION: Pain. COMP ARISON: None available. FINDINGS: LINES: Enteric feeding catheter wit h tip projecting over the expected region of the gastric fundus. Bowel: N o air fluid levels.. No pneumoperitoneum.. Moderate amount of retained fec es and air are noted in the colon and rectum. No calcifications project ove r the renal shadows, expected course of the ureters bilaterally, and bladder. Soft tissues: Normal. Bones: No acute osseous abnormality. Degen erative changes of the lumbar spine and pelvis. Impression: No acute r adiographic abnormality. Signed by: Dr. Mackenzie Adam M.D. on 08/19/2017 2:32 PM Dictated By: MACKENZIE ADAM MD 143 Transcribed By: KAREN on 08/19/17 1432 COPY TO: TOYIN BEY MD CHEST SINGLE (PORTABLE) [place] [address] Patient Name: CARLTON ROSARIO MR #: [id number] : 1950 Age/Sex: 67/M Req #: [id number] Adm Physician: FOSTER GAINES MD Ordered by: TOYIN CORONADO MD Report #: [id number] Location: ICU Room/Bed: [place] [address] Procedure: [id number] DX/CH EST SINGLE (PORTABLE) Exam Date: Exam Time: REPORT STATUS: Signed EXAM: CHEST SINGLE (PORTABLE), AP 1 view ORDER DATE: 08/19/2017 5:00 AM Time stamp on exam: 0557 hours INDICATION: Anemia COMPARIS ON: AP view of the chest August 18, 2017 FINDINGS: LINES/TUBES: Stable e ndotracheal tube, right internal jugular vein central line. LUNGS: Stable bilateral airspace opacities. PLEURA: No effusions or pneumothorax. HEART AND MEDIASTINUM: Stable BONES AND SOFT TISSUES: No acute findings. IMPRESSION: No interval change. Signed by: Dr. Israel villatoro M.D. on 08/19/2017 6:33 AM Dictated By: ISRAEL TRACY MD 2 Transcribed By: KAREN on 632 COPY TO: TOYIN CORONADO MD CHEST SINGLE (PORTABLE) [place] [address] Patient Name: CARLTON ROSARIO MR #: [id number] : Age/Sex: 67/M Req #: [id number] Adm Physician: FOSTER ARGUETA MD Ordered by: FOSTER GAINES MD Report #: [id number] Location: ICU Room/Bed: [place] [address] Procedure: [id number] DX/CHES T SINGLE (PORTABLE) Exam Date: 08/18/17 Exam Time: 0 600 REPORT STATUS: Signed EXAM: CHEST SINGLE (PORTABLE), AP 1 view OR CLAUDIA DATE: 08/18/2017 5:00 AM Time stamp on exam: 0602 hours INDICATION: Intubat ed COMPARISON: AP view of the chest August 17, 2017 FINDINGS: LINES/TU BES: Stable position of endotracheal tube and right internal jugular vein cent ral line. LUNGS: Stable diffuse bilateral airspace opacities. PLEURA: No effusions or pneumothorax. HEART AND MEDIASTINUM: Stable. BONES AND SOFT TISSUES: No acute findings. IMPRESSION: No interval change in exam. Signed by: Dr. Israel Tracy M.D. on 08/18/2017 7:06 AM Dictated By: ISRAEL TRACY MD 5 COPY TO: NEHA GAINES MD CHEST SINGLE (PORTABLE) [place] [address] Patient Name: CARLTON ROSARIO MR #: [id number] : 1950 Age/Sex: 67/M Req #: [id number] Adm Physician: FOSTER GAINES MD Ordered by: TOYIN CORONADO MD Report #: [id number] Location: ICU Room/Bed: ICU [facility] Procedure: [id number] DX/CH EST SINGLE (PORTABLE) Exam Date: 08/17/17 Exam Time: 0455 REPORT STATUS: Signed EXAM: CHEST SINGLE (PORTABLE), AP 1 view ORDER DATE: 08/17/2017 5:00 AM Time stamp on exam: 0515 hours INDICATION: CHF COMPARISON: AP view of the chest October 14, 2017 FINDINGS: LINES/TUBES: E ndotracheal tube terminates 3.2 cm above the [place]. Right internal jugular ve in central line terminates in expected location of the mid superior vena cava. LUNGS: Diffuse bilateral interstitial and alveolar opacities. PLEURA: No effusions or pneumothorax. HEART AND MEDIASTINUM: Stable enlargement of the cardiomediastinal silhouette. BONES AND SOFT TISSUES: No acute finding s. IMPRESSION: Interval placement of endotracheal tube and internal jugu lar vein central line. Otherwise, stable appearance of the chest with findings consistent with multifocal pneumonia. Signed by: Dr. Israel dee M.D. on 08/17/2017 5:35 AM Dictated By: ISRAEL TRACY MD Electronica lly Signed By: ISRAEL TRACY MD on 08/17/17534 Transcribed By: KAREN on 08/03 COPY TO: TOYIN CORONADO MD CHEST SINGLE (PORTABLE) [place] [address] Patient Name: CARLTON ROSARIO MR #: [id number] : Age/Sex: 67/M Req #: [id number] Adm Physician: FOSTER ARGUETA MD Ordered by: LAN HUERTA MD Report #: [id number] Locat ion: [facility] Room/Bed: [place] [address] Procedure: [id number] D X/CHEST SINGLE (PORTABLE) Exam Date: 08/16/17 Exam T carlos: 0920 REPORT STATUS: Signed PROCEDURE: CHEST SINGLE (PORTABLE) TECHNIQUE: Portable AP chest INDICATION: Intubation COMPARISON: [facility], DX, CHEST SINGLE (PORTABLE), 08/16/2017, 8:07. TRENAIN GS: See conclusion. CONCLUSION: 1. Endotracheal tube tip is 6 cm f rom the [place]. 2. Other findings are unchanged from 8:07 AM. Di ctated by: Mayra Lainez M.D. on 08/16/2017 at 10:20 Electronically approved by: Mayra Lainez M.D. on 08/16/2017 at 10:20 Dictated By: MAYRA LAINEZ MD 1020 COPY TO: LAN HUERTA MD CHEST SINGLE (PORTABLE) [place] [id number] [place] [address] Patient Name: CARLTON ROSARIO MR #: [id number] : 1950 Age/Sex: 67/M Req #: [id number] Adm Physician: FOSTER GAINES MD Ordered by: LAN HUERTA MD Report #: [id number] Location: [facility] Room/Bed: [place] [address] Procedure: [id number] D X/CHEST SINGLE (PORTABLE) Exam Date: 08/16/17 Exam T carlos: 0805 REPORT STATUS: Signed PROCEDURE: CHEST SINGLE (PORTABLE) TECHNIQUE: Portable AP chest INDICATION: Central line placement COMPARIS ON: [facility], DX, CHEST SINGLE (PORTABLE), 08/16/2017, 4:19. FINDINGS: See conclusion. CONCLUSION: 1. Right internal jugu lar central venous catheter tip about 7 cm from the atrial caval junction, te rminating in the upper SVC. 2. Bilateral airspace opacities consistent with pu lmonary edema increased from 4:19 AM. No evidence of pneumothorax. 3. No si zable pleural effusion. 4. Stable cardiomegaly. Dictated by: Angie Lainez M.D. on 08/16/2017 at 8:26 Electronically approved by: Mayra Lainez M.D. on 08/16/2017 at 8:26 Dictated By: PRISCA LAINEZ MD 5 Tr anscribed By: FELIX on 08/16/17825 COPY TO: LAN HUERTA MD CHEST SINGLE (PORTABLE) [place] [address] Patient Name: CARLTON ROSARIO MR #: [id number] : 1950 Age/Sex: 67/M Req #: [id number] Adm Physician: FOSTER GAINES MD Ordered by: YANNICK DESAI MD Report #: [id number] Location: [facility] Room/Bed: [place] [address] Procedure: [id number] DX/CH EST SINGLE (PORTABLE) Exam Date: Exam Time: REPORT STATUS: Signed EXAM: CHEST SINGLE (PORTABLE), AP 1 view ORDER DATE: 08/16/2017 4:10 AM Time stamp on exam: 0419 hours INDICATION: Worsening shortn ess of breath COMPARISON: CT of the chest August 16, 2017 FINDINGS: LI CONSTANCE/TUBES: None LUNGS: Bilateral reticulonodular changes and confluent airs pace opacities predominantly in the bilateral upper lungs and to a lesser exte nt the lung bases. PLEURA: No effusions or pneumothorax. HEART AND MEDIASTINUM: Mild cardiac enlargement. BONES AND SOFT TISSUES: No acute fin dings. IMPRESSION: Findings consistent with multifocal atypical infectio n. Signed by: Dr. Israel Tracy M.D. on 08/16/2017 4:32 AM Dictated By: ISRAEL TRACY MD 1 COPY TO: PAULA DESAI RD, MD CT CHEST [place] [address] Patient Name: CARLTON ROSARIO MR #: [id number] : 1950 Age/Sex: 67/M Req #: [id number] Adm Physician: FOSTER GAINES MD Ordered by: YANNICK DESAI MD Report #: [id number] Location: [facility] Room/Bed: [facility] Procedure: [id number] CT/CT CHEST W Exam Date: 08/16/17 Exam Time: 0029 R EPORT STATUS: Signed EXAM: CT CHEST W DATE: 08/16/2017 12:02 AM Time stamp on exam: 0033 hours INDICATION: Shortness of breath with positive d-dimer, ci rrhosis and ascites COMPARISON: None TECHNIQUE: Multidetector CT scanning o f the chest was performed. Coronal and sagittal multiplanar reformations were obtained. PE protocol performed. IV Contrast: 62 cc Isovue-370 CTDIvol has been reviewed. It is below the limits set by the Radiation Protocol Committee (RPC). FINDINGS: LUNGS AND AIRWAYS: The trachea and major bronchi are unr emarkable. Interstitial thickening and dense centrilobular groundglass opaciti es predominantly in the bilateral upper lobes and to a lesser extent the lung bases and middle lobe. PLEURA: Moderate layering pleural effusions bilat erally. HEART, MEDIASTINUM, VESSELS: The heart is mildly enlarged. Trace pe ricardial effusion. No mediastinal mass or lymphadenopathy. No thoracic aortic aneurysm. No evidence of a pulmonary embolism. UPPER ABDOMEN: Cirrhotic liver morphology, splenomegaly, moderate volume ascites and splenic varices. MUSCULOSKELETAL: No acute findings. IMPRESSION: 1. No evidence of a pulmonary embolism. 2. Lung findings likely represent endobronchial spread of atypical infection. The differential diagnosis includes hypersensitivity pneumonitis. 3. Cirrhosis with portal hypertension, moderate volume ascite s in the upper abdomen and moderate bilateral layering pleural effusions. Signed by: Dr. Israel Tracy M.D. on 08/16/2017 1:11 AM Dictat ed By: ISRAEL TRACY MD 0111 Transcribed By: KAREN on 08/16/17110 COPY TO: YANNICK DESAI MD CHEST SINGLE (PORTABLE) [place] [address] Patient Name: CARLTON ROSARIO MR #: [id number] : 1950 Age/Sex: 67/M Req #: [id number] Adm Physician: Ordered by: RAGHAVENDRA BRITO MANAGER RESPIRATORY Report #: [id number] Location: ER Room/Bed: Procedure: [id number] DX/CHEST SINGLE (PORTABLE) Exa m Date: 08/15/17 Exam Time: 1830 REPORT STATUS: Signed PROCEDURE: A single AP view of the chest. COMPARISON: None. INDICATIONS: SHORT OF BREATH FINDINGS: Lines/tubes: None. Lungs: Lungs are well-inflated. Diffuse interstitial opacities extending from the bailee, predominantly involving the left lung, and to a lesser degree, the right lower lung. No consolidation. Pleura: There is no pleural effusion or pneumothorax. Heart and mediastinum: Enlarged cardiac silhouette. Nik tral pulmonary venous congestion. Bones: No acute bony abnormality. IMPRESSION: 1. findings may represent interstitial pulmonary edema/de compensated CHF. Atypical pneumonia/ infection is a consideration, in the appropriate clinical setting Ismael Orellana M.D. Dictated by: Ismael Orellaan M.D. on 08/15/2017 at 19:00 Electronically approved b y: Ismael Orellana M.D. on 08/15/2017 at 19:00 Dictated By: ISMAEL ORELLANA MD 99 Transcribed By: FELIX on 08/15/171899 COPY TO: SHORT,RAGHAVENDRA D MANAGER RESPIRATORY US ABDOMEN COMPLETE [facility] [address] [place] [address] Patient Name: CARLTON ROSARIO MR #: [id number] : 1950 Age/Sex: 67/M Req #: [id number] Adm Physician: FOSTER GAINES MD Ordered by: YANNICK DESAI MD Report #: [id number] Location: [facility] Room/Bed: [place] [address] Procedure: [id number] US/US ABDOMEN COMPLETE Exam Date: 08/15/17 Exam Time: 2245 REPORT STATUS: Signed EXAM: US ABDOMEN COMPLETE DATE: 08/15/2017 12:00 AM Time stamp on exam: 2245 hours INDICATION: Cirrhosis COMPARISON: None TECHNIQUE: Transverse and longitudinal avery scale and color doppler sonogr aphic images of the upper abdomen were obtained. FINDINGS: LIVER 13.3 cm in the right midclavicular line. Cirrhotic liver morphology. SP ALBINA 13.2 cm in maximum diameter. Normal echogenicity, no masses. GALLB LADDER No gallstones. Mild wall thickening likely related to portal hypertensi on. Negative sonographic Gardner's sign. BILE DUCTS No intra nor extra-h epatic biliary dilation. Common bile duct measures 0.3 cm PANCREAS: Obscu red by bowel gas RIGHT KIDNEY: 11.5 x 6 x 6.1 cm Echogenicity: Normal C ollecting System: No hydronephrosis Stones: None Cyst/Mass: None LEFT KIDNEY: 11 x 5.8 x 5.8 cm Echogenicity: Normal Collecting System: No hydro nephrosis Stones: None Cyst/Mass: None VESSELS: Aorta: Poorly visual ized secondary to bowel gas Inferior Vena Cava: Poorly visualized secondary to bowel gas Main Portal Vein: 0.9 cm, normal size with hepatopetal flow. F REE FLUID: Partially visualized right pleural effusion and moderate volume asc ites right upper quadrant. IMPRESSION: Cirrhosis with portal hypertension and moderate volume ascites in the right upper quadrant. Signed by: Dr. Israel Tracy M.D. on 08/15/2017 11:31 PM Dictated By: ISRAEL TRACY MD 30 Transcribed By: KAREN on 08/15/172330 COPY TO: YANNICK DESAI MD
--- NOTE | 2019-12-05 13:29 | Emergency Department Note ---
History of Present Illnes History of Present Illness History of Present Illness This is a 69 year old male arrived to the ED by EMS at the instance of her sister. Pt states his sister says he's not been himself, has been unsteady on his feet. Pt states has been feeling dizzy and weak but doesn't recall "passing out" presented to ed via ems for poss stroke like sx Arrival Mode: ems Onset (how long ago): day(s) (today) Radiation: non-radiation, back, neck, extremity, abdomen, periumbilical, flank, proximal, distal, other Onset quality: sudden Duration (how long): day(s) (today ) Timing of current episode: constant Progression: improving Context: recent illness, recent surgery, recent immobilization, recent travel, trauma/injury, new medications, hx of DVT/PE, non-compliance w/ medications, other Relieving factors: none Exacerbating factors: none Treatments prior to arrival: none Past Medical/Family History Physician Review I have reviewed the patient's past medical and family history. Any updates have been documented here. Past Medical History Recent Fever: No Clinical Suspicion of Infectio: No Past Medical History: Liver Disease, GERD Other Medical History: Hep C-Harvoni treatment CIRRHOSIS OF LIVER BPH Other Surgery: EGD Social History Smoking Cessation: Never Smoker Any Illegal Drug Use: No TB Exposure/Symptoms: No Family History Family history of heart diseas: No Other Last Tetanus: UTD Any Pre-Existing Lines (PICC,: No Review of Systems Review of Systems Constitutional: no symptoms EENTM: no symptoms Cardiovascular: no symptoms Respiratory: no symptoms Gastrointestinal: no symptoms Genitourinary: no symptoms Musculoskeletal: no symptoms Neurological: other (near syncope after standing up) Psychological: no symptoms Endocrine: no symptoms Hematological/Lymphatic: no symptoms Review of other systems All other systems reviewed and negative. Physical Exam Related Data Allergies: Coded Allergies: Penicillins (Verified Allergy, Unknown, 08/23/17) codeine (Verified Allergy, Unknown, rash, 08/15/17) Vital signs reviewed: Yes Physical Exam CONSTITUTIONAL Constitutional: well-developed, well-nourished HENT HENT: normocephalic, atraumatic, oropharynx clear/moist, nose normal HENT L/R: left ext ear normal, right ext ear normal EYES Eyes: PERRL, conjunctivae normal NECK Neck: ROM normal PULMONARY Pulmonary: effort normal, breath sounds normal CARDIOVASCULAR Cardiovascular: regular rhythm, heart sounds normal, capillary refill normal, normal rate GASTROINTESTINAL Abdominal: soft, nontender, bowel sounds normal GENITOURINARY Genitourinary: exam deferred SKIN Skin: warm, dry MUSCULOSKELETAL Musculoskeletal: ROM normal NEUROLOGICAL Neurological: alert, oriented x 3, no gross motor or sensory deficits, other (reports near syncope episode after standing up x 1 episode sister called ems ); cranial nerve deficit, sensory deficit, abnormal DTRs, abnormal coordination, abnormal gait, weakness PSYCHOLOGICAL Results Laboratory Laboratory Laboratory Tests Test 12/05/19 14:00 White Blood Count 4.77 x10e3/uL (4.8-10.8) Red Blood Count 2.30 x10e6/uL (4.3-5.7) Hemoglobin 4.6 g/dL (14.0-18.0) Hematocrit 16.8 % (38.2-49.6) Mean Corpuscular Volume 73.0 fL (81-99) Mean Corpuscular Hemoglobin 20.0 pg (28-32) Mean Corpuscular Hemoglobin Concent 27.4 g/dL (31-35) Red Cell Distribution Width 18.5 % (11.7-14.4) Platelet Count 75 x10e3/uL (140-360) Neutrophils (%) (Auto) 72.0 % (38.7-80.0) Lymphocytes (%) (Auto) 11.1 % (18.0-39.1) Monocytes (%) (Auto) 15.1 % (4.4-11.3) Eosinophils (%) (Auto) 0.6 % (0.0-6.0) Basophils (%) (Auto) 0.4 % (0.0-1.0) Neutrophils # (Auto) 3.4 (2.1-6.9) Lymphocytes # (Auto) 0.5 (1.0-3.2) Monocytes # (Auto) 0.7 (0.2-0.8) Eosinophils # (Auto) 0.0 (0.0-0.4) Basophils # (Auto) 0.0 (0.0-0.1) Absolute Immature Granulocyte (auto 0.04 x10e3/uL (0-0.1) Prothrombin Time 17.8 seconds (11.9-14.5) Prothromb Time International Ratio 1.37 Activated Partial Thromboplast Time 35.5 seconds (23.8-35.5) Sodium Level 137 mmol/L (136-145) Potassium Level 3.7 mmol/L (3.5-5.1) Chloride Level 111 mmol/L (98-107) Carbon Dioxide Level 20 mmol/L (22-29) Anion Gap 9.7 mmol/L (8-16) Blood Urea Nitrogen 12 mg/dL (7-26) Creatinine 0.84 mg/dL (0.72-1.25) Estimat Glomerular Filtration Rate > 60 ML/MIN (60-) BUN/Creatinine Ratio 14 (6-25) Glucose Level 132 mg/dL (74-118) Calcium Level 7.6 mg/dL (8.4-10.2) Total Bilirubin 0.8 mg/dL (0.2-1.2) Aspartate Amino Transf (AST/SGOT) 38 IU/L (5-34) Alanine Aminotransferase (ALT/SGPT) 21 IU/L (0-55) Alkaline Phosphatase 85 IU/L (40-150) Creatine Kinase 212 IU/L (30-200) Creatine Kinase MB 1.80 ng/mL (0-5.0) Troponin I 0.046 ng/mL (0-0.300) B-Type Natriuretic Peptide 227.9 pg/mL (0-100) Total Protein 5.8 g/dL (6.5-8.1) Albumin 2.4 g/dL (3.5-5.0) Globulin 3.4 g/dL (2.3-3.5) Albumin/Globulin Ratio 0.7 (0.8-2.0) Thyroid Stimulating Hormone (TSH) 4.193 uIU/mL (0.350-4.940) Laboratory Tests Test 12/05/19 14:00 White Blood Count 4.77 x10e3/uL (4.8-10.8) Red Blood Count 2.30 x10e6/uL (4.3-5.7) Hemoglobin 4.6 g/dL (14.0-18.0) Hematocrit 16.8 % (38.2-49.6) Mean Corpuscular Volume 73.0 fL (81-99) Mean Corpuscular Hemoglobin 20.0 pg (28-32) Mean Corpuscular Hemoglobin Concent 27.4 g/dL (31-35) Red Cell Distribution Width 18.5 % (11.7-14.4) Platelet Count 75 x10e3/uL (140-360) Neutrophils (%) (Auto) 72.0 % (38.7-80.0) Lymphocytes (%) (Auto) 11.1 % (18.0-39.1) Monocytes (%) (Auto) 15.1 % (4.4-11.3) Eosinophils (%) (Auto) 0.6 % (0.0-6.0) Basophils (%) (Auto) 0.4 % (0.0-1.0) Neutrophils # (Auto) 3.4 (2.1-6.9) Lymphocytes # (Auto) 0.5 (1.0-3.2) Monocytes # (Auto) 0.7 (0.2-0.8) Eosinophils # (Auto) 0.0 (0.0-0.4) Basophils # (Auto) 0.0 (0.0-0.1) Absolute Immature Granulocyte (auto 0.04 x10e3/uL (0-0.1) Laboratory Tests Test 12/05/19 14:00 White Blood Count 4.77 x10e3/uL (4.8-10.8) Red Blood Count 2.30 x10e6/uL (4.3-5.7) Hemoglobin 4.6 g/dL (14.0-18.0) Hematocrit 16.8 % (38.2-49.6) Mean Corpuscular Volume 73.0 fL (81-99) Mean Corpuscular Hemoglobin 20.0 pg (28-32) Mean Corpuscular Hemoglobin Concent 27.4 g/dL (31-35) Red Cell Distribution Width 18.5 % (11.7-14.4) Platelet Count 75 x10e3/uL (140-360) Neutrophils (%) (Auto) 72.0 % (38.7-80.0) Lymphocytes (%) (Auto) 11.1 % (18.0-39.1) Monocytes (%) (Auto) 15.1 % (4.4-11.3) Eosinophils (%) (Auto) 0.6 % (0.0-6.0) Basophils (%) (Auto) 0.4 % (0.0-1.0) Neutrophils # (Auto) 3.4 (2.1-6.9) Lymphocytes # (Auto) 0.5 (1.0-3.2) Monocytes # (Auto) 0.7 (0.2-0.8) Eosinophils # (Auto) 0.0 (0.0-0.4) Basophils # (Auto) 0.0 (0.0-0.1) Absolute Immature Granulocyte (auto 0.04 x10e3/uL (0-0.1) Lab results reviewed: Yes Imaging Impressions Procedure: [id number] DX/CHEST SINGLE (PORTABLE) Exam Date: 12/05/19 Exam Time: 1346 REPORT STATUS: Signed X-ray chest frontal view History: Syncope Comparison: 08/24/2017 Findings: Poor inspiratory effort. Central airways unremarkable. Possible cardiomegaly. Atherosclerotic aorta. No definite pleural effusion. No pneumothorax. Bilateral interstitial prominence in the form of linear markings and peribronchial thickening. This is especially pronounced in bilateral lower lung zones. Regional bones and upper abdomen unremarkable. Impression: Bilateral interstitial type of pulmonary opacities which could represent atypical pulmonary edema or infection and/or inflammation. These are improved compared with the previous exam but that was over 2 years ago. Clinical correlation is requested. Signed by: Sofia Ennis MD on 12/05/2019 2:16 PM Dictated By: SOFIA ENNIS MD 1416 Transcribed By: KAREN on 12/05/19 1416 Procedure: [id number] CT/CT BRAIN WO Exam Date: 12/05/19 Exam Time: 1346 REPORT STATUS: Signed Examination: CT head without contrast Clinical Indication: Near syncope. Technique: Transaxial noncontrast images from the skull base through the vertex were obtained. Sagittal and coronal reformatted images were done. Dose modulation, iterative reconstruction, and/or weight based adjustment of the mA/kV was utilized to reduce the radiation dose to as low as reasonably achievable. Comparison: Head CT performed February 12, 2018. Findings: Scalp: No abnormalities. Bones: Intact. No fractures. No blastic or lytic lesions. Brain sulci: Mild volume loss for patient's age. Ventricles: No hydrocephalus. Extra-axial space: No abnormalities. Parenchyma: Again demonstrated are confluent areas of low-attenuation within subcortical and periventricular white matter, nonspecific, but could represent microvascular ischemic disease. No masses, hemorrhage, or acute or chronic cortical based vascular insults. Suprasellar region: No abnormalities. Craniocervical junction: The foramen magnum is patent. No Chiari one malformation. Incidental findings: Atherosclerotic calcification of the cavernous and supraclinoid internal carotid arteries. Impression: 1. No acute intracranial finding. No change from prior head CT dated 02/12/2018. 2. Unchanged chronic microvascular ischemic change and volume loss. Signed by: Dr. Bhakti Luo M.D. on 12/05/2019 2:12 PM Dictated By: BHAKTI GUERRERO MD 1412 Transcribed By: KAREN on 12/05/19 141 Procedures 12 Lead ECG Interpretation Spray Applicator: Interpreted by ED physician (Leti) Date: December 05, 2019 Time: 13:28 Prior C[employer]KE [employer] tracings: reviewed Rhythm: sinus rhythm Rate: normal BPM: 88 QRS axis: left Clinical Impression: normal ECG Critical Care Time Total Critical Care Time (min): 35 Critical care time exclusive o: separately billable procedures Subsequent provider I assumed direction of critical care for this patient from another provider of my specialty. Comments Pt symptomatic anemia- required cardiac monitoring Assessment & Plan Reassessment Reassessment time: 13:28 Reassessment 69y m presented to ed c/o near syncope after standing up - denies clemons dizziness cp sob n/v/d - lab ekg cxr ordered h&H low 4.6/16.8 type and screen ordered and 2 units PRBC ordered to give Assessment & Plan Final Impression: (1) Anemia (2) Near syncope Assessment & Plan discussed lab results plan of care and need for admit spoke w/ Dr Shields will admit Depart Disposition: ADMITTED Home Meds Reported Medications Lidocaine Hcl (LIDOCAINE HCL) 50 Ml Btl, 1 APPLIC TOP TID, BOTTLE 02/12/18 Tamsulosin Hcl (TAMSULOSIN HCL) 0.4 Mg Cap.er.24h, 0.4 MG PO DAILY 02/12/18 Spironolactone (SPIRONOLACTONE) 25 Mg Tablet, 50 MG PO DAILY, #60 TAB 02/12/18 Pantoprazole Sodium* (PROTONIX) 40 Mg Tablet.dr, 40 MG PO DAILY, TAB 02/12/18 Lactulose (LACTULOSE) 20 Gm/30 Ml Solution, 60 ML PO QID, EACH 02/12/18 COURTNEY COLON DO December 05, 2019 13:29
--- NOTE | 2019-12-05 14:15 | Diagnostic Imaging Report ---
Examination: CT head without contrast Clinical Indication: Near syncope. Technique: Transaxial noncontrast images from the skull base through the vertex were obtained. Sagittal and coronal reformatted images were done. Dose modulation, iterative reconstruction, and/or weight based adjustment of the mA/kV was utilized to reduce the radiation dose to as low as reasonably achievable. Comparison: Head CT performed February 12, 2018. Findings: Scalp: No abnormalities. Bones: Intact. No fractures. No blastic or lytic lesions. Brain sulci: Mild volume loss for patient's age. Ventricles: No hydrocephalus. Extra-axial space: No abnormalities. Parenchyma: Again demonstrated are confluent areas of low-attenuation within subcortical and periventricular white matter, nonspecific, but could represent microvascular ischemic disease. No masses, hemorrhage, or acute or chronic cortical based vascular insults. Suprasellar region: No abnormalities. Craniocervical junction: The foramen magnum is patent. No Chiari one malformation. Incidental findings: Atherosclerotic calcification of the cavernous and supraclinoid internal carotid arteries. Impression: 1. No acute intracranial finding. No change from prior head CT dated 02/12/2018. 2. Unchanged chronic microvascular ischemic change and volume loss. Signed by: Dr. Bhakti Luo M.D. on 12/05/2019 2:12 PM
--- NOTE | 2019-12-05 14:19 | Diagnostic Imaging Report ---
X-ray chest frontal view History: Syncope Comparison: 08/24/2017 Findings: Poor inspiratory effort. Central airways unremarkable. Possible cardiomegaly. Atherosclerotic aorta. No definite pleural effusion. No pneumothorax. Bilateral interstitial prominence in the form of linear markings and peribronchial thickening. This is especially pronounced in bilateral lower lung zones. Regional bones and upper abdomen unremarkable. Impression: Bilateral interstitial type of pulmonary opacities which could represent atypical pulmonary edema or infection and/or inflammation. These are improved compared with the previous exam but that was over 2 years ago. Clinical correlation is requested. Signed by: Ravin Wang MD on 12/05/2019 2:16 PM
[2019-12-05 14:31] LABS: BASOPHILS % 0.4 % (0.0-1.0); EOSINOPHILS % 0.6 % (0.0-6.0); LYMPHOCYTES # (AUTO) 0.5 (1.0-3.2); LYMPHOCYTES % 11.1 % (18.0-39.1); MEAN CORPUSCULAR HGB CONC 27.4 g/dL (31-35); MONOCYTES # (AUTO) 0.7 (0.2-0.8); MONOCYTES % 15.1 % (4.4-11.3); NEUTROPHILS # (AUTO) 3.4 (2.1-6.9); PLATELET COUNT 75 x10e3/uL (140-360); RED CELL DISTRIBUTION WIDTH 18.5 % (11.7-14.4)
[2019-12-05 14:42] LABS: HEMATOCRIT 16.8 % (38.2-49.6); HEMOGLOBIN 4.6 g/dL (14.0-18.0)
[2019-12-05] MEDS ORDERED: SODIUM CHLORIDE 0.9% 250ML 250 ML IV ONE (14:45)
[2019-12-05 14:58] LABS: ALANINE AMINOTRANSFERASE 21 IU/L (0-55); ALBUMIN 2.4 g/dL (3.5-5.0); ALBUMIN/GLOBULIN RATIO 0.7 (0.8-2.0); ALKALINE PHOSPHATASE 85 IU/L (40-150); ANION GAP 9.7 mmol/L (8-16); BLOOD UREA NITROGEN 12 mg/dL (7-26); BUN/CREATININE RATIO 14 (6-25); CALCIUM 7.6 mg/dL (8.4-10.2); CARBON DIOXIDE 20 mmol/L (22-29); CHLORIDE 111 mmol/L (98-107); CREATINE KINASE 212 IU/L (30-200); CREATININE, SERUM 0.84 mg/dL (0.72-1.25); EST GLOMERULAR FILTRATION RATE > 60 ML/MIN (60-); GLUCOSE 132 mg/dL (74-118); INR 1.37; POTASSIUM 3.7 mmol/L (3.5-5.1); PROTHROMBIN TIME 17.8 seconds (11.9-14.5); SODIUM 137 mmol/L (136-145)
[2019-12-05 14:59] LABS: PARTIAL THROMBOPLASTIN TIME 35.5 seconds (23.8-35.5)
[2019-12-05 15:23] LABS: THYROID STIMULATING HORMONE 4.193 uIU/mL (0.350-4.940)
--- OUTSIDE RECORDS SUMMARY | 2019-12-05 15:43 | XMS REPORT ---
Author Author [facility] t Organization [facility] Address [address] [place] [address] Phone Unavailable Care Team Providers Care E Commerce Project Manager Name Role Phone NONSTAFF PCP Unavailable Rebeca COLON Attphys Unavailable Lani ROMERO YICHING Attphys Unavailable FOSTER GAINES Attphys Unavailable CROOMS, RUTHANN JAMISE Attphys Unavailable Lani ROMERO YICHING Admphys Unavailable KILLFOSTER FLORES Admphys Unavailable CROOMS, RUTHANN JAMISE Admphys Unavailable Payers Payer Name Policy Type Policy Number Effective Date Expiration Date Rebeca french [employer] Medicare Advantage [id number] 2016 00:0 0:[address] [facility] [employer] Medicare Advantage [id number] 2016 00:0 0:00 [facility] Problems Condition Name Condition Details Condition Category Status Onset Date Resolution Date Last Treatment Date Treating Clinician Comments Source Anemia Anemia Problem Active [facility] Ascites Ascites Problem Active [facility] Hepatic cirrhosis Cirrhosis Problem Active [facility] Pneumonia Pneumonia Problem Active [facility] Upper gastrointestinal hemorrhage Upper GI bleed Problem Active [facility] Coagulation disorder Coagulopathy Problem Active [facility] Gastrointestinal hemorrhage GI bleed Problem Active [facility] Hepatic encephalopathy Hepatic encephalopathy Problem Active [facility] Rhabdomyolysis Rhabdomyolysis Problem Active [facility] Retention of urine Urinary retention Problem Active [facility] Allergies, Adverse Reactions, Alerts Allergy Name Allergy Type Status Severity Reaction(s) Onset Date Inacti ve Date Treating Clinician Comments Source Penicillin Allergy to Substance Active Unknown 2017-08-23 00:00:00 [facility] Codeine Allergy to Substance Active Unknown rash 2017-08-15 00:00:00 [facility] Medications Ordered Medication Name Filled Medication Name Start Date Stop Da te Current Medication? Ordering Clinician Indication Dosage Frequency Signature (SIG) Comments Components Source Lactulose 20 Gm/30 Ml Solution Lactulose 20 Gm/30 Ml Solution Yes 60 Four Times Daily [facility] Lidocaine Hcl 50 Ml Btl Lidocaine Hcl 50 Ml Btl Yes 1 Three Times A Day [facility] Pantoprazole Sodium (Protonix) 40 Mg Tablet. Pantopr azole Sodium (Protonix) 40 Mg Tablet. Yes 40 Daily [facility] Spironolactone 25 Mg Tablet Spironolactone 25 Mg Tablet Yes 50 Daily [facility] Tamsulosin Hcl 0.4 Mg Cap.er.24h Tamsulosin Hcl 0.4 Mg Cap.er.24h Yes .4 Daily [facility] Acetaminophen With Codeine (Tylenol With Codeine #3 Tablet) 1 Each Tablet, 300 Mg Oral Acetaminophen With Codeine (Tylenol With Codeine #3 Tablet) 1 Each Tablet, 300 Mg Oral 2018 00:00:00 No 300 Every 4 Hours as needed for Pain [facility] Ciprofloxacin Hcl (Cipro) 500 Mg Tablet, 500 Mg Oral C iprofloxacin Hcl (Cipro) 500 Mg Tablet, 500 Mg Oral 2018 00:00:00 No 500 Daily [facility] Ondansetron (Zofran Odt) 4 Mg Tab.rapdis, 4 Mg Oral On dansetron (Zofran Odt) 4 Mg Tab.rapdis, 4 Mg Oral 2018 00:00:00 No 4 Every 6 Hours as needed for Nausea [facility] Procedures Procedure Date / Time Performed Performing Clinician [facility] e X-ray of chest, two views 2018-02-14 00:00:00 TOYIN CORONADO [facility] Computed tomography of brain without radiopaque contrast 201 02-20-30 00:00:00 YANNICK DESAI [facility] X-ray of chest, two views 2018 00:00:00 YANNICK DESAI [facility] FLUOROSCOPY OF BLADDER AND URETHRA USING L OSM CONTRAST 2017 00:00:00 [facility] Computed tomography of abdomen and pelvis without then with contrast 2017-08-22 00:00:00 [facility] TRANSFUSE NONAUT FROZEN PLASMA IN PERIP ART, OPEN 5 00:00:00 [facility] INSPECTION OF UPPER INTESTINAL TRACT, ENDO 2017-08-17 00:00:00 H PARTH COYLE [facility] Computed tomography of chest with contrast 2017-08-16 00:00:00 YANNICK FLORES [facility] US abdomen complete 2017-08-15 00:00:00 FORDSYANNICK [facility] RESPIRATORY VENTILATION, 24-96 CONSECUTIVE HOURS 2017-08-15 00:00:00 BHUPENDRA SARMIENTO [facility] TRANSFUSE NONAUT RED BLOOD CELLS IN PERIPH ART, OPEN 2017-07 00:00:00 FORDSYANNICK [facility] INSERTION OF ENDOTRACHEAL AIRWAY INTO TRACHEA, VIA OPENING 2 00:00:00 PAULA DESAIGABBY A [facility] Encounters Start Date/Time End Date/Time Encounter Type [facility] ID Source 2018-02-13 00:59:00 2018-02-18 15:30:00 Discharged Inpatient [address] [facility] [id number] [facility] 2017-08-15 23:20:00 2017-08-29 15:16:00 Discharged Inpatient ER FOSTER GAINES [facility] [id number] [facility] Results Test Description Test Time Test Comments Results Result Comments Source CHEST SINGLE (PORTABLE) 2019-12-05 14:13:00 [facility] [address] [place] [address] Patient Name: CARLTON ROSARIO MR #: [id number] : 1950 Age/Sex: 69/M Req #: [id number] Adm Physician: Ordered by: COURTNEY COLON DO Report #: [id number] Location: ER Room/Bed: Procedure: [id number] DX/CHEST SINGLE (PORTABLE) Exam Date: 12/05/19 Exam Time: 1346 REPORT STATUS: Signed X-ray chest frontal view History: Syncope Comparison: 08/24/2017 Findings: Poor inspiratory effort. Central airways unremarkable. Possible cardiomegaly. Atherosclerotic aorta. No definite pleural effusion. No pneumothorax. Bilateral interstitial prominence in the form of linear markings and peribronchial thickening. This is especially pronounced in bilateral lower lung zones. Regional bones and upper abdomen unremarkable. Impression: Bilateral interstitial type of pulmonary opacities which could represent atypical pulmonary edema or infection and/or inflammation. These are improved compared with the previous exam but that was over 2 years ago. Clinical correlation is requested. Signed by: Ravin Ennis MD on 12/05/2019 2:16 PM Dictated By: RAVIN ENNIS MD 15 Transcribed By: KAREN on 12/05/191415 COPY TO: COURTNEY COLON DO CT BRAIN WO 2019-12-05 14:01:00 [place] [address] Patient Name: CARLTON ROSARIO MR #: [id number] : 1950 Age/Sex: 69/M Req #: [id number] Adm Physician: Ordered by: COURTNEY COLON DO Report #: [id number] Location: ER Room/Bed: Procedure: [id number] CT/CT BRAIN WO Exam Date: 12/05/19 Exam Time: 1346 REPORT STATUS: Signed Examination: CT head without contrast Clinical Indication: Near syncope. Technique: Transaxial noncontrast images from the skull base through the vertex were obtained. Sagittal and coronal reformatted images were done. Dose modulation, iterative reconstruction, and/or weight based adjustment of the mA/kV was utilized to reduce the radiation dose to as low as reasonably achievable. Comparison: Head CT performed 2018. Findings: Scalp: No abnormalities. Bones: Intact. No fractures. No blastic or lytic lesions. Brain sulci: Mild volume loss for patient's age. Ventricles: No hydrocephalus. Extra-axial space: No abnormalities. Parenchyma: Again demonstrated are confluent areas of low-attenuation within subcortical and periventricular white matter, nonspecific, but could represent microvascular ischemic disease. No masses, hemorrhage, or acute or chronic cortical based vascular insults. Suprasellar region: No abnormalities. Craniocervical junction: The foramen magnum is patent. No Chiari one mal formation. Incidental findings: Atherosclerotic calcification of the cavernous and supraclinoid internal carotid arteries. Impression: 1. No acute intracranial finding. No change from prior head CT dated 2018. 2. Unchanged chronic microvascular ischemic change and volume loss. Signed by: Dr. Emani Luo M.D. on 12/05/2019 2:12 PM Dictated By: EMANI GUERRERO MD 1412 Transcribed By: KAREN on 12/05/19 1412 COPY TO: COURTNEY COLON DO Blood Culture 2018-02-17 21:23:00 Test Item Blood Culture (test code = 21033797) NO GROWTH AFTER 5 DAYS, FINAL REPORT [facility] HospitalWhite Blood Qmynk9524-16-32 19:50:00* Test Item Value Reference Range Interpretation Comments White Blood Count (test code = 6690-2) 5.60 4.8-10.8 [facility] HospitalRed Blood Dxpcx3905-73-37 19:50:00* Test Item Value Reference Range Interpretation Comments Red Blood Count (test code = 789-8) 3.64 4.3-5.7 [facility] HospitalHemoglobin2018-08-03 19:50:00* Test Item Value Reference Range Interpretation Comments Hemoglobin (test code = 90527-6) 9.8 14.0-18.0 [facility] HospitalHematocrit2018-08-03 19:50:00* Test Item Value Reference Range Interpretation Comments Hematocrit (test code = 4544-3) 30.2 38.2-49.6 [facility] HospitalMean Corpuscular Tlwial0367-80-96 19:50:00* Test Item Value Reference Range Interpretation Comments Mean Corpuscular Volume (test code = 787-2) 83.0 81-99 [facility] HospitalMean Corpuscular Qikhzdxokj4092-56-30 19:50:00* Test Item Value Reference Range Interpretation Comments Mean Corpuscular Hemoglobin (test code = 785-6) 26.9 28-32 [facility] HospitalMean Corpuscular Hemoglobin Concent 2018-02-16 19:50:00* Test Item Value Reference Range Interpretation Comments Mean Corpuscular Hemoglobin Concent (test code = 786-4) 32.5 31-35 [facility] HospitalRed Cell Distribution Aheqr2435-55-20 19:50:00* Test Item Value Reference Range Interpretation Comments Red Cell Distribution Width (test code = 96714-7) 20.5 11.7 -14.4 [facility] HospitalPlatelet Krvym7803-40-75 19:50:00* Test Item Value Reference Range Interpretation Comments Platelet Count (test code = 777-3) 84 140-360 NO CLOT DETECTED [facility] HospitalNeutrophils (%) (Auto) 2018-02-16 19:50:00* Test Item Value Reference Range Interpretation Comments Neutrophils (%) (Auto) (test code = 64647-6) 48.4 38.7-80.0 [facility] HospitalLymphocytes (%) (Auto)2018-02-16 19:50:00 * Test Item Value Reference Range Interpretation Comments Lymphocytes (%) (Auto) (test code = 736-9) 24.3 18.0-39.1 [facility] HospitalMonocytes (%) (Auto)2018-02-16 19:50:00* Test Item Value Reference Range Interpretation Comments Monocytes (%) (Auto) (test code = 5905-5) 21.1 4.4-11.3 [facility] HospitalEosinophils (%) (Auto)2018-02-16 19:50:00 * Test Item Value Reference Range Interpretation Comments Eosinophils (%) (Auto) (test code = 713-8) 5.4 0.0-6.0 [facility] HospitalBasophils (%) (Auto)2018-02-16 19:50:00* Test Item Value Reference Range Interpretation Comments Basophils (%) (Auto) (test code = 706-2) 0.4 0.0-1.0 [facility] HospitalIM GRANULOCYTES %2018-02-16 19:50:00* Test Item Value Reference Range Interpretation Comments IM GRANULOCYTES % (test code = IM GRANULOCYTES %) 0.4 0.0- 1.0 [facility] HospitalNeutrophils # (Auto)2018-02-16 19:50:00* Test Item Value Reference Range Interpretation Comments Neutrophils # (Auto) (test code = 751-8) 2.7 2.1-6.9 [facility] HospitalLymphocytes # (Auto)2018-02-16 19:50:00* Test Item Value Reference Range Interpretation Comments Lymphocytes # (Auto) (test code = 45810-1) 1.4 1.0-3.2 [facility] HospitalMonocytes # (Auto)2018-02-16 19:50:00* Test Item Value Reference Range Interpretation Comments Monocytes # (Auto) (test code = 742-7) 1.2 0.2-0.8 [facility] HospitalEosinophils # (Auto)2018-02-16 19:50:00* Test Item Value Reference Range Interpretation Comments Eosinophils # (Auto) (test code = 711-2) 0.3 0.0-0.4 [facility] HospitalBasophils # (Auto)2018-02-16 19:50:00* Test Item Value Reference Range Interpretation Comments Basophils # (Auto) (test code = 704-7) 0.0 0.0-0.1 [facility] HospitalAbsolute Immature Granulocyte (auto 2018-02-16 19:50:00* Test Item Value Reference Range Interpretation Comments Absolute Immature Granulocyte (auto (eb t code = Absolute Immature Granulocyte (auto) 0.02 0-0.1 [facility] HospitalDifferential Total Cells Counted 2018-02-16 17:03:00* Test Item Value Reference Range Interpretation Comments Differential Total Cells Counted (test code = Differen tial Total Cells Counted) 100 [facility] HospitalNeutrophils % (Manual)2018-02-16 17:03:00 * Test Item Value Reference Range Interpretation Comments Neutrophils % (Manual) (test code = 40075-1) 50 40-74 [facility] HospitalLymphocytes % (Manual)2018-02-16 17:03:00 * Test Item Value Reference Range Interpretation Comments Lymphocytes % (Manual) (test code = 737-7) 28 19-48 [facility] HospitalMonocytes % (Manual)2018-02-16 17:03:00* Test Item Value Reference Range Interpretation Comments Monocytes % (Manual) (test code = 744-3) 17 3.4-9.0 [facility] HospitalEosinophils % (Manual)2018-02-16 17:03:00 * Test Item Value Reference Range Interpretation Comments Eosinophils % (Manual) (test code = 714-6) 3 0-7 [facility] HospitalReactive Cuxmjtqsuad7039-81-17 17:03:00* Test Item Value Reference Range Interpretation Comments Reactive Lymphocytes (test code = 71298-8) 2 [facility] HospitalPlatelet Xyzfliza4722-45-58 17:03:00* Test Item Value Reference Range Interpretation Comments Platelet Estimate (test code = 46555-4) MODERATELY DECREASED [facility] HospitalPlatelet Morphology Ijjdxdj1212-30-60 17:03:00* Test Item Value Reference Range Interpretation Comments Platelet Morphology Comment (test code = 05859-9) NORMAL [facility] HospitalRed Cell Morphology Hksdvsj4831-58-29 17:03:00* Test Item Value Reference Range Interpretation Comments Red Cell Morphology Comment (test code = 6742-1) NORMAL [facility] HospitalAmmonia2018-08-03 06:12:00* Test Item Value Reference Range Interpretation Comments Ammonia (test code = 07911-3) 107 31-123 [facility] HospitalTotal Ofgciok1693-48-02 05:56:00* Test Item Value Reference Range Interpretation Comments Total Protein (test code = 2885-2) 5.1 6.5-8.1 [facility] HospitalGlobulin2018-08-03 05:56:00* Test Item Value Reference Range Interpretation Comments Globulin (test code = 23786-7) 2.8 2.3-3.5 [facility] HospitalAlbumin/Globulin Gdtyu5864-19-61 05:56:00 * Test Item Value Reference Range Interpretation Comments Albumin/Globulin Ratio (test code = 1759-0) 0.8 0.8-2.0 [facility] Dcbgw3781-10-67 05:48:00* Test Item Value Reference Range Interpretation Comments Sodium Level (test code = 2951-2) 137 136-145 [facility] HospitalPotassium Hdpkv3020-63-55 05:48:00* Test Item Value Reference Range Interpretation Comments Potassium Level (test code = 2823-3) 3.7 3.5-5.1 [facility] HospitalChloride Xeepz8707-30-59 05:48:00* Test Item Value Reference Range Interpretation Comments Chloride Level (test code = 2075-0) 111 98-107 [facility] HospitalCarbon Dioxide Knkip4377-74-69 05:48:00* Test Item Value Reference Range Interpretation Comments Carbon Dioxide Level (test code = 2028-9) 22 22-29 [facility] HospitalAnion Wge9614-84-65 05:48:00* Test Item Value Reference Range Interpretation Comments Anion Gap (test code = 18610-2) 7.7 8-16 [facility] HospitalBlood Urea Svsorcmz5902-48-56 05:48:00* Test Item Value Reference Range Interpretation Comments Blood Urea Nitrogen (test code = 3094-0) 7 7-26 [facility] HospitalCreatinine2018-08-03 05:48:00* Test Item Value Reference Range Interpretation Comments Creatinine (test code = 2160-0) 0.80 0.72-1.25 [facility] HospitalBUN/Creatinine Irfnk4069-20-58 05:48:00* Test Item Value Reference Range Interpretation Comments BUN/Creatinine Ratio (test code = 3097-3) 9 6-25 [facility] HospitalEstimat Glomerular Filtration Rate 2018-02-16 05:48:00* Test Item Value Reference Range Interpretation Comments Estimat Glomerular Filtration Rate (test code = 74352-0) 60- >60 Ranges were taken from the National Kidney Disease Education Program and the [facility] Kidney Foundation literature.Reference ranges:60 or greater: Xsyzcp00-28 ( for 3 consecutive months): Chronic kidney disease 15 or less: Kidney failureMemorial Hermann Southwest HospitalGlucose Docoo9687-46-16 05:48:00* Test Item Value Reference Range Interpretation Comments Glucose Level (test code = JOC8684) 81 74-118 [facility] HospitalCalcium Nhssa2119-99-84 05:48:00* Test Item Value Reference Range Interpretation Comments Calcium Level (test code = 30050-4) 7.5 8.4-10.2 [facility] HospitalTotal Xfbziamwf1030-59-41 05:48:00* Test Item Value Reference Range Interpretation Comments Total Bilirubin (test code = 1975-2) 1.0 0.2-1.2 [facility] HospitalAspartate Amino Transf (AST/SGOT) 2018-02-16 05:48:00* Test Item Value Reference Range Interpretation Comments Aspartate Amino Transf (AST/SGOT) (test code = Aspartate Amino Transf (AST/SGOT)) 43 5-34 [facility] HospitalAlanine Aminotransferase (ALT/SGPT) 2018-02-16 05:48:00* Test Item Value Reference Range Interpretation Comments Alanine Aminotransferase (ALT/SGPT) (test code = 1742-6) 23 0-55 [facility] HospitalAlbumin2018-08-03 05:48:00* Test Item Value Reference Range Interpretation Comments Albumin (test code = 1751-7) 2.3 3.5-5.0 [facility] HospitalAlkaline Ecadydcnmrj4632-83-59 05:48:00* Test Item Value Reference Range Interpretation Comments Alkaline Phosphatase (test code = 6768-6) 81 40-150 [facility] HospitalHypochromasia2018-08-02 09:44:00* Test Item Value Reference Range Interpretation Comments Hypochromasia (test code = 728-6) SLIGHT [facility] HospitalPoikilocytosis2018-08-02 09:44:00* Test Item Value Reference Range Interpretation Comments Poikilocytosis (test code = 779-9) MODE [facility] HospitalAnisocytosis2018-08-02 09:44:00* Test Item Value Reference Range Interpretation Comments Anisocytosis (test code = 702-1) MODE [facility] HospitalTarget Luqkm1796-88-84 09:44:00* Test Item Value Reference Range Interpretation Comments Target Cells (test code = 06339-9) FEW [facility] HospitalG I KCIJV9753-69-91 18:47:00 [facility] [address] [place] [address] Patient Name: CARLTON ROSARIO MR #: [id number] : 1950 Age/Sex: 68/M Req #: [id number] Adm Physician: KAT AREVALO MD Ordered by: PARTH HERRING MD Report #: [id number] Loca tion: [facility] Room/Bed: [place] [address] Procedure: [id number] NM/G I BLEED Exam Date: Exam Time: [...] COPY TO: PARTH DYKES MD CHEST 2 PHPFH9355-53-88 16:06:00 [place] [address] Patient Name: CARLTON ROSARIO MR #: [id number] : 1950 Age/Sex: 68/M Req #: [id number] Adm Physician: KAT AMAYA MD Ordered by: TOYIN CORONADO MD Report #: [id number] Location: [facility] Room/Bed: [place] [address] Procedure: [id number] DX/CHEST 2 VIEWS Exam Date: 02/14/18 Exam [...] 16:06 Di ctated By: TAJ RAMOS MD 05 COPY TO: TOYIN CORONADO MD, ABIM Prothrombin Exct9740-11-24 06:12:00* Test Item Value Reference Range Interpretation Comments Prothrombin Time (test code = 5902-2) 18.6 11.9-14.5 [facility] HospitalProthromb Time International Ratio 2018-02-14 06:12:00* Test Item Value Reference Range Interpretation Comments Prothromb Time International Ratio (test code = 6301-6) 1.68 Oral Anticoagulant Therapy INR Values:1. Low Intensity Therapy 1.5 - 2.02 . Moderate Intensity Therapy 2.0 - 3.03. High Intensity Therapy(1) 2.5 - 3. 54. High Intensity Therapy(2) 3.0 - 4.05. Panic Value INR > 5.0 [facility] HospitalActivated Partial Thromboplast Time 2018-02-14 06:12:00* Test Item Value Reference Range Interpretation Comments Activated Partial Thromboplast Time (test code = 02639-4) 39.8 23.8-35.5 [facility] HospitalCreatine Kinase ZW8107-33-59 23:36:00* Test Item Value Reference Range Interpretation Comments Creatine Kinase MB (test code = 49247-7) 3.50 0-5.0 [facility] HospitalTroponin P2497-11-83 23:36:00* Test Item Value Reference Range Interpretation Comments Troponin I (test code = XVO6838) 0.011 0-0.300 [facility] HospitalCreatine Yuhrnq4615-48-98 23:30:00* Test Item Value Reference Range Interpretation Comments Creatine Kinase (test code = 2157-6) 494 30-200 [facility] HospitalUrine MGG3962-19-87 01:56:00* Test Item Value Reference Range Interpretation Comments Urine WBC (test code = 5821-4) NONE 0-5 [facility] HospitalUrine BTF2178-61-76 01:56:00* Test Item Value Reference Range Interpretation Comments Urine RBC (test code = 38672-2) NONE 0-5 [facility] HospitalUrine Fgbishez1138-58-01 01:56:00* Test Item Value Reference Range Interpretation Comments Urine Bacteria (test code = 36395-1) NONE NONE [facility] HospitalUrine Epithelial Nbxtw9323-28-13 01:56:00 * Test Item Value Reference Range Interpretation Comments Urine Epithelial Cells (test code = 80739-6) NONE NONE [facility] HospitalUrine Cxjax4719-71-92 01:25:00* Test Item Value Reference Range Interpretation Comments Urine Color (test code = 5778-6) YELLOW YELLOW [facility] HospitalUrine Przmzuf5667-52-60 01:25:00* Test Item Value Reference Range Interpretation Comments Urine Clarity (test code = 20984-3) CLEAR CLEAR [facility] Specific Xwpzikv5343-89-09 01:25:00 * Test Item Value Reference Range Interpretation Comments Urine Specific [place] (test code = 5811-5) 1.030 1.010-1.02 5 [facility] HospitalUrine gQ5169-64-97 01:25:00* Test Item Value Reference Range Interpretation Comments Urine pH (test code = 58963-6) 6 5-7 [facility] HospitalUrine Leukocyte Jmpusifc3910-72-30 01:25:00* Test Item Value Reference Range Interpretation Comments Urine Leukocyte Esterase (test code = 5799-2) NEGATIVE NEGATIVE [facility] HospitalUrine Dyewoad1894-74-94 01:25:00* Test Item Value Reference Range Interpretation Comments Urine Nitrite (test code = 17172-2) NEGATIVE NEGATIVE [facility] HospitalUrine Drpsxjn9515-25-06 01:25:00* Test Item Value Reference Range Interpretation Comments Urine Protein (test code = 5804-0) TRACE NEGATIVE [facility] HospitalUrine Glucose (UA)2018-02-13 01:25:00* Test Item Value Reference Range Interpretation Comments Urine Glucose (UA) (test code = 2349-9) NEGATIVE NEGATIVE [facility] HospitalUrine Gexeqiy7843-07-04 01:25:00* Test Item Value Reference Range Interpretation Comments Urine Ketones (test code = 15554-5) TRACE NEGATIVE [facility] HospitalUrine Uhaejcodzguf1977-69-15 01:25:00* Test Item Value Reference Range Interpretation Comments Urine Urobilinogen (test code = 74702-6) 0.2 0.2-1 [facility] HospitalUrine Jzjnymkxi8594-19-41 01:25:00* Test Item Value Reference Range Interpretation Comments Urine Bilirubin (test code = 1978-6) NEGATIVE NEGATIVE [facility] HospitalUrine Xkpey3130-54-73 01:25:00* Test Item Value Reference Range Interpretation Comments Urine Blood (test code = 59657-6) NEGATIVE NEGATIVE [facility] HospitalB-Type Natriuretic Obefetn8741-35-82 00:39:00* Test Item Value Reference Range Interpretation Comments B-Type Natriuretic Peptide (test code = 62230-6) 29.0 0-100 [facility] Tltkl8634-26-15 23:27:00* Test Item Value Reference Range Interpretation Comments Stool Occult Blood (test code = 2335-8) POSITIVE NEGATIVE [facility] 2 [id number] 22:54:00 [facility] [address] [place] [address] Patient Name: CARLTON ROSARIO MR #: [id number] : Age/Sex: 68/M Req #: [id number] Adm Physician: Ordered by: YANNICK DESAI MD Report #: [id number] Location: ER Room/Bed: Procedure: [id number] DX/CHEST 2 VIEWS Exam Date: 01/16 Exam Time: 0 REPORT STATUS: Signed C HEST 2 VIEWS, [...] 10:58 PM Dictated By: TERESE RIVERA MD 8265 Transcribed By: KAREN on 02/12/18 58 COPY TO: YANNICK DESAI MD CT BRAIN [id number] 22:46:00 [place] [address] Patient Name: CARLTON ROSARIO MR #: [id number] : Age/Sex: 68/M Req #: [id number] Adm Physician: BENJAMIN HUNTER MD Ordered by: YANNICK DESAI MD Report #: [id number] Location: [facility] Room/Bed: [facility][note 3] Procedure: [id number] CT/CT BRAIN WO Exam Date: 02/12/18 Exam [...] Thyroid Stimulating Hormone (TSH) (test code = 22763-5) 5.012 0.350-4.940 [facility] HospitalLactic Acid Nzbvo9561-15-09 21:37:00* Test Item Value Reference Range Interpretation Comments Lactic Acid Level (test code = Lactic Acid Level) 45.6 4.5- 19.8 [facility] HospitalMagnesium Ctyps8490-50-71 21:37:00* Test Item Value Reference Range Interpretation Comments Magnesium Level (test code = 58068-2) 1.9 1.3-2.1 [facility] HospitalPolychromasia2018-02-11 10:47:00* Test Item Value Reference Range Interpretation Comments Polychromasia (test code = 24734-6) FEW [facility] HospitalMicrocytosis2018-02-11 10:47:00* Test Item Value Reference Range Interpretation Comments Microcytosis (test code = 741-9) SLIG [facility] HospitalMacrocytosis2018-02-11 10:47:00* Test Item Value Reference Range Interpretation Comments Macrocytosis (test code = 738-5) MARKED [facility] HospitalPhosphorus Zfpkz0746-59-61 07:36:00* Test Item Value Reference Range Interpretation Comments Phosphorus Level (test code = CWR8093) 2.7 2.3-4.7 [facility] HospitalIonized Rbkkekc6704-62-28 07:19:00* Test Item Value Reference Range Interpretation Comments Ionized Calcium (test code = 28279-7) 1.1 1.09-1.30 [facility] HospitalBasophils % (Manual)2017-08-25 08:13:00* Test Item Value Reference Range Interpretation Comments Basophils % (Manual) (test code = 02265-4) 2 0-1.5 [facility] HospitalDirect Bvzxqxzjj0939-48-32 07:32:00* Test Item Value Reference Range Interpretation Comments Direct Bilirubin (test code = 88003-4) 0.5 0.0-5.0 [facility] HospitalLipase2018-02-04 06:27:00* Test Item Value Reference Range Interpretation Comments Lipase (test code = 3040-3) 24 8-78 [facility] HospitalUrine Ozrdecj7275-64-47 14:28:00* Test Item Value Reference Range Interpretation Comments Urine Culture (test code = 630-4) Organism: KLEBSIELLA OXYTOCA [facility] HospitalInfluenza Virus Types A,B Antigen 2017-08-17 04:06:00* Test Item Value Reference Range Interpretation Comments Influenza Virus Types A,B Antigen (test code = 84010-8) NEGATIVE NEGATIVE [facility] HospitalArterial Blood lS7005-81-04 11:24:00* Test Item Value Reference Range Interpretation Comments Arterial Blood pH (test code = 2744-1) 7.28 7.31-7.41 [facility] HospitalArterial Blood Partial Pressure CO2 2017-08-16 11:24:00* Test Item Value Reference Range Interpretation Comments Arterial Blood Partial Pressure CO2 (test code = 2019-02) 52 41-51 [facility] HospitalArterial Blood Partial Pressure O2 2017-08-16 11:24:00* Test Item Value Reference Range Interpretation Comments Arterial Blood Partial Pressure O2 (test code = 2019-02) 247 80-105 [facility] HospitalArterial Blood DUY80698-62-13 11:24:00* Test Item Value Reference Range Interpretation Comments Arterial Blood HCO3 (test code = 1960-4) 25 23-28 [facility] HospitalArterial Blood Base Bgpfnt5084-09-35 11:24:00* Test Item Value Reference Range Interpretation Comments Arterial Blood Base Excess (test code = 1925-7) -2.0 -2-3 [facility] HospitalArterial Blood Oxygen Saturation 2017-08-16 11:24:00* Test Item Value Reference Range Interpretation Comments Arterial Blood Oxygen Saturation (test code = 2708-6) 100.0 95-98 [facility] HospitalNucleated Red Blood Crpjt3620-17-96 08:54:00* Test Item Value Reference Range Interpretation Comments Nucleated Red Blood Cells (test code = 61425-0) 2 [facility] HospitalD-Dimer Quantitative (PE/DVT)2017-08-15 23:47:00* Test Item Value Reference Range Interpretation Comments D-Dimer Quantitative (PE/DVT) (test code = 05166-7) 6.59 0. 00-0.45 [facility] HospitalHEPATIC FUNCTION VCUFS6481-36-26 06:24:00 * Test Item Value Reference Range [...] = 347) 34 U/L 6-55 HEPATIC FUNCTION VWSJR0122-04-65 06:30:00* Test Item Value Reference Range Interpretation [...] = 413) 0 /100 WBC 0 -0 AJXWDQN1765-82-94 08:31:00* Test Item Value Reference Range Interpretation Comments AMMONIA (BEAKER) (test code = 348) 111 mol/L 18-72 H Specimen slightly hemolyzed BASIC METABOLIC VMBTV3303-98-21 05:59:00* Test Item Value Reference Range Interpretation [...] NOT APPLICABLE FOR DIALYSIS PATIENTS. HEPATIC FUNCTION MXSHW5705-41-57 05:59:00* Test Item Value Reference Range Interpretation [...] 347) 34 U/L 6-55 Specimen slightly hemolyzed PT/QBTO7222-57-41 05:41:00* Test Item Value Reference Range Interpretation [...] mechanical heart valves.CBC W/PLT COUNT & AUTO SIYVLRKMKHOK1257-89-04 05:39:00* Test Item Value Reference Range Interpretation [...] 2801) 0 % 0-1 CHEST SINGLE (PORTABLE) [place] [address] Patient Name: CARLTON ROSARIO MR #: [id number] : 1950 Age/Sex: 67/M Req #: [id number] Adm Physician: FOSTER GAINES MD Ordered by: TOYIN CORONADO MD Report #: [id number] Location: MED/SURG3 Room/Bed: 295 Procedure: [id number] DX/ CHEST SINGLE (PORTABLE) Exam Date: 08/26/17 [...] TO: TOYIN CORONADO MD CHEST SINGLE (PORTABLE) [place] [address] Patient Name: CARLTON ROSARIO MR #: [id number] : 1950 Age/Sex: 67/M Req #: [id number] Adm Physician: FOSTER GAINES MD Ordered by: TOYIN CORONADO MD Report #: [id number] Location: MED/SURG3 Room/Bed: [facility] Procedure: 6458-8847 DX/ CHEST SINGLE (PORTABLE) Exam Date: Exam [...] TO: TOYIN CORONADO MD CT ABDOMEN/PELVIS WOW [place] [address] Patient Name: CARLTON ROSARIO MR #: [id number] : 1950 Age/Sex: 67/M Req #: [id number] Adm Physician: FOSTER GAINES MD Ordered by: CHINTAN HIGGINS MD Report #: [id number] Location: MED/SURG3 Room/Bed: [facility] Procedure: [id number] CT/CT AB DOMEN/PELVIS WOW Exam Date: 08/22/17 [...] 08/23/17156 COPY TO: CHINTAN HIGGINS MD CHEST [facility] (PORTABLE) [place] [address] Patient Name: CARLTON ROSARIO MR #: [id number] : 1950 Age/Sex: 67/M Req #: [id number] Adm Physician: FOSTER GAINES MD Ordered by: TOYIN CORONADO MD Report #: [id number] Location: [facility]/SURG Room/Bed: [facility] Procedure: [id number] DX/ CHEST SINGLE (PORTABLE) Exam Date: 08/22/17 [...] 08/22/17 08 Transcribed By: FELIX on 08/22/17 08 COPY TO: TOYIN CORONADO MD CHEST SINGLE (PORTABLE) [place] [address] Patient Name: CARLTON ROSARIO MR #: [id number] : 1950 Age/Sex: 67/M Req #: [id number] Adm Physician: FOSTER ARGUETA MD Ordered by: TOYIN CORONADO MD Report #: [id number] Locatio n: MED/SURG3 Room/Bed: 295-1 Procedure: [id number] DX/ CHEST SINGLE (PORTABLE) Exam Date: 08/21/17 Exam Shay e: 0530 REPORT STATUS: Signed EXAM: CHEST SINGLE (PORTABLE), [...] TO: TOYIN CORONADO MD CHEST SINGLE (PORTABLE) [place] [address] Patient Name: CARLTON ROSARIO MR #: [id number] : 1950 Age/Sex: 67/M Req #: [id number] Adm Physician: FOSTER GAINES MD Ordered by: TOYIN CORONADO MD Report #: [id number] Location: ICU Room/Bed: ICU 195 Procedure: [id number] DX/CH EST SINGLE (PORTABLE) Exam Date: 08/20/17 Exam Time: 05 REPORT STATUS: Signed EXAM: CHEST SINGLE (PORTABLE), [...] Signed by: Dr. Israel Tracy M.D. on 8 6:26 AM Dictated By: ISRAEL TRACY MD 5 Transcribed By: KAREN on 08/20/17625 COPY TO: TOYIN CORONADO MD [place] [address] Patient Name: CARLTON ROSARIO MR #: [id number] : 1950 Age/Sex: 67/M Req #: [id number] Adm Physician: FOSTER GAINES MD Ordered by: TYOIN CORONADO MD Report #: [id number] Location: ICU Room/Bed: ICU [facility] Procedure: DX/AB DOMONIQUE1VIEW (KUB) Exam Date: Exam Time: REPO RT [...] 2:32 PM Dictated By: MACKENZIE ADAM MD 1432 Transcribed By: KAREN on 08/19/17 1432 COPY TO: TOYIN BEY MD CHEST SINGLE (PORTABLE) [place] [address] Patient Name: CARLTON ROSARIO MR #: [id number] : 1950 Age/Sex: 67/M Req #: [id number] Adm Physician: FOSTER GAINES MD Ordered by: TOYIN CORONADO MD Report #: [id number] Location: ICU Room/Bed: ICU [facility] Procedure: DX/CH EST SINGLE (PORTABLE) Exam Date: Exam [...] TO: TOYIN CORONADO MD CHEST SINGLE (PORTABLE) [place] [address] Patient Name: CARLTON ROSARIO MR #: [id number] : Age/Sex: 67/M Req #: [id number] Adm Physician: FOSTER ARGUETA MD Ordered by: FOSTER GAINES MD Report #: [id number] Location: ICU Room/Bed: ICU [facility] Procedure: [id number] DX/CHES T SINGLE (PORTABLE) Exam Date: 08/18/17 [...] TO: NEHA GAINES MD CHEST SINGLE (PORTABLE) [place] [address] Patient Name: CARLTON ROSARIO MR #: [id number] : 1950 Age/Sex: 67/M Req #: [id number] Adm Physician: FOSTER GAINES MD Ordered by: TOYIN CORONADO MD Report #: [id number] Location: ICU Room/Bed: [place] [address] Procedure: [id number] DX/CH EST SINGLE (PORTABLE) Exam Date: 08/17/17 [...] on 08/17/2017 5:35 AM Dictated By: ISRAEL V[place]la[place] dalia Signed By: ISRAEL TRACY MD on 08/17/17534 Transcribed By: KAREN on 08/03 COPY TO: TOYIN CORONADO MD CHEST SINGLE (PORTABLE) [place] [address] Patient Name: CARLTON ROSARIO MR #: [id number] : Age/Sex: 67/M Req #: [id number] Adm Physician: FOSTER ARGUETA MD Ordered by: LAN HUERTA MD Report #: [id number] Locat ion: [facility] Room/Bed: [place] [address] Procedure: [id number] D X/CHEST SINGLE (PORTABLE) Exam Date: 08/16/17 Exam T carlos: 0920 REPORT STATUS: Signed PROCEDURE: CHEST SINGLE (PORTABLE) TECHNIQUE: Portable AP chest INDICATION: Intubation COMPARISON: [facility], DX, CHEST SINGLE (PORTABLE), 08/16/2017, 8:07. FINDIN GS: See conclusion. CONCLUSION: 1. Endotracheal tube tip is 6 cm f rom [facility] [place]. 2. Other findings are unchanged from 8:07 AM. Di ctated by: Mayra Lainez M.D. on 08/16/2017 at 10:20 Electronically approved by: Mayra Lainez M.D. on 08/16/2017 at 10:20 Dictated By: MAYRA LAINEZ MD 1020 COPY TO: LAN HUERTA MD CHEST SINGLE (PORTABLE) [facility] [address] [place] [address] Patient Name: CARLTON ROSARIO MR #: [id number] : 1950 Age/Sex: 67/M Req #: [id number] Adm Physician: FOSTER GAINES MD Ordered by: LAN HUERTA MD Report #: [id number] Location: [facility] Room/Bed: [place] [address] Procedure: [id number] D X/CHEST SINGLE (PORTABLE) Exam Date: 08/16/17 Exam T carlos: 0805 REPORT STATUS: Signed PROCEDURE: CHEST SINGLE (PORTABLE) TECHNIQUE: Portable AP chest INDICATION: Central line placement COMPARIS ON: [facility], DX, CHEST SINGLE (PORTABLE), 08/16/2017, 4:19. [...] TO: LAN HUERTA MD CHEST SINGLE (PORTABLE) [place] [address] Patient Name: CARLTON ROSARIO MR #: [id number] : 1950 Age/Sex: 67/M Req #: [id number] Adm Physician: FOSTER GAINES MD Ordered by: YANNICK DESAI MD Report #: [id number] Location: [facility] Room/Bed: [place] [address] Procedure: [id number] DX/CH EST SINGLE (PORTABLE) Exam Date: Exam [...] TO: PAULA DESAI RD, MD CT CHEST W [place] [address] Patient Name: CARLTON ROSARIO MR #: [id number] : 1950 Age/Sex: 67/M Req #: [id number] Adm Physician: FOSTER GAINES MD Ordered by: YANNICK DESAI MD Report #: [id number] Location: [facility] Room/Bed: [place] [address] Procedure: [id number] CT/CT CHEST W Exam Date: 08/16/17 Exam [...] AM Dictat ed By: ISRAEL TRACY MD 0 Transcribed By: KAREN on 08/16/17110 COPY TO: YANNICK DESAI MD CHEST SINGLE (PORTABLE) [facility] [address] [place] [address] Patient Name: CARLTON ROSARIO MR #: [id number] : 1950 Age/Sex: 67/M Req #: [id number] Adm Physician: Ordered by: RAGHAVENDRA BRITO LIAISON INSPECTION LABORATORY ASSISTANT Report #: [id number] Location: ER Room/Bed: Procedure: [id number] DX/CHEST SINGLE (PORTABLE) Exa m Date: 08/15/17 [...] setting Ismael Orellana M.D. Dictated by: Ismael Orellana M.D. on 08/15/2017 at 19:00 Electronically approved b y: Ismael Orellana M.D. on 08/15/2017 at 19:00 Dictated By: ISMAEL ORELLANA MD 99 Transcribed By: FELIX on 08/15/171899 COPY TO: RAGHAVENDRA BRITO NP US ABDOMEN COMPLETE [place] [address] Patient Name: CARLTON ROSARIO MR #: [id number] : 1950 Age/Sex: 67/M Req #: [id number] Adm Physician: FOSTER GAINES MD Ordered by: YANNICK DESAI MD Report #: [id number] Location: [facility] Room/Bed: [place] [address] Procedure: [id number] US/US ABDOMEN COMPLETE Exam Date: 08/15/17 Exam [...] 11:31 PM Dictated By: ISRAEL TRACY MD 2331 Transcribed By: KAREN on 08/15/171 COPY TO: YANNICK DESAI MD
--- OUTSIDE RECORDS SUMMARY | 2019-12-05 15:43 | XMS REPORT | Clinical Summary ---
Author Author [facility] Address Unknown Phone Unavailable Care Team Providers Care Ticker Maintainer Name Role Phone Cedrick Hale PCP Unavailable [...] Hepatic encephalopathy 03/01/2018 Last Assessment & Plan: [place] grade 0-1. No asterixis on e xam. [...] Nuzhat David MD 05/31/2019 Anesthesia Gastroenterology Event [facility] UPPER ENDOSCOPY 05/31/2019 Surgery Gastroenterology [facility] 05/31/2019 Hospital Gastroenterology Encounter after 12/04/2018 [...] Taken Vital Sign Reading 05/31/2019 3:15 PM X RAY NURSE Blood Pressure 116/72 05/31/2019 3:15 PM X RAY NURSE Pulse 75 05/31/2019 3:15 PM X RAY NURSE Temperature 36.7 C (98.1 F) 05/31/2019 3:15 PM X RAY NURSE Respiratory Rate 18 05/31/2019 3:15 PM X RAY NURSE Oxygen Saturation 99% - Inhaled Oxygen - Concentration 05/31/2019 12:14 PM X RAY NURSE Weight 86.4 kg (190 lb 6.4 oz) 05/31/2019 12:14 PM X RAY NURSE Height 172.7 cm (5' 8") 05/31/2019 12:14 PM X RAY NURSE Body Mass Index 28.95 Plan of Treatment [...] PROCEDURE - 05/31/2019 ENDOSCOPY URL 2:41 PM X RAY NURSE UPPER ENDOSCOPY 05/31/2019 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 after 12/04/2018 Insurance Payer Benefit Subscriber ID Type Phone Address Plan / Group [facility] MEDICARE ADV [facility] ([place] [address] Advance Directives For more information, please contact: [facility] [address] [place] [address] Date Inactivated Comments Code Status Date Activated 04/30/2017 6:47 PM Full Code 04/28/2017 1:08 AM This code status was determined by: Patient
[2019-12-05] MEDS ORDERED: ACETAMINOPHEN 325 MG TAB PO PRN (20:00)
[2019-12-05] MEDS ORDERED: ONDANSETRON HCL INJ 2MG/ML 2ML 2 MG/ML VIAL IV PRN (20:15)
--- NOTE | 2019-12-05 20:30 | NUR ---
Patient arrived to the unit via wheelchair as a new admit from ED to Rm 294 with admitting dx of Microcytic anemia, weakness. Pt alert and oriented x3. Ambulatory in room prn. Pt aware he is scheduled to receive 2 units PRBC per order by ER doc for Hbg of 4.6 and Hct of 16.8. Call terrazas within reach. Will monitor pt closely.
[2019-12-05 21:13] VITALS: BP 109/64
[2019-12-05 21:15] VITALS: BP 109/64
[2019-12-05 21:16] LABS: BILIRUBIN,URINE NEGATIVE (NEGATIVE); CLARITY,URINE CLEAR (CLEAR); COLOR,URINE YELLOW (YELLOW); KETONES,URINE NEGATIVE (NEGATIVE); LEUKOCYTE ESTERASE ,URINE NEGATIVE (NEGATIVE); NITRITE,URINE NEGATIVE (NEGATIVE); PROTEIN,URINE DIPSTICK NEGATIVE (NEGATIVE); URINE UROBILINOGEN 0.2 mg/dL (0.2 - 1)
[2019-12-05 21:28] LABS: BACTERIA,URINE FEW /HPF; MUCUS,URINE MODERATE (RARE)
[2019-12-05] MEDS: TAMSULOSIN HCL 0.4 MG CAP PO SCH (21:28)
[2019-12-05 22:00] VITALS: BP 109/64
[2019-12-05] MEDS ORDERED: SODIUM CHLORIDE 0.9% 500ML 500 ML ONE (22:42)
--- NOTE | 2019-12-05 23:45 | NUR ---
Called Blood bank in lab to inquire if PRBC ready for pick. Aleida (research laboratory specialist) informed PRBC almost ready.
[2019-12-06] VITALS (7 sets, daily range): BP systolic 103–119; BP diastolic 52–64
--- NOTE | 2019-12-06 | NUR ---
1st unit of PRBC started on patient. Patient V/S stable (BP 110/55, HR 77, R 18, Temp 97.8 F). No side effects observed on patient.
[2019-12-06] MEDS ORDERED: XIFAXAN550 MG PO (01:25)
--- NOTE | 2019-12-06 02:40 | NUR ---
Patient just finished with 1st unit of PRBC transfusion. Pt tolerated transfusion well. Will start 2nd unit of PRBC in a few minutes.
--- NOTE | 2019-12-06 03:00 | NUR ---
2nd unit of PRBC transfusion started on pt. Pt asymptomatic and is tolerating transfusion well. Pt denies any discomfort.
--- NOTE | 2019-12-06 05:50 | NUR ---
Patient finished on 2nd unit of PRBC. Pt tolerated transfusion well and is asymptomatic. Ethylene Plant Operator advised to draw AM lab around 0800 for a better or accurate lab result post blood transfusion.
--- NOTE | 2019-12-06 07:20 | NUR ---
PATIENT IN BED RESTING WITH EYES CLOSED, NO DISTRESS NOTED. JUST COMPLETED THE 2ND UNIT OF BLOOD. BED IN LOWER POSITION, CALL LIGHT AT REACH.
[2019-12-06 08:24] LABS: BASOPHILS % 0.5 % (0.0-1.0); EOSINOPHILS # (AUTO) 0.1 (0.0-0.4); EOSINOPHILS % 3.8 % (0.0-6.0); HEMATOCRIT 21.6 % (38.2-49.6); LYMPHOCYTES # (AUTO) 0.6 (1.0-3.2); LYMPHOCYTES % 16.1 % (18.0-39.1); MEAN CORPUSCULAR HEMOGLOBIN 22.5 pg (28-32); MEAN CORPUSCULAR HGB CONC 29.6 g/dL (31-35); MEAN CORPUSCULAR VOLUME 75.8 fL (81-99); MONOCYTES # (AUTO) 0.6 (0.2-0.8); MONOCYTES % 15.8 % (4.4-11.3); NEUTROPHILS # (AUTO) 2.3 (2.1-6.9); NEUTROPHILS % 63.3 % (38.7-80.0); PLATELET COUNT 59 x10e3/uL (140-360); RED BLOOD COUNT 2.85 x10e6/uL (4.3-5.7); RED CELL DISTRIBUTION WIDTH 19.4 % (11.7-14.4)
[2019-12-06 08:51] LABS: HEMOGLOBIN 6.4 g/dL (14.0-18.0)
[2019-12-06] MEDS: SPIRONOLACTONE 25 MG TAB PO SCH (09:06)
--- NOTE | 2019-12-06 09:40 | NUR ---
SPOKE WITH MD REGARDING CRITICAL LAB RESULT, NEW ORDER RECEIVED.
[2019-12-06 09:41] LABS: ANISOCYTOSIS MODERATE; PLATELET ESTIMATE MODERATELY DECREASED; PLATELET MORPHOLOGY COMMENT NORMAL; RBC MORPHOLOGY COMMENT ABNORMAL
[2019-12-06 09:42] LABS: OVALOCYTES FEW
[2019-12-06 09:43] LABS: HYPOCHROMASIA MARKED; POLYCHROMASIA FEW
[2019-12-06 09:44] LABS: MICROCYTOSIS MODERATE; TEAR DROP CELLS FEW
[2019-12-06] MEDS ORDERED: SODIUM CHLORIDE 0.9% 250ML 250 ML IV SCH (09:45)
--- NOTE | 2019-12-06 11:47 | NUR ---
BLOOD TRANSFUSION STARTED ORDERED. STAYED WITH PATIENT FOR THE FIRST 15 MINUTES, NO ADVERSE REACTION NOTED.
--- NOTE | 2019-12-06 15:03 | NUR ---
BLOOD TRANSFUSION COMPLETED. NO ADVERSE REACTION NOTED. PATIENT UP IN BED WATCHING TV, CALL LIGHT AT REACH.
[2019-12-06 15:24] LABS: % IRON SATURATION 15 % (15-50); IRON 46 ug/dL (65-175); TOTAL IRON BINDING CAPACITY 308 ug/dL (261-478); TRANSFERRIN 220 mg/dL (174-364)
--- NOTE | 2019-12-06 19:17 | NUR ---
RECEIVED REPORT FROM DAY NURSE. PATIENT IS RESTING COMFORTABLY IN THE BED. BED IS IN THE LOWEST POSITION AND CALL LIGHT IS WITHIN REACH.
[2019-12-06] MEDS ORDERED: FENTANYL CITRATE/PF 100MCG/2 ML INJ ONE (19:55)
[2019-12-06 20:20] LABS: HEMATOCRIT 23.4 % (38.2-49.6); HEMOGLOBIN 7.1 g/dL (14.0-18.0)
[2019-12-06] MEDS: RIFAXIMIN 550 MG TABLET PO SCH (21:18)
[2019-12-06] MEDS: TAMSULOSIN HCL 0.4 MG CAP PO SCH (21:18)
[2019-12-06] MEDS: LACTULOSE SYRUP 20 GM/30 ML UDC PO SCH (21:18)
[2019-12-06] MEDS ORDERED: BISACODYL 5 MG TAB EC PO ONE (23:45)
[2019-12-07] VITALS (8 sets, daily range): BP systolic 101–114; BP diastolic 55–67
[2019-12-07] MEDS ORDERED: BISACODYL 5 MG TAB EC PO ONE ×3 (00:15→01:15)
--- NOTE | 2019-12-07 01:11 | History and Physical ---
PRIMARY CARE PHYSICIAN: Dr. Hale with [facility]. CHIEF COMPLAINT: Shortness of breath and dizziness. HISTORY OF PRESENT ILLNESS: This is a 69-year-old male with past medical history of hepatitis C and liver cirrhosis, BPH, presented to the ER with complaints of dizziness and shortness of breath. He was noted to have severe anemia with a hemoglobin of 4.6 and hematocrit 16.8. He denies any chest pain, abdominal pain, melena, hematuria, abdominal pain, or disorientation. PAST MEDICAL HISTORY: 1. Cirrhosis of the liver. 2. Hepatitis C. 3. BPH. PAST SURGICAL HISTORY: He reports tonsillectomy as a child. FAMILY MEDICAL HISTORY: Reports father had heart disease and mother of cancer. SOCIAL HISTORY: He denies any tobacco use. He reports quit alcohol use and illicit drug about 5 years ago. ALLERGIES: PENICILLIN AND CODEINE. REVIEW OF SYSTEMS: GENERAL: Fatigue. LUNGS: Shortness of breath. CARDIOVASCULAR: No chest pain. GI: No abdominal pain or nausea. NEURO : Dizziness. MUSCULOSKELETAL: No swelling. SKIN: Dry. PHYSICAL EXAMINATION: VITAL SIGNS: Temperature 97.9, pulse is 70, respirations 20, blood pressure 119/60, pulse ox is 99% on room air. GENERAL: No acute distress. HEENT: Normocephalic, atraumatic. NECK: Supple. LUNGS: Clear to auscultation. CARDIOVASCULAR: Regular heart rate and rhythm. GI: Soft and nontender, obese. NEUROLOGIC: Alert, awake, and oriented x3. MUSCULOSKELETAL: Moves all extremities. SKIN: Dry. PSYCH: Calm. LABORATORY DATA: WBC 4.77, hemoglobin 4.6, hematocrit 16.8. After transfusion of 2 units, it is up to 6.4 and 21.6, platelets 75. Sodium is 137, potassium 3.7, BUN is 12, creatinine is 0.84, estimated GFR is greater than 60. AST 38, ALT 21. BNP 227. Troponin I is 0.046. TSH 4.193. INR 1.37, PT 17.8. UA is clear with few bacteria and moderate mucus. IMAGING: CT of the brain with no acute intracranial findings. Chest x-ray showed bilateral interstitial type of pulmonary opacities, which could represent atypical pulmonary edema or infection and/or inflammation. These are improved compared with the previous exam that was done 2 years ago. IMPRESSION AND PLAN: 1. Symptomatic severe anemia. Hemoglobin was 4.6 upon arrival. He was given 2 units of PRBCs, this morning hemoglobin was 6.4. We will transfuse one more unit of blood and recheck H and H. GI has been consulted for further workup of anemia. 2. Thrombocytopenia. Platelet is 75. We will continue to monitor closely. 3. Cirrhosis of the liver with history of hepatitis C. We will resume his home medication rifaximin, lactulose and spironolactone. Ammonia is within normal limits. We will also have GI consulted. 4. BPH. We will continue Flomax. 5. Deep vein thrombosis prophylaxis. We will hold off on anticoagulation due to anemia. Dictated by GERARD Lockwood Shayla Waddell MD MY/MODL /[id number] Pt seen and examined on 12/06/19. Agree with the findings and plan as documented by GERARD Whitehead. JONATHAND
--- NOTE | 2019-12-07 02:00 | NUR ---
PATIENT HAS SIGNED CONSENT FORM FOR EGD AND COLONOSCOPY.
[2019-12-07] MEDS ORDERED: PHYTONADIONE 10 MG/ML AMP IM ONE (03:30)
[2019-12-07] MEDS ORDERED: SODIUM CHLORIDE 0.9% 100 ML ONE ×2 (03:30→03:31)
[2019-12-07] MEDS ORDERED: SODIUM CHLORIDE 0.9% 250ML 250 ML ONE (03:40)
[2019-12-07] MEDS ORDERED: CITRATE OF MAGNESIA 300ML BOTTLE PO ONE (05:00)
[2019-12-07 06:25] LABS: BASOPHILS % 0.4 % (0.0-1.0); EOSINOPHILS # (AUTO) 0.2 (0.0-0.4); EOSINOPHILS % 3.8 % (0.0-6.0); HEMATOCRIT 24.1 % (38.2-49.6); HEMOGLOBIN 7.4 g/dL (14.0-18.0); LYMPHOCYTES # (AUTO) 0.8 (1.0-3.2); LYMPHOCYTES % 17.3 % (18.0-39.1); MEAN CORPUSCULAR HEMOGLOBIN 23.4 pg (28-32); MEAN CORPUSCULAR HGB CONC 30.7 g/dL (31-35); MEAN CORPUSCULAR VOLUME 76.3 fL (81-99); MONOCYTES # (AUTO) 0.8 (0.2-0.8); MONOCYTES % 17.7 % (4.4-11.3); NEUTROPHILS # (AUTO) 2.8 (2.1-6.9); NEUTROPHILS % 60.4 % (38.7-80.0); PLATELET COUNT 51 x10e3/uL (140-360); RED BLOOD COUNT 3.16 x10e6/uL (4.3-5.7); RED CELL DISTRIBUTION WIDTH 19.4 % (11.7-14.4)
--- NOTE | 2019-12-07 07:00 | NUR ---
received bedside report. pt is oob in the restroom, no s/s of distress. pt was prepped for colonoscopy/EGD night before. instructed pt to call RN for help
--- NOTE | 2019-12-07 07:06 | NUR ---
REPORT GIVEN TO DAY NURSE. PATIENT IS RESTING COMFORTABLY IN THE BED. NO DISTRESS NOTED.
[2019-12-07 07:11] LABS: ANION GAP 8.8 mmol/L (8-16); BLOOD UREA NITROGEN 7 mg/dL (7-26); BUN/CREATININE RATIO 10 (6-25); CALCIUM 7.4 mg/dL (8.4-10.2); CARBON DIOXIDE 21 mmol/L (22-29); CHLORIDE 111 mmol/L (98-107); CREATININE, SERUM 0.72 mg/dL (0.72-1.25); EST GLOMERULAR FILTRATION RATE > 60 ML/MIN (60-); GLUCOSE 76 mg/dL (74-118); POTASSIUM 3.8 mmol/L (3.5-5.1); SODIUM 137 mmol/L (136-145)
[2019-12-07] MEDS: PANTOPRAZOLE SOD 40 MG TABEC PO SCH (07:30)
[2019-12-07] MEDS ORDERED: CITRATE OF MAGNESIA 300ML BOTTLE PO STA (08:56)
[2019-12-07] MEDS: RIFAXIMIN 550 MG TABLET PO SCH ×2 (09:00→20:09)
[2019-12-07] MEDS: LACTULOSE SYRUP 20 GM/30 ML UDC PO SCH ×2 (09:00→20:09)
[2019-12-07] MEDS: SPIRONOLACTONE 25 MG TAB PO SCH (09:00)
[2019-12-07] MEDS: IRON SUCROSE 100 MG in SODIUM CHLORIDE 0.9% 100 ML 100 ML IV SCH (11:30)
--- NOTE | 2019-12-07 11:44 | NUR ---
patient off unit for colonoscopy/EGD
[2019-12-07 12:08] LABS: EOSINOPHILS % (MANUAL) 4 % (0-7); LYMPHOCYTES % (MANUAL) 17 % (19-48); MONOCYTES % (MANUAL) 15 % (3.4-9.0); NEUTROPHILS % (MANUAL) 64 % (40-74)
[2019-12-07 12:09] LABS: PLATELET ESTIMATE MODERATELY DECREASED
[2019-12-07 12:10] LABS: HYPOCHROMASIA SLIGHT; MICROCYTOSIS SLIGHT; PLATELET MORPHOLOGY COMMENT NORMAL; POLYCHROMASIA FEW; SCHISTOCYTES FEW
[2019-12-07 12:11] LABS: RBC MORPHOLOGY COMMENT ABNORMAL
[2019-12-07] MEDS: CYANOCOBALAMIN INJ 1,000 MCG/ML VIAL IM STA ×2 (14:11→17:52)
[2019-12-07] MEDS ORDERED: PHYTONADIONE 10 MG/ML AMP IV ONE (14:30)
--- NOTE | 2019-12-07 14:47 | NUR ---
received report from OR nurse. EGD found portal hypertension (fulguration), watermelon stomach, distal esophagitis. colonoscopy found diverticulosis, 2 polyps (removed), internal hemorrhoids. vitals: 105/61, 87 hr, 97.0 temp, 96% o2
--- NOTE | 2019-12-07 15:10 | NUR ---
received pt back from OR. pt is alert, drowsy from procedure. dr. lutz at the bedside and discussed being discharged tomorrow 12/08/19. pt resumed on clear liquid diet and advance as tolerated
[2019-12-07] MEDS ORDERED: PHYTONADIONE 10MG/ML 20 MG in SODIUM CHLORIDE 0.9% 50ML 50 ML IV ONE (15:30)
--- NOTE | 2019-12-07 16:14 | Operative Report ---
DATE OF PROCEDURE: 12/07/2019 SURGEON: Ramon Ford MD PROCEDURES: EGD with fulguration of GAVE and a colonoscopy with polypectomy note. INDICATIONS FOR EGD: Iron deficiency anemia. INDICATIONS FOR COLONOSCOPY: Iron deficiency anemia. MEDICATIONS: The patient was done under MAC, please see anesthesiologist's note. PROCEDURE IN DETAIL: With the patient in left lateral decubitus position, a flexible fiberoptic Olympus gastroscope was introduced into the esophagus under direct visualization without any difficulty. Grade 1-2 esophageal varices were noted without active bleeding or stigmata of recent hemorrhage. The scope was then advanced with ease into the stomach and some mild portal hypertensive gastropathy changes were noted. Some mild portal hypertensive gastropathy changes were noted. Watermelon stomach was noted in the antrum and the pylorus was of normal contour and shape, it was intubated with ease and the scope, it was advanced all the way to the second portion of the duodenum. The scope was then withdrawn slowly, mucosa overlying the proximal second portion and the duodenal bulb appeared to be within normal limits. The scope was then withdrawn back into the stomach and retroflexed, and small cardiac varices were noted without active bleeding or stigmata of recent hemorrhage. 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 Good hemostasis documented. The scope was subsequently withdrawn. The patient tolerated the procedure well. IMPRESSION: 1. Grade 1 to 2 esophageal varices. 2. Cardiac varices, small. 3. Portal hypertensive gastropathy, mild. 4. Watermelon stomach, antrum (GAVE) fulgurated with APC probe. PLAN: 1. We will add Carafate. 2. Continue PPI therapy. 3. Follow H and H. DESCRIPTION OF PROCEDURE: The patient was then turned around after adequate lubrication of the anal canal, a flexible fiberoptic Olympus colonoscope was inserted into the rectum with ease and advanced all the way to the cecum. It was then withdrawn slowly. Mucosa overlying the cecum appeared to be within normal limits. Approximately 8 mm sessile polyp was noted in the distal ascending colon, that was hot snared. The transverse and descending grossly appeared to be within normal limits. There were some mild diverticular disease noted in the sigmoid colon. A minute polyp was hot biopsied from the sigmoid colon. The rectum grossly appeared to be within normal limits. The scope was then retroflexed into the distal rectum and moderate-sized internal hemorrhoids were noted, none of which was actively bleeding. The scope was then straightened out, it was subsequently withdrawn. The patient tolerated the procedure well. Of note, the colon particularly the left colon was excessively spastic and irritable, and suboptimally visualized. IMPRESSION: 1. Ascending colon polyp, approximately 8 mm, sessile, hot snared. 2. Diverticulosis. 3. Sigmoid colon polyp, minute, hot biopsied. 4. Internal hemorrhoids, none actively bleeding. PLAN: 1. Follow up histology. 2. The patient might benefit from a followup colonoscopy in 3 to 5 years. Ramon Ford MD [facility] [place] /[id number] cc: Shayla Waddell MD
--- NOTE | 2019-12-07 18:41 | NUR ---
dictation [id number]
--- NOTE | 2019-12-07 19:00 | Diagnostic Imaging Report ---
EXAM: Complete Abdominal Ultrasound INDICATION: ^cirrhosis of the liver ^[id number] ^[id number] ^Y COMPARISON: Abdominal ultrasound 08/15/2017 TECHNIQUE: Transverse and longitudinal images of the upper abdomen were obtained. FINDINGS: Exam limited by overlying bowel gas and motion artifact due to uncontrolled coughing Liver: Size: 11.7 cm in the right midclavicular line, normal Appearance: Increased echogenicity, smooth contour Mass: No focal masses Spleen: Size: 11.7 cm in length, normal Echogenicity: Normal Mass: No focal masses Gallbladder: Stones/Sludge: None Wall: 0.4 cm Appearance: No wall thickening, pericholecystic fluid or hydrops. Sonographic Gardner's Sign: Negative Bile Ducts: Intrahepatic Ducts: No dilatation Extrahepatic Ducts: Common bile duct measures 0.3 cm, no dilatation Pancreas: Visualized portions of the neck and proximal body are unremarkable. Kidneys: Length: Right 10.7 cm Left 12.0 cm Echogenicity: Normal Collecting System: No hydronephrosis Stone: None Cyst/Mass: None Vessels: Aorta: Visualized portions are normal Inferior Vena Cava: Visualized portions are normal Main Portal Vein: 0.7 cm, normal size with hepatopetal flow. Free Fluid: No ascites or pleural effusion IMPRESSION: 1. Increased hepatic echogenicity, consistent with steatosis. Difficult to assess liver contour for cirrhosis, given the limitations of the study. No focal lesions. 2. Mild gallbladder wall thickening, likely due to underdistention. No cholelithiasis, sludge or evidence of cholecystitis. Signed by: Dr. Ismael Elliott M.D. on 12/07/2019 6:57 PM
--- NOTE | 2019-12-07 19:15 | NUR ---
RECEIVED REPORT FROM DAY NURSE. PATIENT IS RESTING COMFORTABLY IN THE BED. BED IS IN THE LOWEST POSITION AND CALL LIGHT IS WITHIN REACH.
[2019-12-07] MEDS ORDERED: GLUCAGON FOR INJ 1 MG VIAL ONE (19:22)
[2019-12-07] MEDS ORDERED: EPHEDRINE SULFATE INJ 50 MG/ML VIAL ONE (19:22)
[2019-12-07] MEDS ORDERED: LIDOCAINE HCL 2% LOCAL INJ 5 ML SDV VIAL INJ ONE (19:22)
[2019-12-07] MEDS ORDERED: PROPOFOL IV EMULSION 10 MG/ML 20 ML VIAL ONE (19:22)
--- NOTE | 2019-12-07 19:59 | Progress Note ---
DATE: 12/07/2019 CONSULTANTS: Dr. Ford with GI. CHIEF COMPLAINT: Shortness of breath and dizziness due to anemia. SUBJECTIVE: The patient was seen in PACU, post EGD and colonoscopy. He was resting with no acute distress, no chest pain, no shortness of breath, nausea, or vomiting. PHYSICAL EXAMINATION: VITAL SIGNS: Temperature 97.0, pulse is 81, respirations 18, blood pressure 95/57, and pulse ox is 100% on room air. GENERAL: No acute distress. HEENT: Normocephalic and atraumatic. LUNGS: Clear to auscultation. CARDIOVASCULAR: Regular rate and rhythm. GI: Soft and nontender. NEUROLOGIC: Alert, awake, and oriented x3. MUSCULOSKELETAL: Moves all extremities. No edema. SKIN: Dry. LABORATORY DATA: WBC 4.69, hemoglobin 7.4, hematocrit 24.1, and platelets 51. Sodium 137, potassium 3.8, BUN is 7, creatinine 0.72, iron 46, and vitamin B12 of 187. IMPRESSION: 1. Symptomatic anemia. Hemoglobin was 4.6 upon arrival, status post 3 units of PRBCs now 7.4. GI had been consulted status post EGD and colonoscopy, which showed grade 1-2 esophageal varices, portal hypertensive gastropathy and watermelon stomach and polyps on colonoscopy. 2. Thrombocytopenia. Platelets 51. We will continue to monitor closely. No signs of bleeding likely due to cirrhosis. 3. Cirrhosis of the liver with a history of hepatitis C. We will resume his home rifaximin, lactulose and spironolactone. Ammonia is within normal limits. Protonix daily. 4. Benign prostatic hypertrophy. Continue Flomax. 5. Deep vein thrombosis prophylaxis. No anticoagulation due to anemia. PLAN: To monitor overnight, repeat labs in the a.m. and if continues to improve, we will discharge home tomorrow. Dictated by GERARD Lockwood Shayla Waddell MD MY/MODL /[id number] Pt seen and examined. Agree with the findings and plan as documented by GERARD Whitehead. MTDD
[2019-12-07] MEDS: TAMSULOSIN HCL 0.4 MG CAP PO SCH (20:09)
[2019-12-08] VITALS (8 sets, daily range): BP systolic 94–116; BP diastolic 44–84
--- NOTE | 2019-12-08 06:43 | NUR ---
REPORT GIVEN TO DAY NURSE. PATIENT IS RESTING COMFORTABLY IN THE BED. NO DISTRESS NOTED.
[2019-12-08 06:45] LABS: BASOPHILS % 0.4 % (0.0-1.0); EOSINOPHILS # (AUTO) 0.2 (0.0-0.4); EOSINOPHILS % 3.4 % (0.0-6.0); HEMATOCRIT 23.4 % (38.2-49.6); LYMPHOCYTES # (AUTO) 0.7 (1.0-3.2); LYMPHOCYTES % 13.7 % (18.0-39.1); MEAN CORPUSCULAR HEMOGLOBIN 22.8 pg (28-32); MEAN CORPUSCULAR HGB CONC 29.1 g/dL (31-35); MEAN CORPUSCULAR VOLUME 78.5 fL (81-99); MONOCYTES # (AUTO) 0.9 (0.2-0.8); MONOCYTES % 17.1 % (4.4-11.3); NEUTROPHILS # (AUTO) 3.3 (2.1-6.9); NEUTROPHILS % 64.8 % (38.7-80.0); RED BLOOD COUNT 2.98 x10e6/uL (4.3-5.7); RED CELL DISTRIBUTION WIDTH 20.5 % (11.7-14.4)
[2019-12-08 06:58] LABS: HEMOGLOBIN 6.8 g/dL (14.0-18.0)
[2019-12-08 06:59] LABS: PLATELET COUNT 49 x10e3/uL (140-360)
--- NOTE | 2019-12-08 07:00 | NUR ---
received bedside report. pt is sleeping, no s/s of distress. call light within reach and bed safety in place
[2019-12-08] MEDS ORDERED: SODIUM CHLORIDE 0.9% 250ML 250 ML IV ONE (07:15)
[2019-12-08] MEDS: LACTULOSE SYRUP 20 GM/30 ML UDC PO SCH ×2 (08:32→20:17)
[2019-12-08] MEDS: RIFAXIMIN 550 MG TABLET PO SCH ×2 (08:32→20:17)
[2019-12-08] MEDS: SPIRONOLACTONE 25 MG TAB PO SCH (08:32)
[2019-12-08] MEDS: IRON SUCROSE 100 MG in SODIUM CHLORIDE 0.9% 100 ML 100 ML IV SCH (08:32)
[2019-12-08] MEDS: CYANOCOBALAMIN INJ 1,000 MCG/ML VIAL IM SCH (08:32)
[2019-12-08] MEDS: PANTOPRAZOLE SOD 40 MG TABEC PO SCH (08:32)
[2019-12-08 14:53] LABS: HEMATOCRIT 26.7 % (38.2-49.6); HEMOGLOBIN 8.1 g/dL (14.0-18.0)
--- NOTE | 2019-12-08 19:23 | NUR ---
RECEIVED REPORT FROM DAY NURSE. PATIENT IS RESTING COMFORTABLY IN THE BED. BED IS IN THE LOWEST POSITION AND CALL LIGHT IS WITHIN REACH. WILL CONTINUE TO MONITOR PATIENT.
[2019-12-08] MEDS: TAMSULOSIN HCL 0.4 MG CAP PO SCH (20:17)
--- NOTE | 2019-12-08 20:38 | Progress Note ---
DATE: 12/08/2019 CORRECTIONAL PROGRAM OFFICER: Dr. Ramon Ford with GI. CHIEF COMPLAINT: Shortness of breath and dizziness due to anemia. SUBJECTIVE: The patient is seen, resting in bed with no acute distress. This morning his hemoglobin had dropped back down to 6.8, so transfuse 1 unit of PRBCs. He denies any shortness of breath, chest pain, nausea, vomiting, or fever. He is tolerating full liquid diet. We will advance to GI soft. PHYSICAL EXAMINATION: VITAL SIGNS: Temperature 98.1, pulse is 79, respirations 20, blood pressure 116/84, and pulse ox is 97% on room air. GENERAL: No acute distress. HEENT: Normocephalic and atraumatic. LUNGS: Clear to auscultation. CARDIOVASCULAR: Regular rate and rhythm. GI: Soft and nontender. NEUROLOGIC: Alert, awake, and oriented x3. MUSCULOSKELETAL: Moves all extremities. No edema. SKIN: Dry and intact. LABORATORY DATA: WBC 5.03, hemoglobin 6.8, hematocrit 23.4, and platelets 49. Potassium 3.8, CO2 of 21, creatinine 0.72, calcium 7.4, iron is 46. Vitamin B12 is 187. IMPRESSION: 1. Symptomatic anemia. Hemoglobin is 6.8, status post total 4 units of PRBCs. Status post EGD and colonoscopy yesterday, which showed esophageal varices, watermelon stomach and polyps in the colon. Appreciate GI input. 2. Thrombocytopenia. Platelets 49. No signs of active bleeding noted or bruising. Likely due to cirrhosis. 3. History of cirrhosis of the liver with hepatitis C. We will resume home medications and Protonix. 4. Benign prostatic hypertrophy. Continue Flomax. 5. Deep vein thrombosis prophylaxis. No anticoagulation due to anemia. PLAN: Advance his diet as tolerated. We will repeat CBC in the morning and transfuse as needed. Anticipate discharge home tomorrow. Dictated by GERARD Lockwood Shayla Waddell MD MY/MODL /[id number] Pt seen and examined. Agree with the findings and plan as documented by GERARD Whitehead. MTDD
[2019-12-09 00:16] VITALS: BP 97/48
[2019-12-09 05:27] VITALS: BP 117/68
[2019-12-09 06:05] LABS: BASOPHILS % 0.6 % (0.0-1.0); EOSINOPHILS # (AUTO) 0.2 (0.0-0.4); EOSINOPHILS % 3.7 % (0.0-6.0); HEMATOCRIT 26.5 % (38.2-49.6); HEMOGLOBIN 7.9 g/dL (14.0-18.0); LYMPHOCYTES # (AUTO) 0.8 (1.0-3.2); LYMPHOCYTES % 15.3 % (18.0-39.1); MEAN CORPUSCULAR HEMOGLOBIN 23.4 pg (28-32); MEAN CORPUSCULAR HGB CONC 29.8 g/dL (31-35); MEAN CORPUSCULAR VOLUME 78.4 fL (81-99); MONOCYTES # (AUTO) 0.9 (0.2-0.8); MONOCYTES % 16.1 % (4.4-11.3); NEUTROPHILS # (AUTO) 3.5 (2.1-6.9); NEUTROPHILS % 63.9 % (38.7-80.0); PLATELET COUNT 51 x10e3/uL (140-360); RED BLOOD COUNT 3.38 x10e6/uL (4.3-5.7); RED CELL DISTRIBUTION WIDTH 20.5 % (11.7-14.4)
--- NOTE | 2019-12-09 06:39 | NUR ---
REPORT GIVEN TO DAY NURSE. PATIENT IS RESTING COMFORTABLY IN THE BED. NO DISTRESS NOTED.
[2019-12-09 07:30] VITALS: BP 93/48
--- NOTE | 2019-12-09 07:44 | NUR ---
PATIENT IN BED RESTING WITH NO DISTRESS. REQUESTED AND RECEIVED A CUP OF ICE WATER. CALL LIGHT AT REACH.
[2019-12-09] MEDS: PANTOPRAZOLE SOD 40 MG TABEC PO SCH (08:00)
[2019-12-09] MEDS: IRON SUCROSE 100 MG in SODIUM CHLORIDE 0.9% 100 ML 100 ML IV SCH (08:00)
[2019-12-09 08:04] VITALS: BP 93/48
[2019-12-09] MEDS: SPIRONOLACTONE 25 MG TAB PO SCH (09:04)
[2019-12-09] MEDS: CYANOCOBALAMIN INJ 1,000 MCG/ML VIAL IM SCH (09:04)
[2019-12-09] MEDS: RIFAXIMIN 550 MG TABLET PO SCH (09:04)
[2019-12-09] MEDS: LACTULOSE SYRUP 20 GM/30 ML UDC PO SCH (09:04)
[2019-12-09 11:32] VITALS: BP 112/69
[2019-12-09 11:41] LABS: ANISOCYTOSIS MODERATE; POLYCHROMASIA FEW
[2019-12-09 11:43] LABS: HYPOCHROMASIA SLIGHT; MICROCYTOSIS SLIGHT; RBC MORPHOLOGY COMMENT ABNORMAL
[2019-12-09 11:45] LABS: PLATELET ESTIMATE MARKEDLY DECREASED; PLATELET MORPHOLOGY COMMENT NORMAL
--- NOTE | 2019-12-09 14:05 | NUR ---
PATIENT DISCHARGED HOME. DISCHARGE INSTRUCTIONS AND FOLLOW UP GIVEN TO PATIENT, HE VERBALIZED UNDERSTANDING. IV TO RIGHT AC REMOVED WITH TIP INTACT. ALL PERSONAL ITEMS TAKEN WITH PATIENT. LEFT UNIT PER WHEEL CHAIR TO FRONT LOBBY IN STABLE CONDITION.
--- NOTE | 2019-12-09 21:38 | Discharge Summary ---
PRIMARY CARE PHYSICIAN: Dr. Hale with [facility]. DISCHARGE DIAGNOSES: 1. Symptomatic anemia. 2. Thrombocytopenia. 3. History of liver cirrhosis with hepatitis C. 4. Benign prostatic hypertrophy. CONSULTANTS: Dr. Ramon Ford with GI. PROCEDURES: He underwent EGD and colonoscopy, which showed esophageal varices, watermelon stomach and polyps in the colon x2 removed. HISTORY: Per HPI. HOSPITAL COURSE: This is a 69-year-old male with past medical history of cirrhosis of the liver, BPH, who presented to the ER with complaints of shortness of breath and dizziness due to severe anemia. Hemoglobin upon arrival was 4.6. He received a total of 4 units of PRBCs. GI was consulted and EGD and colonoscopy was done, which showed esophageal varices, watermelon stomach and polyps in the colon. He was continued on Protonix. Monitored overnight, hemoglobin dropped to 6.8, so was given one more unit of PRBCs. Today his hemoglobin is 7.9 and tolerating diet. No melena, nausea, or vomiting. His symptoms of dizziness have resolved and vital signs stable. We will discharge home. PHYSICAL EXAMINATION: VITAL SIGNS: Temperature 97.1, pulse is 71, respirations 18, blood pressure 112/69, pulse ox is 98%. GENERAL: No acute distress. HEENT: Normocephalic, atraumatic lungs are clear to auscultation. CARDIOVASCULAR: Regular rate and rhythm. GI: Soft and nontender. NEUROLOGIC: Alert, awake, and oriented x3. MUSCULOSKELETAL: Moves all extremities. SKIN: Dry and intact. CONDITION AT DISCHARGE: Improved and stable. DISCHARGE MEDICATIONS: Please see medication reconciliation list. FOLLOWUP: Follow up with PCP in 1 to 2 weeks and GI in one month. TIME SPENT: Total discharge time is 35 minutes. Dictated by GERARD Lockwood Shayla Waddell MD MY/MODL /[id number] cc: Dr. Hale
== END 2019-12-09 13:51 | disposition home health service (06) | DRG 378 ==
LOC: ER 12:50 → ERHOLD 14:44 → MED/SURG3 20:42 → OBSVTOIN 12-07 15:02
PROVIDERS: ADMIT Internal Medicine; ATTEND Internal Medicine
PROC: 30233N1 Transfusion of Nonautologous Red Blood Cells into Peripheral Vein, Percutaneous Approach (ICD-10-PCS; principal; 2019-12-05)
PROC: 30233N1 Transfusion of Nonautologous Red Blood Cells into Peripheral Vein, Percutaneous Approach (ICD-10-PCS; 2019-12-06)
PROC: 0D568ZZ Destruction of Stomach, Via Natural or Artificial Opening Endoscopic (ICD-10-PCS; 2019-12-07)
PROC: 0D578ZZ Destruction of Stomach, Pylorus, Via Natural or Artificial Opening Endoscopic (ICD-10-PCS; 2019-12-07)
PROC: 0DBK8ZX Excision of Ascending Colon, Via Natural or Artificial Opening Endoscopic, Diagnostic (ICD-10-PCS; 2019-12-07)
PROC: 0DBN8ZX Excision of Sigmoid Colon, Via Natural or Artificial Opening Endoscopic, Diagnostic (ICD-10-PCS; 2019-12-07)
PROC: 30233N1 Transfusion of Nonautologous Red Blood Cells into Peripheral Vein, Percutaneous Approach (ICD-10-PCS; 2019-12-08)
DX: K31.811 Angiodysplasia of stomach and duodenum with bleeding (principal); K76.6 Portal hypertension; R55 Syncope and collapse; D50.9 Iron deficiency anemia, unspecified; I85.00 Esophageal varices without bleeding; K31.89 Other diseases of stomach and duodenum; K63.5 Polyp of colon; K57.30 Diverticulosis of large intestine without perforation or abscess without bleeding; K64.8 Other hemorrhoids; N40.0 Benign prostatic hyperplasia without lower urinary tract symptoms; Z82.49 Family history of ischemic heart disease and other diseases of the circulatory system; Z80.9 Family history of malignant neoplasm, unspecified; Z88.5 Allergy status to narcotic agent; Z88.0 Allergy status to penicillin; D69.6 Thrombocytopenia, unspecified; K70.30 Alcoholic cirrhosis of liver without ascites; B19.20 Unspecified viral hepatitis C without hepatic coma
CPT/HCPCS: 36415; 43255; 45384; 45385; 70450; 71045; 76700; 80048; 80053; 81001; 82140; 82550; 82553; 82607; 82746; 83540; 83880; 84443; 84466; 84484; 85014; 85018; 85025; 85045; 85610; 85730; 86850; 86900; 86920; 87086; 87635; 88305; 93005; 99284; G0378; J1610; J1756; J2001; J3010; J3420; J3430; J7040; J7050; P9016

== ENCOUNTER 2020-08-17 16:01 | Emergency (ER) | payer MEDICARE ==
[~2020-08-17] VITALS: Ht 172.7 cm; Wt 81.6 kg
[~2020-08-17 16:01] MED LIST changes: +XIFAXAN550 MG PO
[2020-08-17] MEDS ORDERED: SODIUM CHLORIDE 0.9% 1000ML 1,000 ML IV STA (17:21)
[2020-08-17] MEDS ORDERED: ASPIRIN 81 MG CHEW TAB PO ONE (17:30)
[2020-08-17 17:42] LABS: BASOPHILS % 0.2 % (0.0-1.0); EOSINOPHILS # (AUTO) 0.1 (0.0-0.4); EOSINOPHILS % 0.7 % (0.0-6.0); HEMATOCRIT 27.1 % (38.2-49.6); HEMOGLOBIN 7.5 g/dL (14.0-18.0); LYMPHOCYTES # (AUTO) 0.7 (1.0-3.2); LYMPHOCYTES % 7.9 % (18.0-39.1); MEAN CORPUSCULAR HEMOGLOBIN 22.2 pg (28-32); MEAN CORPUSCULAR HGB CONC 27.7 g/dL (31-35); MEAN CORPUSCULAR VOLUME 80.2 fL (81-99); MONOCYTES # (AUTO) 1.1 (0.2-0.8); MONOCYTES % 13.8 % (4.4-11.3); NEUTROPHILS # (AUTO) 6.3 (2.1-6.9); PLATELET COUNT 106 x10e3/uL (140-360); RED BLOOD COUNT 3.38 x10e6/uL (4.3-5.7); RED CELL DISTRIBUTION WIDTH 21.5 % (11.7-14.4)
[2020-08-17 17:54] LABS: ALANINE AMINOTRANSFERASE 31 IU/L (0-55); ALBUMIN 2.6 g/dL (3.5-5.0); ALBUMIN/GLOBULIN RATIO 0.7 (0.8-2.0); ALKALINE PHOSPHATASE 105 IU/L (40-150); ANION GAP 10.8 mmol/L (8-16); BLOOD UREA NITROGEN 16 mg/dL (7-26); BUN/CREATININE RATIO 19 (6-25); CALCIUM 7.6 mg/dL (8.4-10.2); CARBON DIOXIDE 22 mmol/L (22-29); CHLORIDE 113 mmol/L (98-107); CREATINE KINASE 104 IU/L (30-200); CREATININE, SERUM 0.86 mg/dL (0.72-1.25); EST GLOMERULAR FILTRATION RATE > 60 ML/MIN (60-); GLUCOSE 97 mg/dL (74-118); POTASSIUM 3.8 mmol/L (3.5-5.1); SODIUM 142 mmol/L (136-145)
== END 2020-08-17 19:09 | disposition home or self-care (01) ==
LOC: ER 16:07
DX: D64.9 Anemia, unspecified (principal); R53.1 Weakness; B19.20 Unspecified viral hepatitis C without hepatic coma; K21.9 Gastro-esophageal reflux disease without esophagitis
CPT/HCPCS: 36415; 70450; 71045; 80053; 82140; 82550; 82553; 83880; 84484; 85025; 85730; 99284

== ENCOUNTER 2020-11-15 13:05 | Emergency (ER) | payer MEDICARE ==
[~2020-11-15] VITALS: Ht 172.7 cm; Wt 81.6 kg
== END 2020-11-15 14:00 | disposition home or self-care (01) ==
LOC: ER 13:51
DX: R18.8 Other ascites (principal); K74.60 Unspecified cirrhosis of liver; K43.9 Ventral hernia without obstruction or gangrene; K21.9 Gastro-esophageal reflux disease without esophagitis
CPT/HCPCS: 99282

== ENCOUNTER 2020-11-24 16:40 | Emergency (ER) | payer MEDICARE ==
[~2020-11-24] VITALS: Ht 172.7 cm; Wt 81.6 kg
== END 2020-11-24 17:20 | disposition home or self-care (01) ==
LOC: ER 17:13
DX: R18.8 Other ascites (principal); K74.60 Unspecified cirrhosis of liver
CPT/HCPCS: 99282

== ENCOUNTER 2021-01-23 22:06 | Emergency (ER) | payer MEDICARE ==
[~2021-01-23] VITALS: Ht 172.7 cm; Wt 81.6 kg
== END 2021-01-24 02:10 | disposition home or self-care (01) ==
LOC: ER 23:16
DX: S01.111A Laceration without foreign body of right eyelid and periocular area, initial encounter (principal); W01.0XXA Fall on same level from slipping, tripping and stumbling without subsequent striking against object, initial encounter; Y93.01 Activity, walking, marching and hiking; Y92.008 Other place in unspecified non-institutional (private) residence as the place of occurrence of the external cause; K76.9 Liver disease, unspecified; K21.9 Gastro-esophageal reflux disease without esophagitis
CPT/HCPCS: 70450; 72125; 99283

== ENCOUNTER 2021-04-09 20:08 | Inpatient (IN) | payer MEDICARE ==
[~2021-04-09] VITALS: Ht 172.7 cm; Wt 81.6 kg
[2021-04-09 20:43] LABS: BASOPHILS % 0.3 % (0.0-1.0); EOSINOPHILS # (AUTO) 0.2 (0.0-0.4); EOSINOPHILS % 3.4 % (0.0-6.0); HEMOGLOBIN 8.5 g/dL (14.0-18.0); LYMPHOCYTES # (AUTO) 0.6 (1.0-3.2); LYMPHOCYTES % 9.5 % (18.0-39.1); MEAN CORPUSCULAR HEMOGLOBIN 27.6 pg (28-32); MEAN CORPUSCULAR HGB CONC 30.4 g/dL (31-35); MEAN CORPUSCULAR VOLUME 90.9 fL (81-99); MONOCYTES # (AUTO) 0.9 (0.2-0.8); MONOCYTES % 14.6 % (4.4-11.3); NEUTROPHILS # (AUTO) 4.4 (2.1-6.9); NEUTROPHILS % 71.7 % (38.7-80.0); RED BLOOD COUNT 3.08 x10e6/uL (4.3-5.7); RED CELL DISTRIBUTION WIDTH 20.7 % (11.7-14.4)
[2021-04-09 20:46] LABS: PLATELET COUNT 79 x10e3/uL (140-360)
[2021-04-09 20:51] LABS: INR 1.34; PROTHROMBIN TIME 16.8 seconds (11.9-14.5)
[2021-04-09 20:52] LABS: PARTIAL THROMBOPLASTIN TIME 37.4 seconds (23.8-35.5)
[2021-04-09 21:00] LABS: ALBUMIN 1.9 g/dL (3.5-5.0); ANION GAP 8.9 mmol/L (8-16); CREATININE, SERUM 1.01 mg/dL (0.72-1.25); POTASSIUM 3.9 mmol/L (3.5-5.1)
[2021-04-09 21:01] LABS: ALBUMIN/GLOBULIN RATIO 0.5 (0.8-2.0)
[2021-04-09 21:06] LABS: CALCIUM 6.9 mg/dL (8.4-10.2)
[2021-04-09 21:07] LABS: CREATINE KINASE MB 3.1 ng/mL (0-5.0)
[2021-04-09] MEDS ORDERED: CALCIUM GLUCONATE 10% INJ 4.65 MEQ in SODIUM CHLORIDE 0.9% 50ML 50 ML IV ONE (21:15)
[2021-04-09 21:43] LABS: CLARITY,URINE CLEAR (CLEAR); COLOR,URINE AMBER (YELLOW); KETONES,URINE 1+ (NEGATIVE); LEUKOCYTE ESTERASE ,URINE NEGATIVE (NEGATIVE); NITRITE,URINE NEGATIVE (NEGATIVE); PROTEIN,URINE DIPSTICK TRACE (NEGATIVE); URINE UROBILINOGEN 0.2 mg/dL (0.2 - 1)
[2021-04-09 21:48] LABS: BACTERIA,URINE FEW /HPF; EPITHELIAL CELLS,URINE RARE /LPF; RBC,URINE 0-5 /HPF (0-5); WBC,URINE (MAN) 0-5 /HPF (0-5)
[2021-04-09] MEDS ORDERED: LACTULOSE SYRUP 20 GM/30 ML UDC PO PRN (22:30)
[2021-04-10] VITALS (8 sets, daily range): BP systolic 93–123; BP diastolic 57–80
[2021-04-10] MEDS ORDERED: ONDANSETRON HCL INJ 2MG/ML 2ML 2 MG/ML VIAL IV PRN (10:00)
[2021-04-10 10:48] LABS: BASOPHILS % 0.3 % (0.0-1.0); EOSINOPHILS # (AUTO) 0.2 (0.0-0.4); EOSINOPHILS % 3.2 % (0.0-6.0); HEMATOCRIT 25.3 % (38.2-49.6); HEMOGLOBIN 7.8 g/dL (14.0-18.0); LYMPHOCYTES # (AUTO) 0.6 (1.0-3.2); LYMPHOCYTES % 9.8 % (18.0-39.1); MEAN CORPUSCULAR HEMOGLOBIN 27.9 pg (28-32); MEAN CORPUSCULAR HGB CONC 30.8 g/dL (31-35); MEAN CORPUSCULAR VOLUME 90.4 fL (81-99); MONOCYTES # (AUTO) 0.9 (0.2-0.8); MONOCYTES % 14.7 % (4.4-11.3); NEUTROPHILS # (AUTO) 4.3 (2.1-6.9); NEUTROPHILS % 71.7 % (38.7-80.0); PLATELET COUNT 70 x10e3/uL (140-360); RED CELL DISTRIBUTION WIDTH 20.5 % (11.7-14.4)
[2021-04-10 11:13] LABS: CREATININE, SERUM 0.77 mg/dL (0.72-1.25); POTASSIUM 4.3 mmol/L (3.5-5.1)
[2021-04-10 11:14] LABS: ANION GAP 5.3 mmol/L (8-16)
[2021-04-10 11:16] LABS: CALCIUM 6.9 mg/dL (8.4-10.2)
[2021-04-10 11:39] LABS: CREATINE KINASE MB 2.2 ng/mL (0-5.0)
[2021-04-10] MEDS ORDERED: SODIUM CHLORIDE 0.9% 250ML 250 ML ONE (12:36)
[2021-04-10] MEDS ORDERED: CALCIUM GLUCONATE 10% INJ 4.65 MEQ in SODIUM CHLORIDE 0.9% 50ML 50 ML IV ONE (13:00)
[2021-04-10 14:41] LABS: CREATINE KINASE 86 IU/L (30-200)
[2021-04-10] MEDS: LACTULOSE SYRUP 20 GM/30 ML UDC PO SCH (17:00)
[2021-04-10] MEDS: RIFAXIMIN 550 MG TABLET PO SCH (17:00)
[2021-04-10] MEDS: TAMSULOSIN HCL 0.4 MG CAP PO SCH (17:00)
[2021-04-10 20:44] LABS: CREATINE KINASE MB 1.9 ng/mL (0-5.0)
[2021-04-11] VITALS (8 sets, daily range): BP systolic 96–120; BP diastolic 45–79
[2021-04-11 06:19] LABS: BASOPHILS % 0.4 % (0.0-1.0); EOSINOPHILS # (AUTO) 0.2 (0.0-0.4); EOSINOPHILS % 4.6 % (0.0-6.0); HEMATOCRIT 24.8 % (38.2-49.6); HEMOGLOBIN 7.5 g/dL (14.0-18.0); LYMPHOCYTES # (AUTO) 0.7 (1.0-3.2); LYMPHOCYTES % 14.3 % (18.0-39.1); MEAN CORPUSCULAR HEMOGLOBIN 27.3 pg (28-32); MEAN CORPUSCULAR HGB CONC 30.2 g/dL (31-35); MEAN CORPUSCULAR VOLUME 90.2 fL (81-99); MONOCYTES # (AUTO) 0.8 (0.2-0.8); MONOCYTES % 14.5 % (4.4-11.3); NEUTROPHILS # (AUTO) 3.4 (2.1-6.9); PLATELET COUNT 68 x10e3/uL (140-360); RED BLOOD COUNT 2.75 x10e6/uL (4.3-5.7); RED CELL DISTRIBUTION WIDTH 20.5 % (11.7-14.4)
[2021-04-11 06:55] LABS: ALBUMIN 1.6 g/dL (3.5-5.0); ALBUMIN/GLOBULIN RATIO 0.5 (0.8-2.0); CREATININE, SERUM 0.73 mg/dL (0.72-1.25)
[2021-04-11 07:06] LABS: CALCIUM 6.7 mg/dL (8.4-10.2)
[2021-04-11 07:14] LABS: ANION GAP 6.8 mmol/L (8-16); POTASSIUM 3.8 mmol/L (3.5-5.1)
[2021-04-11] MEDS: TAMSULOSIN HCL 0.4 MG CAP PO SCH ×2 (09:00→16:42)
[2021-04-11] MEDS: LACTULOSE SYRUP 20 GM/30 ML UDC PO SCH ×3 (09:00→20:21)
[2021-04-11] MEDS: PANTOPRAZOLE SOD 40 MG TABEC PO SCH (09:00)
[2021-04-11] MEDS: RIFAXIMIN 550 MG TABLET PO SCH ×2 (09:00→16:43)
[2021-04-11] MEDS: SPIRONOLACTONE 25 MG TAB PO SCH (09:00)
[2021-04-11] MEDS ORDERED: CALCIUM CHLORIDE 13.6 MEQ in SODIUM CHLORIDE 0.9% 100 ML 100 ML IV ONE (14:30)
[2021-04-11] MEDS: FERROUS SULFATE 325 MG TAB PO SCH (16:42)
[2021-04-12] VITALS (8 sets, daily range): BP systolic 97–110; BP diastolic 50–69
[2021-04-12 06:00] LABS: BASOPHILS % 0.5 % (0.0-1.0); EOSINOPHILS # (AUTO) 0.2 (0.0-0.4); EOSINOPHILS % 4.6 % (0.0-6.0); HEMATOCRIT 21.7 % (38.2-49.6); LYMPHOCYTES # (AUTO) 0.7 (1.0-3.2); LYMPHOCYTES % 16.9 % (18.0-39.1); MEAN CORPUSCULAR HEMOGLOBIN 27.8 pg (28-32); MEAN CORPUSCULAR HGB CONC 30.9 g/dL (31-35); MONOCYTES # (AUTO) 0.8 (0.2-0.8); MONOCYTES % 17.3 % (4.4-11.3); NEUTROPHILS # (AUTO) 2.6 (2.1-6.9); NEUTROPHILS % 60.2 % (38.7-80.0); PLATELET COUNT 61 x10e3/uL (140-360); RED BLOOD COUNT 2.41 x10e6/uL (4.3-5.7); RED CELL DISTRIBUTION WIDTH 20.1 % (11.7-14.4)
[2021-04-12 06:25] LABS: ALBUMIN 1.5 g/dL (3.5-5.0); ALBUMIN/GLOBULIN RATIO 0.6 (0.8-2.0); ANION GAP 6.3 mmol/L (8-16); CREATININE, SERUM 0.75 mg/dL (0.72-1.25); POTASSIUM 4.3 mmol/L (3.5-5.1)
[2021-04-12 06:51] LABS: HEMOGLOBIN 6.7 g/dL (14.0-18.0)
[2021-04-12] MEDS ORDERED: SODIUM CHLORIDE 0.9% 250ML 250 ML IV ONE (07:20)
[2021-04-12] MEDS: SPIRONOLACTONE 25 MG TAB PO SCH (09:22)
[2021-04-12] MEDS: TAMSULOSIN HCL 0.4 MG CAP PO SCH ×2 (09:22→17:39)
[2021-04-12] MEDS: FERROUS SULFATE 325 MG TAB PO SCH ×2 (09:22→17:39)
[2021-04-12] MEDS: LACTULOSE SYRUP 20 GM/30 ML UDC PO SCH ×3 (09:22→21:06)
[2021-04-12] MEDS: PANTOPRAZOLE SOD 40 MG TABEC PO SCH (09:23)
[2021-04-12] MEDS: RIFAXIMIN 550 MG TABLET PO SCH ×2 (09:23→17:39)
[2021-04-12] MEDS ORDERED: CALCIUM CHLORIDE 13.6 MEQ in SODIUM CHLORIDE 0.9% 100 ML 100 ML IV ONE (13:15)
[2021-04-13] VITALS (8 sets, daily range): BP systolic 91–110; BP diastolic 60–74
[2021-04-13] MEDS ORDERED: SODIUM CHLORIDE 0.9% 250ML 250 ML ONE (01:00)
[2021-04-13 05:43] LABS: CALCIUM 7.2 mg/dL (8.4-10.2); CREATININE, SERUM 0.78 mg/dL (0.72-1.25); POTASSIUM 3.8 mmol/L (3.5-5.1)
[2021-04-13 05:44] LABS: ANION GAP 6.8 mmol/L (8-16)
[2021-04-13 06:56] LABS: BASOPHILS % 0.5 % (0.0-1.0); EOSINOPHILS # (AUTO) 0.2 (0.0-0.4); EOSINOPHILS % 3.9 % (0.0-6.0); HEMOGLOBIN 7.3 g/dL (14.0-18.0); LYMPHOCYTES # (AUTO) 0.8 (1.0-3.2); LYMPHOCYTES % 17.6 % (18.0-39.1); MEAN CORPUSCULAR HGB CONC 31.7 g/dL (31-35); MEAN CORPUSCULAR VOLUME 88.1 fL (81-99); MONOCYTES # (AUTO) 0.7 (0.2-0.8); NEUTROPHILS # (AUTO) 2.7 (2.1-6.9); NEUTROPHILS % 62.5 % (38.7-80.0); PLATELET COUNT 70 x10e3/uL (140-360); RED BLOOD COUNT 2.61 x10e6/uL (4.3-5.7); RED CELL DISTRIBUTION WIDTH 18.9 % (11.7-14.4)
[2021-04-13] MEDS: SPIRONOLACTONE 25 MG TAB PO SCH (09:30)
[2021-04-13] MEDS: LACTULOSE SYRUP 20 GM/30 ML UDC PO SCH ×3 (09:30→21:27)
[2021-04-13] MEDS: TAMSULOSIN HCL 0.4 MG CAP PO SCH ×2 (09:30→15:49)
[2021-04-13] MEDS: FERROUS SULFATE 325 MG TAB PO SCH ×2 (09:30→15:49)
[2021-04-13] MEDS: RIFAXIMIN 550 MG TABLET PO SCH ×2 (09:30→15:49)
[2021-04-13] MEDS: PANTOPRAZOLE SOD 40 MG TABEC PO SCH (09:30)
[2021-04-13] MEDS ORDERED: CALCIUM CHLORIDE 13.6 MEQ in SODIUM CHLORIDE 0.9% 100 ML 100 ML IV ONE (13:35)
[2021-04-14] VITALS (8 sets, daily range): BP systolic 99–124; BP diastolic 54–78
[2021-04-14 05:13] LABS: BASOPHILS % 0.2 % (0.0-1.0); EOSINOPHILS # (AUTO) 0.2 (0.0-0.4); EOSINOPHILS % 3.3 % (0.0-6.0); HEMATOCRIT 22.9 % (38.2-49.6); HEMOGLOBIN 7.2 g/dL (14.0-18.0); LYMPHOCYTES # (AUTO) 0.9 (1.0-3.2); LYMPHOCYTES % 16.6 % (18.0-39.1); MEAN CORPUSCULAR HEMOGLOBIN 28.3 pg (28-32); MEAN CORPUSCULAR HGB CONC 31.4 g/dL (31-35); MEAN CORPUSCULAR VOLUME 90.2 fL (81-99); MONOCYTES # (AUTO) 0.7 (0.2-0.8); MONOCYTES % 13.8 % (4.4-11.3); NEUTROPHILS # (AUTO) 3.4 (2.1-6.9); NEUTROPHILS % 65.3 % (38.7-80.0); PLATELET COUNT 60 x10e3/uL (140-360); RED BLOOD COUNT 2.54 x10e6/uL (4.3-5.7); RED CELL DISTRIBUTION WIDTH 18.8 % (11.7-14.4)
[2021-04-14] MEDS: LACTULOSE SYRUP 20 GM/30 ML UDC PO SCH ×3 (08:53→21:15)
[2021-04-14] MEDS: FERROUS SULFATE 325 MG TAB PO SCH ×2 (08:53→16:23)
[2021-04-14] MEDS: PANTOPRAZOLE SOD 40 MG TABEC PO SCH (08:53)
[2021-04-14] MEDS: TAMSULOSIN HCL 0.4 MG CAP PO SCH ×2 (08:53→16:23)
[2021-04-14] MEDS: SPIRONOLACTONE 25 MG TAB PO SCH (08:53)
[2021-04-14] MEDS: RIFAXIMIN 550 MG TABLET PO SCH ×2 (08:53→16:23)
[2021-04-14] MEDS ORDERED: ONDANSETRON HCL 4 MG ORAL DISINTEGRATING TAB PO PRN (10:45)
[2021-04-15] VITALS (8 sets, daily range): BP systolic 104–111; BP diastolic 60–72
[2021-04-15] MEDS: LACTULOSE SYRUP 20 GM/30 ML UDC PO SCH ×3 (09:45→20:54)
[2021-04-15] MEDS: PANTOPRAZOLE SOD 40 MG TABEC PO SCH (09:45)
[2021-04-15] MEDS: FERROUS SULFATE 325 MG TAB PO SCH ×2 (09:45→17:41)
[2021-04-15] MEDS: SPIRONOLACTONE 25 MG TAB PO SCH (09:45)
[2021-04-15] MEDS: TAMSULOSIN HCL 0.4 MG CAP PO SCH ×2 (09:45→17:41)
[2021-04-15] MEDS: RIFAXIMIN 550 MG TABLET PO SCH ×2 (09:45→17:41)
[2021-04-15 13:59] LABS: BASOPHILS % 0.4 % (0.0-1.0); EOSINOPHILS # (AUTO) 0.1 (0.0-0.4); EOSINOPHILS % 2.3 % (0.0-6.0); HEMATOCRIT 26.5 % (38.2-49.6); HEMOGLOBIN 8.1 g/dL (14.0-18.0); LYMPHOCYTES # (AUTO) 0.9 (1.0-3.2); LYMPHOCYTES % 15.2 % (18.0-39.1); MEAN CORPUSCULAR HEMOGLOBIN 28.4 pg (28-32); MEAN CORPUSCULAR HGB CONC 30.6 g/dL (31-35); MONOCYTES # (AUTO) 0.8 (0.2-0.8); MONOCYTES % 14.5 % (4.4-11.3); NEUTROPHILS # (AUTO) 3.8 (2.1-6.9); NEUTROPHILS % 67.2 % (38.7-80.0); PLATELET COUNT 80 x10e3/uL (140-360); RED BLOOD COUNT 2.85 x10e6/uL (4.3-5.7); RED CELL DISTRIBUTION WIDTH 19.5 % (11.7-14.4)
[2021-04-15 14:32] LABS: ANION GAP 10.2 mmol/L (8-16); CALCIUM 7.2 mg/dL (8.4-10.2); CREATININE, SERUM 0.76 mg/dL (0.72-1.25); POTASSIUM 4.2 mmol/L (3.5-5.1)
[2021-04-15] MEDS ORDERED: LACTULOSE SYRUP 20 GM/30 ML UDC PO ONE (15:30)
[2021-04-16] VITALS (7 sets, daily range): BP systolic 90–105; BP diastolic 49–71
[2021-04-16] MEDS: TAMSULOSIN HCL 0.4 MG CAP PO SCH ×2 (09:30→22:23)
[2021-04-16] MEDS: PANTOPRAZOLE SOD 40 MG TABEC PO SCH (09:30)
[2021-04-16] MEDS: RIFAXIMIN 550 MG TABLET PO SCH ×2 (09:30→17:05)
[2021-04-16] MEDS: FERROUS SULFATE 325 MG TAB PO SCH (09:30)
[2021-04-16] MEDS: LACTULOSE SYRUP 20 GM/30 ML UDC PO SCH ×3 (09:30→22:23)
[2021-04-17] VITALS (7 sets, daily range): BP systolic 96–117; BP diastolic 51–74
[2021-04-17] MEDS: RIFAXIMIN 550 MG TABLET PO SCH ×2 (09:01→17:47)
[2021-04-17] MEDS: LACTULOSE SYRUP 20 GM/30 ML UDC PO SCH ×3 (09:01→21:52)
[2021-04-17] MEDS: PANTOPRAZOLE SOD 40 MG TABEC PO SCH (09:01)
[2021-04-17 15:25] LABS: BASOPHILS % 0.3 % (0.0-1.0); EOSINOPHILS # (AUTO) 0.1 (0.0-0.4); EOSINOPHILS % 2.1 % (0.0-6.0); HEMATOCRIT 23.1 % (38.2-49.6); LYMPHOCYTES # (AUTO) 0.7 (1.0-3.2); LYMPHOCYTES % 11.2 % (18.0-39.1); MEAN CORPUSCULAR HEMOGLOBIN 27.8 pg (28-32); MEAN CORPUSCULAR HGB CONC 29.9 g/dL (31-35); MEAN CORPUSCULAR VOLUME 93.1 fL (81-99); MONOCYTES # (AUTO) 0.8 (0.2-0.8); MONOCYTES % 12.9 % (4.4-11.3); NEUTROPHILS # (AUTO) 4.4 (2.1-6.9); PLATELET COUNT 75 x10e3/uL (140-360); RED BLOOD COUNT 2.48 x10e6/uL (4.3-5.7); RED CELL DISTRIBUTION WIDTH 19.1 % (11.7-14.4)
[2021-04-17 15:31] LABS: HEMOGLOBIN 6.9 g/dL (14.0-18.0)
[2021-04-17 15:37] LABS: ALBUMIN 1.6 g/dL (3.5-5.0); ALBUMIN/GLOBULIN RATIO 0.5 (0.8-2.0); CALCIUM 7.1 mg/dL (8.4-10.2); CREATININE, SERUM 0.75 mg/dL (0.72-1.25)
[2021-04-17] MEDS: TAMSULOSIN HCL 0.4 MG CAP PO SCH (21:52)
[2021-04-17 22:11] LABS: HYPOCHROMASIA MODERATE; LYMPHOCYTES % (MANUAL) 11 % (19-48); MONOCYTES % (MANUAL) 6 % (3.4-9.0); NEUTROPHILS % (MANUAL) 83 % (40-74); PLATELET MORPHOLOGY COMMENT NORMAL
[2021-04-17 22:12] LABS: PLATELET ESTIMATE MODERATELY DECREASED
[2021-04-18] VITALS (7 sets, daily range): BP systolic 95–115; BP diastolic 64–82
[2021-04-18 06:04] LABS: BASOPHILS % 0.4 % (0.0-1.0); EOSINOPHILS # (AUTO) 0.1 (0.0-0.4); EOSINOPHILS % 2.5 % (0.0-6.0); LYMPHOCYTES # (AUTO) 0.8 (1.0-3.2); LYMPHOCYTES % 15.4 % (18.0-39.1); MEAN CORPUSCULAR HEMOGLOBIN 27.6 pg (28-32); MEAN CORPUSCULAR HGB CONC 27.5 g/dL (31-35); MEAN CORPUSCULAR VOLUME 100.4 fL (81-99); MONOCYTES # (AUTO) 0.9 (0.2-0.8); MONOCYTES % 17.6 % (4.4-11.3); NEUTROPHILS # (AUTO) 3.1 (2.1-6.9); NEUTROPHILS % 63.7 % (38.7-80.0); PLATELET COUNT 71 x10e3/uL (140-360); RED BLOOD COUNT 2.39 x10e6/uL (4.3-5.7); RED CELL DISTRIBUTION WIDTH 19.7 % (11.7-14.4)
[2021-04-18 06:37] LABS: ALBUMIN 1.5 g/dL (3.5-5.0); ANION GAP 9.8 mmol/L (8-16); BILIRUBIN,DIRECT 0.4 mg/dL (0.0-0.5); CALCIUM 7.1 mg/dL (8.4-10.2); CREATININE, SERUM 0.75 mg/dL (0.72-1.25); MAGNESIUM 1.8 MG/DL (1.3-2.1); POTASSIUM 3.8 mmol/L (3.5-5.1)
[2021-04-18 06:39] LABS: HEMOGLOBIN 6.6 g/dL (14.0-18.0)
[2021-04-18] MEDS ORDERED: SODIUM CHLORIDE 0.9% 250ML 250 ML IV ONE (07:30)
[2021-04-18] MEDS: RIFAXIMIN 550 MG TABLET PO SCH ×2 (08:38→17:15)
[2021-04-18] MEDS: LACTULOSE SYRUP 20 GM/30 ML UDC PO SCH ×3 (08:38→21:19)
[2021-04-18] MEDS: PANTOPRAZOLE SOD 40 MG TABEC PO SCH (08:38)
[2021-04-18] MEDS ORDERED: SODIUM CHLORIDE 0.9% 500ML 500 ML ONE (10:38)
[2021-04-18] MEDS: TAMSULOSIN HCL 0.4 MG CAP PO SCH (21:19)
[2021-04-19] VITALS (7 sets, daily range): BP systolic 104–110; BP diastolic 66–75
[2021-04-19] MEDS: LACTULOSE SYRUP 20 GM/30 ML UDC PO SCH ×3 (09:00→21:00)
[2021-04-19] MEDS: PANTOPRAZOLE SOD 40 MG TABEC PO SCH (09:00)
[2021-04-19] MEDS: RIFAXIMIN 550 MG TABLET PO SCH ×2 (09:00→17:00)
[2021-04-19 10:43] LABS: HEMATOCRIT 23.7 % (38.2-49.6); HEMOGLOBIN 7.5 g/dL (14.0-18.0)
[2021-04-19] MEDS: TAMSULOSIN HCL 0.4 MG CAP PO SCH (21:00)
[2021-04-20] VITALS (9 sets, daily range): BP systolic 100–118; BP diastolic 63–76
[2021-04-20] MEDS ORDERED: METRONIDAZOLE 500MG/NS 100ML 100 ML IV SCH (02:20)
[2021-04-20] MEDS ORDERED: SODIUM CHLORIDE 0.9% 250ML 250 ML ONE (02:56)
[2021-04-20] MEDS ORDERED: LACTULOSE SYRUP 20 GM/30 ML UDC RC SCH ×2 (03:00→07:00)
[2021-04-20] MEDS ORDERED: LACTULOSE SYRUP 20 GM/30 ML UDC RC ONE (03:20)
[2021-04-20 05:05] LABS: BASOPHILS # (AUTO) 0.1 (0.0-0.1); BASOPHILS % 0.7 % (0.0-1.0); EOSINOPHILS # (AUTO) 0.3 (0.0-0.4); EOSINOPHILS % 4.5 % (0.0-6.0); HEMATOCRIT 24.3 % (38.2-49.6); HEMOGLOBIN 7.4 g/dL (14.0-18.0); LYMPHOCYTES # (AUTO) 1.2 (1.0-3.2); LYMPHOCYTES % 17.3 % (18.0-39.1); MEAN CORPUSCULAR HEMOGLOBIN 27.6 pg (28-32); MEAN CORPUSCULAR HGB CONC 30.5 g/dL (31-35); MEAN CORPUSCULAR VOLUME 90.7 fL (81-99); MONOCYTES # (AUTO) 1.4 (0.2-0.8); MONOCYTES % 20.7 % (4.4-11.3); NEUTROPHILS # (AUTO) 3.8 (2.1-6.9); NEUTROPHILS % 56.2 % (38.7-80.0); PLATELET COUNT 86 x10e3/uL (140-360); RED BLOOD COUNT 2.68 x10e6/uL (4.3-5.7); RED CELL DISTRIBUTION WIDTH 18.5 % (11.7-14.4)
[2021-04-20 05:34] LABS: ALBUMIN 1.6 g/dL (3.5-5.0); ANION GAP 8.7 mmol/L (8-16); BILIRUBIN,DIRECT 0.4 mg/dL (0.0-0.5); CREATININE, SERUM 0.72 mg/dL (0.72-1.25); POTASSIUM 3.7 mmol/L (3.5-5.1)
[2021-04-20 05:39] LABS: CALCIUM 6.9 mg/dL (8.4-10.2)
[2021-04-20] MEDS ORDERED: CALCIUM GLUCONATE 10% INJ 4.65 MEQ in SODIUM CHLORIDE 0.9% 50ML 50 ML IV ONE (06:15)
[2021-04-20] MEDS: METRONIDAZOLE 500MG/NS 100ML 100 ML IV SCH ×3 (08:30→21:00)
[2021-04-20] MEDS: LACTULOSE SYRUP 20 GM/30 ML UDC RC SCH ×7 (08:30→23:30)
[2021-04-20] MEDS ORDERED: GADOBENATE DIMEGLUMINE 1 ML IV ONE (08:58)
[2021-04-20] MEDS ORDERED: SODIUM CHLORIDE 0.9% 50ML 50 ML ONE (08:58)
[2021-04-20] MEDS: RIFAXIMIN 550 MG TABLET PO SCH (09:00)
[2021-04-20] MEDS: LACTULOSE SYRUP 20 GM/30 ML UDC PO SCH ×3 (09:00→21:00)
[2021-04-20] MEDS: PANTOPRAZOLE SOD 40 MG TABEC PO SCH (09:00)
[2021-04-20 15:07] LABS: BODY FLUID APPEARANCE SL.CLOUDY; BODY FLUID COLOR STRAW; BODY FLUID TYPE PERITONEAL
[2021-04-20 15:09] LABS: RBC,BODY FLUID < 2000 cells/uL; WBC,BODY FLUID 104 cells/uL
[2021-04-20 16:44] LABS: LYMPHOCYTES,BODY FLUID 18 %; MONO/MACROPHG,BODY FLUID 60 %; NEUTROPHILS,BODY FLUID 16 %; OTHER CELLS,BODY FLUID 6 %
[2021-04-20] MEDS: TAMSULOSIN HCL 0.4 MG CAP PO SCH (21:00)
[2021-04-21] VITALS (7 sets, daily range): BP systolic 84–114; BP diastolic 58–78
[2021-04-21] MEDS ORDERED: RIFAXIMIN 550 MG TABLET PO ONE (00:30)
[2021-04-21 01:03] LABS: TOTAL IRON BINDING CAPACITY 206 ug/dL (261-478); TRANSFERRIN 147 mg/dL (174-364)
[2021-04-21 01:52] LABS: % IRON SATURATION 8 % (15-50); IRON 17 ug/dL (65-175)
[2021-04-21] MEDS: METRONIDAZOLE 500MG/NS 100ML 100 ML IV SCH ×4 (03:04→21:00)
[2021-04-21] MEDS: LACTULOSE SYRUP 20 GM/30 ML UDC RC SCH ×2 (03:24→07:30)
[2021-04-21 05:02] LABS: BASOPHILS % 0.5 % (0.0-1.0); EOSINOPHILS # (AUTO) 0.1 (0.0-0.4); EOSINOPHILS % 2.1 % (0.0-6.0); HEMATOCRIT 24.6 % (38.2-49.6); HEMOGLOBIN 7.2 g/dL (14.0-18.0); LYMPHOCYTES # (AUTO) 0.7 (1.0-3.2); LYMPHOCYTES % 11.5 % (18.0-39.1); MEAN CORPUSCULAR HEMOGLOBIN 26.8 pg (28-32); MEAN CORPUSCULAR HGB CONC 29.3 g/dL (31-35); MEAN CORPUSCULAR VOLUME 91.4 fL (81-99); MONOCYTES # (AUTO) 1.1 (0.2-0.8); MONOCYTES % 18.5 % (4.4-11.3); NEUTROPHILS # (AUTO) 3.9 (2.1-6.9); NEUTROPHILS % 67.1 % (38.7-80.0); PLATELET COUNT 88 x10e3/uL (140-360); RED BLOOD COUNT 2.69 x10e6/uL (4.3-5.7); RED CELL DISTRIBUTION WIDTH 18.6 % (11.7-14.4)
[2021-04-21 05:26] LABS: ALBUMIN 1.6 g/dL (3.5-5.0); ANION GAP 7.2 mmol/L (8-16); BILIRUBIN,DIRECT 0.4 mg/dL (0.0-0.5); CALCIUM 7.2 mg/dL (8.4-10.2); CREATININE, SERUM 0.78 mg/dL (0.72-1.25); POTASSIUM 3.2 mmol/L (3.5-5.1)
[2021-04-21 07:23] LABS: EOSINOPHILS % (MANUAL) 4 % (0-7); LYMPHOCYTES % (MANUAL) 38 % (19-48); MONOCYTES % (MANUAL) 5 % (3.4-9.0); NEUTROPHILS % (MANUAL) 53 % (40-74); PLATELET MORPHOLOGY COMMENT NORMAL; RBC MORPHOLOGY COMMENT NORMAL
[2021-04-21 07:33] LABS: PLATELET ESTIMATE SLIGHTLY DECREASED
[2021-04-21] MEDS: RIFAXIMIN 550 MG TABLET PO SCH ×2 (09:14→17:16)
[2021-04-21] MEDS: LACTULOSE SYRUP 20 GM/30 ML UDC PO SCH ×3 (09:14→21:00)
[2021-04-21] MEDS: PANTOPRAZOLE SOD 40 MG TABEC PO SCH (09:14)
[2021-04-21] MEDS ORDERED: SODIUM CHLORIDE 0.9% 250ML 250 ML ONE (09:15)
[2021-04-21] MEDS ORDERED: POTASSIUM CHLORIDE 20MEQ/100ML 200 ML IV ONE (09:30)
[2021-04-21] MEDS ORDERED: CYANOCOBALAMIN INJ 1,000 MCG/ML VIAL IM ONE (12:45)
[2021-04-21] MEDS ORDERED: SODIUM CHLORIDE 0.9% 250ML 250 ML IV ONE (13:15)
[2021-04-21] MEDS ORDERED: IRON SUCROSE 100 MG in SODIUM CHLORIDE 0.9% 100 ML 100 ML IV SCH (15:00)
[2021-04-21] MEDS ORDERED: POTASSIUM CHLORIDE 20 MEQ TAB CR PO ONE (19:50)
[2021-04-21] MEDS: TAMSULOSIN HCL 0.4 MG CAP PO SCH (21:00)
[2021-04-22] VITALS (7 sets, daily range): BP systolic 89–113; BP diastolic 58–72
[2021-04-22] MEDS: METRONIDAZOLE 500MG/NS 100ML 100 ML IV SCH ×2 (03:00→09:00)
[2021-04-22 05:02] LABS: BASOPHILS % 0.4 % (0.0-1.0); EOSINOPHILS # (AUTO) 0.2 (0.0-0.4); HEMATOCRIT 22.1 % (38.2-49.6); LYMPHOCYTES # (AUTO) 0.3 (1.0-3.2); LYMPHOCYTES % 6.7 % (18.0-39.1); MEAN CORPUSCULAR HEMOGLOBIN 27.1 pg (28-32); MEAN CORPUSCULAR HGB CONC 30.8 g/dL (31-35); MONOCYTES # (AUTO) 0.8 (0.2-0.8); NEUTROPHILS # (AUTO) 3.6 (2.1-6.9); NEUTROPHILS % 73.3 % (38.7-80.0); PLATELET COUNT 83 x10e3/uL (140-360); RED BLOOD COUNT 2.51 x10e6/uL (4.3-5.7); RED CELL DISTRIBUTION WIDTH 18.1 % (11.7-14.4)
[2021-04-22 05:18] LABS: HEMOGLOBIN 6.8 g/dL (14.0-18.0)
[2021-04-22 05:23] LABS: ALBUMIN 1.7 g/dL (3.5-5.0); ALBUMIN/GLOBULIN RATIO 0.5 (0.8-2.0); ANION GAP 8.2 mmol/L (8-16); CREATININE, SERUM 0.77 mg/dL (0.72-1.25); POTASSIUM 3.2 mmol/L (3.5-5.1)
[2021-04-22] MEDS ORDERED: SODIUM CHLORIDE 0.9% 250ML 250 ML IV ONE (05:45)
[2021-04-22] MEDS: RIFAXIMIN 550 MG TABLET PO SCH (09:00)
[2021-04-22] MEDS ORDERED: CYANOCOBALAMIN INJ 1,000 MCG/ML VIAL IM SCH (09:00)
[2021-04-22] MEDS: PANTOPRAZOLE SOD 40 MG TABEC PO SCH (09:00)
[2021-04-22] MEDS: LACTULOSE SYRUP 20 GM/30 ML UDC PO SCH (09:00)
[2021-04-22] MEDS ORDERED: POTASSIUM CHLORIDE 10MEQ EA PO ONE (11:45)
[2021-04-22] MEDS ORDERED: SODIUM CHLORIDE 0.9% 250ML 250 ML ONE (17:23)
== END 2021-04-22 22:30 | DRG 432 ==
LOC: ER 20:21 → ERHOLD 22:33 → MED/SURG2 04-10 00:17
PROVIDERS: ADMIT Internal Medicine; ATTEND Internal Medicine
PROC: 30233N1 Transfusion of Nonautologous Red Blood Cells into Peripheral Vein, Percutaneous Approach (ICD-10-PCS; 2021-04-13)
PROC: 0W9G3ZZ Drainage of Peritoneal Cavity, Percutaneous Approach (ICD-10-PCS; principal; 2021-04-20)
DX: K70.31 Alcoholic cirrhosis of liver with ascites (principal); K72.00 Acute and subacute hepatic failure without coma; E87.1 Hypo-osmolality and hyponatremia; C22.0 Liver cell carcinoma; D62 Acute posthemorrhagic anemia; B19.20 Unspecified viral hepatitis C without hepatic coma; E83.51 Hypocalcemia; Z20.822 Contact with and (suspected) exposure to COVID-19; K21.9 Gastro-esophageal reflux disease without esophagitis; D63.8 Anemia in other chronic diseases classified elsewhere; D69.6 Thrombocytopenia, unspecified; N40.0 Benign prostatic hyperplasia without lower urinary tract symptoms; R53.81 Other malaise; Z86.19 Personal history of other infectious and parasitic diseases; Z88.5 Allergy status to narcotic agent; Z88.0 Allergy status to penicillin; F10.10 Alcohol abuse, uncomplicated
CPT/HCPCS: 36415; 49083; 70450; 71045; 74018; 74176; 74183; 74470; 80048; 80053; 80076; 81001; 82105; 82140; 82550; 82553; 82607; 82746; 83540; 83690; 83735; 84466; 84484; 85014; 85018; 85025; 85045; 85610; 85730; 86850; 86900; 86920; 87040; 87070; 87205; 88112; 88305; 89051; 93005; 97139; 99251; 99284; J0456; J0610; J1756; J3420; J3480; J7040; J7050; P9016; U0002